=== PATIENT | female | born 1935 | race Asian ===

== ENCOUNTER 2018-03-01 09:48 | Emergency (ER) | payer OTHER ==
[2018-03-01 10:09] VITALS: BMI 19.5
[2018-03-01 11:01] LABS: BASO % 0.5 % (0-2.0); EOS % 0.9 % (0-4.5); HEMATOCRIT 30.7 % (32.4-45.2); HEMOGLOBIN 10.4 GM/dL (10.7-15.3); LYMPH % 12.1 % (8-40); MCH 31.1 pg (25.7-33.7); MEAN CELL VOLUME 91.6 fl (80-96); MEAN PLT VOLUME 7.3 fl (7.5-11.1); MONO % 7.6 % (3.8-10.2); NEUT % 78.9 % (42.8-82.8); PLATELET COUNT 233 K/MM3 (134-434); RBC 3.35 M/mm3 (3.60-5.2); WHITE BLOOD COUNT 7.4 K/mm3 (4.0-10.0)
[2018-03-01 11:20] LABS: INR 0.93 (0.82-1.09); PROTHROMBIN TIME (PATIENT) 10.5 SEC (9.7-13.0)
[2018-03-01 11:25] LABS: ALBUMIN 3.3 g/dl (3.4-5.0); ALK PHOS 55 U/L (45-117); ANION GAP 12 (8-16); BILIRUBIN,TOTAL 0.6 mg/dL (0.2-1.0); BLOOD UREA NITROGEN 16 mg/dL (7-18); CHLORIDE 88 mmol/L (98-107); CO2 25 mmol/L (21-32); CREATININE 0.9 mg/dL (0.55-1.02); GLUCOSE,RANDOM 148 mg/dL (74-106); POTASSIUM 4.1 mmol/L (3.5-5.1); SGOT/AST 18 U/L (15-37); SGPT/ALT 18 U/L (12-78); SODIUM 125 mmol/L (136-145); TOT PROT 6.3 g/dl (6.4-8.2)
--- NOTE | 2018-03-01 12:14 | PDOC ---
History of Present Illness - General Chief Complaint: Injury Stated Complaint: INJURY, FALL/BL.THINNERS Time Seen by Provider: 03/01/18 10:24 History Source: Patient, Spouse Exam Limitations: No Limitations - History of Present Illness Initial Comments: 03/01/18 12:00 82-year-old female status post mechanical fall 3 days ago presents to the ED for evaluation of bruising to the right ribs and right hip. Patient states was walking when she tripped on a area with bunched carpet causing her to fall on her right side striking her head. Patient is also on Plavix and so this decided bring patient to the ER today. Patient had no LOC and has no complaints of headache, visual changes, weakness, or vomiting. states patient has had no change in mentation but concern for the bruising and the fact that she is on Plavix. Occurred: reports: other (3 days ago) Severity: reports: moderate Pain Location: reports: chest, head Method of Injury: Yes: fall Modifying Factors: improves with: None Loss of Consciousness: no loss of consciousness Associated Symptoms (Fall): denies symptoms Past History - Past Medical History Allergies/Adverse Reactions: Allergies Allergy/AdvReac Type Severity Reaction Status Date / Time No Known Allergies Allergy Verified 03/01/18 10:03 Home Medications: Ambulatory Orders Atorvastatin Ca [Lipitor] 20 mg PO HS 09/22/15 Clopidogrel Bisulfate [Plavix -] 75 mg PO DAILY 09/22/15 Isosorbide Mononitrate 60 mg PO DAILY 09/22/15 Metformin HCl [Metformin HCl ER] 750 mg PO DAILY 09/22/15 Metoprolol Succinate [Toprol XL -] 25 mg PO DAILY tab.sr.24h 09/26/15 Anemia: No Asthma: No Cancer: No Cardiac Disorders: Yes (CAD, angina) CVA: No COPD: No CHF: No DVT: No Dementia: No Diabetes: Yes Dialysis: No GI Disorders: No Disorders: No HTN: Yes Hypercholesterolemia: Yes Kidney Stones: No Liver Disease: No Psychiatric Problems: No Seizures: No Thyroid Disease: No Lung CA: No - Surgical History Cardiac Surgery: Yes (card stent) - Immunization History Immunization Up to Date: No - Suicide/Smoking/Psychosocial Hx Smoking History: Never smoked Have you smoked in the past 12 months: No Information on smoking cessation initiated: No Hx Alcohol Use: No Drug/Substance Use Hx: No Substance Use Type: None Hx Substance Use Treatment: No Review of Systems - Review of Systems Able to Perform ROS?: Yes Constitutional: No: Symptoms Reported HEENTM: No: Symptoms Reported Respiratory: No: Symptoms reported Cardiac (ROS): No: Symptoms Reported ABD/GI: No: Symptoms Reported : No: Symptoms Reported Musculoskeletal: Yes: Joint Pain (rt right ribd) Integumentary: Yes: Bruising Neurological: No: Headache, Weakness, Dizziness Hematologic/Lymphatic: Yes: See HPI *Physical Exam - Vital Signs Last Vital Signs Temp Pulse Resp BP Pulse Ox 98.3 F 64 18 116/53 100 03/01/18 10:06 03/01/18 10:06 03/01/18 10:06 03/01/18 10:06 03/01/18 10:06 - Physical Exam General Appearance: Yes: Nourished, Appropriately Dressed. No: Apparent Distress HEENT: positive: EOMI, MARIAH, TMs Normal, Pharynx Normal. negative: Pale Conjunctivae Neck: negative: Tender, Supple, Decreased range of motion Respiratory/Chest: positive: Chest Tender (rt ribs over 10th rib at MAL), Lungs Clear, Normal Breath Sounds. negative: Respiratory Distress, Accessory Muscle Use Cardiovascular: positive: Regular Rhythm, Regular Rate. negative: Murmur Gastrointestinal/Abdominal: positive: Soft, Tenderness (rt lower quadrant and rt suprapubic) Musculoskeletal: negative: CVA Tenderness, Vertebral Tenderness Extremity: positive: Normal Capillary Refill, Normal Inspection, Normal Range of Motion, Tender (rt iliac crest. no deformity/crepitus) Integumentary: positive: Warm, Moist, Ecchymosis (to rt hip, rt chest at 9-11th rib at mal, rt temporal, and mild to left knee, ) Neurologic: positive: Normal Mood/Affect, Motor Strength 5/5 Heart Score/ECG Review - ECG Intrepretation Rhythm: Regular Rhythm (sinus warner at 55) ED Treatment Course - LABORATORY CBC & Chemistry Diagram: 03/01/18 10:55 03/01/18 14:30 - ADDITIONAL ORDERS Additional order review: Laboratory Results 03/01/18 03/01/18 10:55 10:55 PT with INR 10.50 INR 0.93 Sodium 125 L Potassium 4.1 Chloride 88 L Carbon Dioxide 25 Anion Gap 12 BUN 16 Creatinine 0.9 Creat Clearance w eGFR 59.94 Random Glucose 148 H Calcium 8.0 L Total Bilirubin 0.6 AST 18 ALT 18 Alkaline Phosphatase 55 Total Protein 6.3 L Albumin 3.3 L 03/01/18 10:55 RBC 3.35 L MCV 91.6 MCHC 34.0 RDW 14.0 MPV 7.3 L D Neutrophils % 78.9 Lymphocytes % 12.1 D Monocytes % 7.6 Eosinophils % 0.9 Basophils % 0.5 - RADIOLOGY Radiology Studies Ordered: Category Date Time Status HEAD CT WITHOUT CONTRAST [CT] Stat CT Scan 03/01/18 10:[address] WITHOUT CONTRAST [CT] Stat CT Scan 03/01/18 10:44 Ordered RIBS RIGHT SIDE [RAD] Stat Radiology 03/01/18 10:39 Ordered Medical Decision Making - Medical Decision Making 03/01/18 11:34 Pt s/p mechanical fall landing on right side of body then striking head head on the carpet. Pt on exam with ecchymosis to rt temporal, rt rib area , rt iliac crest and mildly to left patella. Pt on plavix. pt to have labs, ua, ekg, ct of head and pelvis along with rib xray. Glascow scale 15. 03/01/18 12:38 Laboratory Tests 09/25/15 09/25/15 09/26/15 05:40 05:40 05:40 WBC Hgb 11.0 Hct Plt Count Neutrophils % Sodium 137 139 Potassium Chloride Carbon Dioxide Anion Gap BUN Creatinine Creat Clearance w eGFR Random Glucose Calcium Total Bilirubin AST ALT Alkaline Phosphatase Total Protein Albumin Ur Specific [place] Urine Ketones Urine Blood Urine Nitrite Ur Leukocyte Esterase 03/01/18 03/01/18 03/01/18 10:55 10:55 11:51 WBC 7.4 Hgb 10.4 L Hct 30.7 L Plt Count 233 Neutrophils % 78.9 Sodium 125 L Potassium 4.1 Chloride 88 L Carbon Dioxide 25 Anion Gap 12 BUN 16 Creatinine 0.9 Creat Clearance w eGFR 59.94 Random Glucose 148 H Calcium 8.0 L Total Bilirubin 0.6 AST 18 ALT 18 Alkaline Phosphatase 55 Total Protein 6.3 L Albumin 3.3 L Ur Specific [place] 1.005 Urine Ketones Negative Urine Blood Negative Urine Nitrite Negative Ur Leukocyte Esterase Negative Glascow scale 15. Patient remains alert and oriented with no complaints patient ordered for 1 L of fluid and will have repeat CT done in 6 hours 03/01/18 12:[address] abdominal CT is negative. Patient does have an acute nondisplaced fourth rib fracture at mid axillary region. Old fractures involving the right 10th 11 and possibly 12th ribs are noted. 03/01/18 15:04 Laboratory Tests 03/01/18 14:30 Sodium 129 L Potassium 4.4 Chloride 94 L Carbon Dioxide 26 Anion Gap 9 BUN 15 Creatinine 0.8 Random Glucose 140 H Calcium 7.5 L Noted improvment but Will order 1 liter NS IVF and then discharged. 03/01/18 16:10 Pt remains asymptomatic. No complaints presently. Ate lunch. Will discharge *DC/Admit/Observation/Transfer Diagnosis at time of Disposition: Fall at home, Hyponatremia, Rib fracture - Discharge Dispostion Disposition: HOME Condition at time of disposition: Improved - Referrals - Patient Instructions Printed Discharge Instructions: How to Prevent Falls, DI for Hyponatremia, DI for Rib Fracture Additional Instructions: Please drink plently of fluids. Eat foods with salt content. Splint rt rib when coughing or deep breathing. Take Motrin or Tylenol for pain. - Post Discharge Activity
[2018-03-01 12:30] LABS: URINE APPEARANCE CLEAR; URINE BILIRUBIN NEGATIVE (<2.0 mg/dL); URINE COLOR STRAW; URINE GLUCOSE (UA) NEGATIVE (NEGATIVE); URINE KETONE NEGATIVE (NEGATIVE); URINE LEUK ESTERASE NEGATIVE (NEGATIVE); URINE NITRITE NEGATIVE (NEGATIVE); URINE PROTEIN NEGATIVE (NEGATIVE); URINE UROBILINOGEN NEGATIVE mg/dL (0.2-1.0)
[2018-03-01] MEDS ORDERED: SODIUM CHLORIDE 1,000 ML IV STA ×2 (12:37→15:03)
--- NOTE | 2018-03-01 12:54 | EKG ---
Test Reason : Blood Pressure : / mmHG Vent. Rate : 055 BPM Atrial Rate : 055 BPM P-R Int : 206 ms QRS Dur : 086 ms QT Int : 402 ms P-R-T Axes : 002 058 062 degrees QTc Int : 384 ms SINUS BRADYCARDIA NONSPECIFIC T WAVE ABNORMALITY ABNORMAL ECG Confirmed by MD RICARDO, STACY ([id number]) on 03/01/2018 12:54:16 PM Referred By: Confirmed By:STACY SILVA MD
[2018-03-01 15:02] LABS: ANION GAP 9 (8-16); BLOOD UREA NITROGEN 15 mg/dL (7-18); CALCIUM 7.5 mg/dL (8.5-10.1); CHLORIDE 94 mmol/L (98-107); CO2 26 mmol/L (21-32); CREATININE 0.8 mg/dL (0.55-1.02); GLUCOSE,RANDOM 140 mg/dL (74-106); POTASSIUM 4.4 mmol/L (3.5-5.1); SODIUM 129 mmol/L (136-145)
[2018-03-01 16:52] VITALS: BP 123/76; PULSE 62; TEMP 98.3
== END 2018-03-01 16:45 | disposition home or self-care (01) ==
LOC: JER 09:48
PROC: 3E0337Z Introduction of Electrolytic and Water Balance Substance into Peripheral Vein, Percutaneous Approach (ICD-10-PCS; principal; 2018-03-01)
DX: S22.31XA Fracture of one rib, right side, initial encounter for closed fracture (principal); W18.09XA Striking against other object with subsequent fall, initial encounter; Y93.01 Activity, walking, marching and hiking; Y92.038 Other place in apartment as the place of occurrence of the external cause; Y99.8 Other external cause status; I25.119 Atherosclerotic heart disease of native coronary artery with unspecified angina pectoris; I10 Essential (primary) hypertension; E78.00 Pure hypercholesterolemia, unspecified; E11.9 Type 2 diabetes mellitus without complications; Z79.84 Long term (current) use of oral hypoglycemic drugs; Z79.01 Long term (current) use of anticoagulants
CPT/HCPCS: 36415; 70450-TC; 71101-TC-RT-FY; 72192-TC; 80048; 80053; 81003; 85025; 85610; 93005; 93010; 96360; 96361; 99283-25; J7030

== ENCOUNTER 2019-06-14 10:11 | Emergency (ER) | payer OTHER ==
[2019-06-14 10:18] VITALS: BMI 25.0
[2019-06-14 11:21] LABS: BASO % 0.8 % (0-2.0); EOS % 0.3 % (0-4.5); HEMATOCRIT 34.8 % (32.4-45.2); HEMOGLOBIN 11.7 GM/dL (10.7-15.3); LYMPH % 13.2 % (8-40); MCH 31.1 pg (25.7-33.7); MCHC 33.7 g/dl (32.0-36.0); MEAN CELL VOLUME 92.2 fl (80-96); MONO % 4.4 % (3.8-10.2); NEUT % 81.3 % (42.8-82.8); PLATELET COUNT 241 K/MM3 (134-434); RBC 3.77 M/mm3 (3.60-5.2); RDW 14.7 % (11.6-15.6); WHITE BLOOD COUNT 8.6 K/mm3 (4.0-10.0)
--- NOTE | 2019-06-14 11:23 | EKG ---
Test Reason : Blood Pressure : / mmHG Vent. Rate : 062 BPM Atrial Rate : 066 BPM P-R Int : 000 ms QRS Dur : 082 ms QT Int : 400 ms P-R-T Axes : 000 058 089 degrees QTc Int : 406 ms ATRIAL FIBRILLATION NONSPECIFIC T WAVE ABNORMALITY ABNORMAL ECG WHEN COMPARED WITH ECG OF 01-MAR-2018 10:49, ATRIAL FIBRILLATION HAS REPLACED SINUS RHYTHM NONSPECIFIC T WAVE ABNORMALITY NOW EVIDENT IN LATERAL LEADS Confirmed by YOLANDA MAYO, NORY ([id number]) on 06/14/2019 11:23:05 AM Referred By: Confirmed By:NORY GUERRERO MD
[2019-06-14 11:56] LABS: ALBUMIN 3.7 g/dl (3.4-5.0); ALK PHOS 56 U/L (45-117); ANION GAP 7 MMOL/L (8-16); BILIRUBIN,TOTAL 0.5 mg/dL (0.2-1); BLOOD UREA NITROGEN 16.5 mg/dL (7-18); CALCIUM 8.5 mg/dL (8.5-10.1); CHLORIDE 102 mmol/L (98-107); CO2 26 mmol/L (21-32); GLUCOSE,RANDOM 215 mg/dL (74-106); POTASSIUM 4.1 mmol/L (3.5-5.1); SGOT/AST 18 U/L (15-37); SGPT/ALT 18 U/L (13-61); SODIUM 136 mmol/L (136-145)
[2019-06-14] MEDS ORDERED: ACETAMINOPHEN 325 MG TABLET (FP) PO ONE (14:00)
[2019-06-14] MEDS ORDERED: ACETAMINOPHEN 325 MG TABLET (FP) ONE (14:07)
--- NOTE | 2019-06-14 14:07 | PDOC ---
Documentation entered by Courtney Mcmahon SCRIBE, acting as scribe for Steven Acosta MD. Steven Acosta MD: This documentation has been prepared by the Lisandro escalante Sammi, SCRIBE, under my direction and personally reviewed by me in its entirety. I confirm that the documentation accurately reflects all work, treatment, procedures, and medical decision making performed by me. History of Present Illness - General Chief Complaint: Lightheaded Stated Complaint: FALL/ LF SHOULDER INJURY - History of Present Illness Initial Comments: 06/14/19 10:55 The patient is an 84 year old female who presents to the emergency department for evaluation s/p unwitnessed fall around 2am this morning. She cannot recall the cause of the fall. The patient is currently complaining of a mild frontal headache and left shoulder pain. Denies neck or back pain. Denies chest pain. Past History - Past Medical History Allergies/Adverse Reactions: Allergies Allergy/AdvReac Type Severity Reaction Status Date / Time No Known Allergies Allergy Verified 06/14/19 10:19 Home Medications: Ambulatory Orders Atorvastatin Ca [Lipitor] 20 mg PO HS 09/22/15 Clopidogrel Bisulfate [Plavix -] 75 mg PO DAILY 09/22/15 metFORMIN HCL [Metformin ER Osmotic] 750 mg PO DAILY 09/22/15 Alendronate Sodium [Fosamax] 1 tab PO WEEKLY 06/14/19 Amlodipine Besylate [Norvasc -] 10 mg PO DAILY 06/14/19 Aspirin [ASA -] 81 mg PO DAILY 06/14/19 Hydrochlorothiazide [Hctz -] 25 mg PO DAILY 06/14/19 Losartan Potassium 100 mg PO DAILY 06/14/19 Metoprolol Succinate [Toprol XL -] 50 mg PO DAILY 06/14/19 Zolpidem Tartrate [Ambien] 10 mg PO HS 06/14/19 traZODone HCL [Trazodone HCl] 50 mg PO DAILY 06/14/19 Anemia: No Asthma: No Cancer: No Cardiac Disorders: Yes (CAD, angina) CVA: No COPD: No CHF: No DVT: No Dementia: No Diabetes: Yes Dialysis: No GI Disorders: No Disorders: No HTN: Yes Hypercholesterolemia: Yes Kidney Stones: No Liver Disease: No Psychiatric Problems: No Seizures: No Thyroid Disease: No Lung CA: No - Surgical History Cardiac Surgery: Yes (card stent) - Immunization History Immunization Up to Date: No - Psycho Social/Smoking Cessation Hx Smoking History: Never smoked Have you smoked in the past 12 months: No Hx Alcohol Use: No Drug/Substance Use Hx: No Substance Use Type: None Hx Substance Use Treatment: No Review of Systems - Review of Systems Comments:: 06/14/19 10:56 CONSTITUTIONAL: No fever, no chills, no fatigue CARDIOVASCULAR: No chest pain, no palpitations RESPIRATORY: No cough, no SOB GI: No abdominal pain, no nausea, no vomiting, no constipation, no diarrhea GENITOURINARY: No dysuria, no frequency, no hematuria MUSKULOSKELETAL: +left shoulder pain. No backpain, no joint pain. SKIN: No rash NEURO: +headache. *Physical Exam - Vital Signs Last Vital Signs Temp Pulse Resp BP Pulse Ox 97.9 F 61 16 127/57 L 97 06/14/19 10:13 06/14/19 10:13 06/14/19 10:13 06/14/19 10:13 06/14/19 10:13 - Physical Exam Comments: 06/14/19 13:02 CONSTITUTIONAL: Well-appearing; well-nourished; in no apparent distress HEAD: Normocephalic; atraumatic EYES: PERRL; EOM intact ENMT: External appears normal; normal oropharynx NECK: Supple; non-tender; no cervical lymphadenopathy CARD: Normal S1, S2; no murmurs, rubs, or gallops RESP: Normal chest excursion with respiration; breath sounds clear and equal bilaterally; no wheezes, rhonchi, or rales ABD: Soft, non-distended; non-tender; no palpable organomegaly, no palpable hernias EXT: +Ecchymosis pain to left shoulder limited abductions flexion due to pain. distal pulses intact SKIN: Warm, dry, no rash NEURO: Normal speech, cranial nerves II-XII intact, negative pronator drift, 5/ 5 motor x4, normal sensation to light touch in all 4 extremities, normal cerebellar exam, normal reflexes and tone Heart Score/ECG Review - ECG Impressions Comment:: 06/14/19 11:15 normal sinus with premature atrial contractions ED Treatment Course - LABORATORY CBC & Chemistry Diagram: 06/14/19 11:00 06/14/19 11:00 - ADDITIONAL ORDERS Additional order review: Laboratory Results 06/14/19 11:00 Sodium 136 Potassium 4.1 Chloride 102 Carbon Dioxide 26 Anion Gap 7 L BUN 16.5 Creatinine 1.0 Est GFR (CKD-EPI)AfAm 59.91 Est GFR (CKD-EPI)NonAf 51.69 Random Glucose 215 H Calcium 8.5 Total Bilirubin 0.5 AST 18 ALT 18 Alkaline Phosphatase 56 Creatine Kinase 126 Troponin I < 0.02 Total Protein 7.0 Albumin 3.7 06/14/19 11:00 RBC 3.77 MCV 92.2 MCHC 33.7 RDW 14.7 MPV 8.0 Neutrophils % 81.3 Lymphocytes % 13.2 Monocytes % 4.4 Eosinophils % 0.3 Basophils % 0.8 - RADIOLOGY Radiology Studies Ordered: Category Date Time Status CERVICAL SPINE CT W/O CONTR [CT] Stat CT Scan 06/14/19 10:[address] WITHOUT CONTRAST [CT] Stat CT Scan 06/14/19 10:54 Completed CHEST - PA [RAD] Stat Radiology 06/14/19 12:57 Taken PELVIS [RAD] Stat Radiology 06/14/19 10:59 Taken SHOULDER-RIGHT [RAD] Stat Radiology 06/14/19 10:59 Completed Medical Decision Making - Medical Decision Making 06/14/19 14:01 Patient is well-appearing 84-year-old female with history of diabetes, hypertension who presented to the ER for left shoulder pain after a mechanical fall several hours prior to arrival. Patient had taken zolpidem the night before and fell down in the middle the night. In the ER, patient was noted to be in O x3, with CT of head and cervical spine revealing no evidence of acute traumatic injury. Right shoulder and pelvic x-rays reveal no evidence of fracture dislocation. Chest x-ray reveals multiple previous rib fractures but no evidence of infiltrate or effusion. EKG reveals normal sinus rhythm with PACs but no evidence of ischemia or arrhythmia. Computer interpretation of atrial fibrillation is incorrect. I advised the patient and her that zolpidem and trazodone are contraindicated in the elderly. They have expressed understanding. They will follow-up with the PMD promptly and return immediately for recurring falls. Discharge - Discharge Information Problems reviewed: Yes Clinical Impression/Diagnosis: Contusion of shoulder, right Qualifiers: Encounter type: initial encounter Qualified Code(s): S40.011A - Contusion of right shoulder, initial encounter Head injury due to trauma Qualifiers: Encounter type: initial encounter Qualified Code(s): S09.90XA - Unspecified injury of head, initial encounter Fall at home Qualifiers: Encounter type: initial encounter Qualified Code(s): W19.XXXA - Unspecified fall, initial encounter; Y92.009 - Unspecified place in unspecified non- institutional (private) residence as the place of occurrence of the external cause Condition: Stable Disposition: HOME - Follow up/Referral Referrals: ON STAFF,NOT [Primary Care Provider] - Twin Gonzales MD [Staff Physician] - - Patient Discharge Instructions Patient Printed Discharge Instructions: DI for Closed Head Injury, DI for Contusion - Post Discharge Activity
[2019-06-14 14:14] VITALS: BP 118/63; PULSE 62; TEMP 98.2
== END 2019-06-14 14:24 | disposition home or self-care (01) ==
LOC: JER 10:11
DX: S40.011A Contusion of right shoulder, initial encounter (principal); S09.90XA Unspecified injury of head, initial encounter; W18.39XA Other fall on same level, initial encounter; Y93.9 Activity, unspecified; Y92.009 Unspecified place in unspecified non-institutional (private) residence as the place of occurrence of the external cause; Z95.5 Presence of coronary angioplasty implant and graft; E78.00 Pure hypercholesterolemia, unspecified; I25.10 Atherosclerotic heart disease of native coronary artery without angina pectoris; E11.9 Type 2 diabetes mellitus without complications; I10 Essential (primary) hypertension
CPT/HCPCS: 36415; 70450-TC; 71045-TC-FY; 72125-TC; 72170-TC-FY; 73030-TC-RT-FY; 80053; 82550; 84484; 85025; 93005; 93010; 99284-25

== ENCOUNTER 2019-08-10 10:06 | Inpatient (IN) | payer OTHER ==
[2019-08-10 10:21] VITALS: BMI 25.2
[2019-08-10] MEDS ORDERED: KETOROLAC TROMETHAMINE 30 MG/1 ML VIAL IM ONE (10:39)
--- NOTE | 2019-08-10 10:40 | PDOC ---
History of Present Illness - General Chief Complaint: Injury Stated Complaint: FALL Time Seen by Provider: 08/10/19 10:21 History Source: Patient, Family Exam Limitations: No Limitations - History of Present Illness Initial Comments: 08/10/19 10:39 HPI 84-year-old female PMHx of DM, HTN, hyperlipidemia, CAD x/p PCI on ASA and plavix presenting with mechanical trip and fall after missing 1 step and fell onto her back onto concrete. No LOC. Complaining of mild headache, and diffuse back pain at the site of her trauma. No prodromal symptoms including dizziness, chest pain or shortness of breath. No recent infections including cough or congestion fevers or chills. no history of Afib, no anticoagulant use +frequent falls, +2nd fall in 2 months, last in May 2019 which she came to [facility] for. PMD Dr Phan, [place] Trauma ROS: Constitutional: no fevers or chills. HEENT: +headache, no dizziness. No visual or hearing changes. No dental pain. No neck pain CVS: no chest pain or palpitations, no syncope Resp: no shortness of breath Abdomen: no abdominal pain MUSCULOSKELETAL: No joint pain and swelling. No muscle pain/arthralgias. Back: +back pain SKIN: no redness or skin changes, no discharge, no rash. No wounds. Hematologic: no easy bruising/bleeding. NEUROLOGIC: No weakness, numbness or tingling. +headache Allergic/Immunologic: no allergies All other systems reviewed and negative, or as documented in HPI. Physical exam: General: GCS 15 - NAD, well appearing HEENT: NCAT, PERRL, EOMI. Airway intact. No battles sign or raccoon eyes. No e/ o ocular. Dentition intact. No e/o septal hematoma, nasal bridge stable. Neck: neck supple, no midline C spine tenderness or deformity, ROM intact. No anterior mass or crepitus, trachea midline. Resp: Lungs clear bilaterally Chest: no clavicle or chest wall tenderness or crepitus CVS: irregularly irregular, 2+ pulses throughout. Abdomen: Abdomen soft, nontender, nondistended. Back: Back + midline spinal tenderness along thoracic/lumbar spine, ROM limited 2/2 pain, no stepoffs. MSK: Pelvis stable, Extremities symmetric, no focal areas of tenderness or deformities, proximal and distally; no pain on axial loading. FROM in all extrem. Neuro: Alert, oriented appropriately. CN II-XII grossly symmetric and intact. no focal neuro deficits. Sensation and strength intact throughout. Gait normal/ stable. clear speech Skin: intact, normal color and well perfused. 08/10/19 10:40 08/10/19 10:41 08/10/19 11:20 08/10/19 11:20 08/10/19 14:05 08/10/19 14:52 Past History - Past Medical History Allergies/Adverse Reactions: Allergies Allergy/AdvReac Type Severity Reaction Status Date / Time ibuprofen Allergy Severe Verified 08/10/19 10:48 Home Medications: Ambulatory Orders Atorvastatin Ca [Lipitor] 20 mg PO HS 09/22/15 Clopidogrel Bisulfate [Plavix -] 75 mg PO DAILY 09/22/15 metFORMIN HCL [Metformin ER Osmotic] 750 mg PO DAILY 09/22/15 Alendronate Sodium [Fosamax] 1 tab PO WEEKLY 06/14/19 Amlodipine Besylate [Norvasc -] 10 mg PO DAILY 06/14/19 Aspirin [ASA -] 81 mg PO DAILY 06/14/19 Hydrochlorothiazide [Hctz -] 25 mg PO DAILY 06/14/19 Losartan Potassium 100 mg PO DAILY 06/14/19 Metoprolol Succinate [Toprol XL -] 50 mg PO DAILY 06/14/19 Zolpidem Tartrate [Ambien] 10 mg PO HS 06/14/19 traZODone HCL [Trazodone HCl] 50 mg PO DAILY 06/14/19 Anemia: No Asthma: No Cancer: No Cardiac Disorders: Yes (CAD, angina) CVA: No COPD: No CHF: No DVT: No Dementia: No Diabetes: Yes Dialysis: No GI Disorders: No Disorders: No HTN: Yes Hypercholesterolemia: Yes Kidney Stones: No Liver Disease: No Psychiatric Problems: No Seizures: No Thyroid Disease: No Lung CA: No - Surgical History Cardiac Surgery: Yes (card stent) - Immunization History Immunization Up to Date: No - Psycho Social/Smoking Cessation Hx Smoking History: Never smoked Have you smoked in the past 12 months: No Hx Alcohol Use: No Drug/Substance Use Hx: No Substance Use Type: None Hx Substance Use Treatment: No *Physical Exam - Vital Signs Last Vital Signs Temp Pulse Resp BP Pulse Ox 98.3 F 69 18 122/79 95 12/12/19 10:19 08/10/19 10:19 08/10/19 10:19 08/10/19 10:19 08/10/19 10:19 Heart Score/ECG Review #1 ECG reviewed & interpreted by me at: 10:25 General ECG Interpretation: Normal Rate, Normal Intervals 08/10/19 11:20 Atrial fibrillation at 81 bpm, nonspecific T wave abnormalities diffusely change from prior EKG ED Treatment Course - LABORATORY CBC & Chemistry Diagram: 08/10/19 11:30 08/10/19 11:30 - RADIOLOGY Radiology Studies Ordered: Category Date Time Status CERVICAL SPINE CT W/O CONTR [CT] Stat CT Scan 08/10/19 10:[address] WITHOUT CONTRAST [CT] Stat CT Scan 08/10/19 10:[address] W/O CONTRAST [CT] Stat CT Scan 08/10/19 10:[address] W/O CONTRAST [CT] Stat CT Scan 08/10/19 10:36 Ordered Medical Decision Making - Medical Decision Making 08/10/19 10:40 Vital Signs Temp Pulse Resp BP Pulse Ox 98.3 F 69 18 122/79 95 08/10/19 10:19 08/10/19 10:19 08/10/19 10:19 08/10/19 10:19 08/10/19 10:19 vitals wnl, reassuring Trauma ddx: ICH, SDH/ EDH, C spine injury/strain, extremity sprain/fracture, pelvis fracture. MSK contusion, msk spasms. compression fracture. Clinically doubt Intra abdominal and thoracic injuries/bleed Trauma Neg: No evidence of skull fracture, intracranial bleed, dental trauma, cervical, thoracic, or vertebral fracture or subluxation, no suspicion of thoracic, abdominal, pelvic or extremity injury by exam. Given Percocet here for headache and lower back pain. CT head and C-spine, T and L-spine as well to evaluate for compression fracture. She has no respiratory distress, no chest abdomen or extremity complaints. Abdomen is soft and nontender. No skin changes or discoloration or ecchymosis to suggest underlying organ injury or bleeding. Pelvis is stable. Neurologically intact, GCS is 15 speech is clear. no prodromal sx to suggest cardio/neurogenic etiology Will pain control, imaging and reassess. 08/10/19 14:03 CT head unremarkable for head bleed or injuries. No evidence of fracture noted on cervical, thoracic and lumbar spine, incidental hemangiomas noted. Degenerative changes are noted in C4-C6 levels. Patient was reassessed continues to have mid back pain, worse with moving and unable to ambulate, unsafe for discharge at this time. Will give additional dose of analgesia patient already has Lidoderm patch on her back without effect. treating with IV ceftriaxone, follow-up on urine cultures. labs and lytes wnl, trop neg. no e/o syncope. chads vasc score is 5 with age, comorbidities, will need AC, but pt has fall risk. defer to cards for now. Will admit for inability ambulate, back pain after fall, UTI, new onset Afib? unsafe for discharge at this time. s/o to [facility], admitting to Dr Jara. 08/10/19 14:06 08/10/19 14:52 08/10/19 14:53 Discharge - Discharge Information Problems reviewed: Yes Clinical Impression/Diagnosis: Atrial fibrillation Back pain Qualifiers: Back pain location: back pain in unspecified location Chronicity: acute Back pain laterality: midline Qualified Code(s): M54.9 - Dorsalgia, unspecified UTI (urinary tract infection) Qualifiers: Urinary tract infection type: site unspecified Hematuria presence: without hematuria Qualified Code(s): N39.0 - Urinary tract infection, site not specified Condition: Fair - Admission Yes - Follow up/Referral Referrals: ON STAFF,NOT [Primary Care Provider] - - Patient Discharge Instructions - Post Discharge Activity
[2019-08-10 11:44] LABS: BASO % 0.4 % (0-2.0); EOS % 0.4 % (0-4.5); HEMATOCRIT 35.5 % (32.4-45.2); HEMOGLOBIN 11.9 GM/dL (10.7-15.3); LYMPH % 14.7 % (8-40); MCH 31.2 pg (25.7-33.7); MCHC 33.6 g/dl (32.0-36.0); MEAN PLT VOLUME 8.3 fl (7.5-11.1); MONO % 4.1 % (3.8-10.2); NEUT % 80.4 % (42.8-82.8); PLATELET COUNT 267 K/MM3 (134-434); RBC 3.82 M/mm3 (3.60-5.2); RDW 14.1 % (11.6-15.6); WHITE BLOOD COUNT 11.9 K/mm3 (4.0-10.0)
[2019-08-10 11:47] LABS: EPI CELLS 0.4 /HPF (0-5/HPF); HYALINE CASTS 2 /lpf (0-8); PH,URINE 6.5 (5.0-8.0); URINE APPEARANCE CLEAR; URINE BILIRUBIN NEGATIVE (NEGATIVE); URINE COLOR YELLOW; URINE GLUCOSE (UA) NEGATIVE (NEGATIVE); URINE KETONE NEGATIVE (NEGATIVE); URINE LEUK ESTERASE TRACE (NEGATIVE); URINE NITRITE POSITIVE (NEGATIVE); URINE PROTEIN NEGATIVE (NEGATIVE); URINE RBC 1 /hpf (0-4); URINE UROBILINOGEN 0.2 mg/dL (0.2-1.0); URINE WBC 5 /hpf (0-5)
[2019-08-10 12:12] LABS: ALK PHOS 63 U/L (45-117); ANION GAP 8 MMOL/L (8-16); BILIRUBIN,TOTAL 0.7 mg/dL (0.2-1); BLOOD UREA NITROGEN 14.2 mg/dL (7-18); CALCIUM 9.1 mg/dL (8.5-10.1); CHLORIDE 98 mmol/L (98-107); CO2 25 mmol/L (21-32); CREATININE 0.9 mg/dL (0.55-1.3); GLUCOSE,RANDOM 108 mg/dL (74-106); POTASSIUM 3.8 mmol/L (3.5-5.1); SGOT/AST 25 U/L (15-37); SGPT/ALT 20 U/L (13-61); SODIUM 131 mmol/L (136-145); TOT PROT 7.4 g/dl (6.4-8.2)
[2019-08-10] MEDS ORDERED: CEFTRIAXONE 1,000 MG in DEXTROSE 5%-WATER - 50 ML IVPB ONE (14:02)
[2019-08-10] MEDS ORDERED: morphine CARPU-JECT 4 MG/1 ML DISP.SYRIN IVPUSH ONE (14:02)
[2019-08-10] MEDS ORDERED: MORPHINE SULFATE 2 MG/ML VIAL ONE (14:52)
[2019-08-10] MEDS ORDERED: CEFTRIAXONE 1 GM/50 ML BAG ONE (14:52)
--- NOTE | 2019-08-10 15:42 | HP ---
CHIEF COMPLAINT: falls at home, back pain PCP: HISTORY OF PRESENT ILLNESS: Patient is an 84 year old female with a significant past medical history of diabetes, hypertension, hyperlipidemia, CAD x/p PCI who presented to the ED today s/p fall secondary to tripping over a wet floor and fell onto her back onto concrete. She denies any LOC loss but complains of mild headache and severe lower back pain. She denies any dizziness, chest pain or shortness of breath prior to fall. No fevers, no recent infections, no chills. No previous history of irregular heart rate and was to follow up at the end of this month for follow up with a new sleep medicine physician. Patient reports frequent falls at home, a total of 3 falls since February 2019 without LOC loss, no incontinence post fall, no history of seizures. She reports intermittent dizziness but denies any dizziness with the fall she had today. ER course was notable for: (1) thoracic spine ct w/o contrast, no evidence of acute fx. hemangioma t9, lumbar spine: degenerative changes, multifocal. cervical spine: degenerative changes c4-5 (2) atrial fibrillation at 81 bpm, nonspecific T wave abnormalities (3) head ct negative Recent Travel: PAST MEDICAL HISTORY: diabetes, hypertension, hyperlipidemia, CAD x/p PCI 2003 PAST SURGICAL HISTORY: Social History: Smoking: none reported Alcohol: none reported Drugs: none reported Allergies ibuprofen Allergy (Severe, Verified 08/10/19 10:48) HOME MEDICATIONS: Home Medications Medication Instructions Recorded Atorvastatin Ca [Lipitor] 20 mg PO HS 09/22/15 Clopidogrel Bisulfate [Plavix -] 75 mg PO DAILY 09/22/15 metFORMIN HCL [Metformin ER 750 mg PO DAILY 09/22/15 Osmotic] Alendronate Sodium [Fosamax] 1 tab PO WEEKLY 06/14/19 Amlodipine Besylate [Norvasc -] 10 mg PO DAILY 06/14/19 Aspirin [ASA -] 81 mg PO DAILY 06/14/19 Hydrochlorothiazide [Hctz -] 25 mg PO DAILY 06/14/19 Losartan Potassium 100 mg PO DAILY 06/14/19 Metoprolol Succinate [Toprol XL -] 50 mg PO DAILY 06/14/19 Zolpidem Tartrate [Ambien] 10 mg PO HS 06/14/19 traZODone HCL [Trazodone HCl] 50 mg PO DAILY 06/14/19 REVIEW OF SYSTEMS CONSTITUTIONAL: Absent: fever, chills, diaphoresis, generalized weakness, malaise, loss of appetite, weight change HEENT: Absent: rhinorrhea, nasal congestion, throat pain, throat swelling, difficulty swallowing, mouth swelling, ear pain, eye pain, visual changes CARDIOVASCULAR: Absent: chest pain, peripheral edema RESPIRATORY: Absent: cough, shortness of breath, dyspnea with exertion, orthopnea, wheezing, stridor, hemoptysis GASTROINTESTINAL: Absent: abdominal pain, abdominal distension, nausea, vomiting, diarrhea, constipation, melena, hematochezia GENITOURINARY: Absent: dysuria, frequency, urgency, hesitancy, hematuria, flank pain, genital pain MUSCULOSKELETAL: Absent: joint swelling, neck pain SKIN: Absent: rash, itching, pallor HEMATOLOGIC/IMMUNOLOGIC: Absent: easy bleeding, easy bruising, lymphadenopathy, frequent infections ENDOCRINE: Absent: unexplained weight gain, unexplained weight loss, heat intolerance, cold intolerance NEUROLOGIC: Absent: headache, focal weakness or paresthesias, mental status changes, bladder or bowel incontinence PSYCHIATRIC: Absent: anxiety, depression, suicidal or homicidal ideation, hallucinations. PHYSICAL EXAMINATION Vital Signs - 24 hr 08/10/19 08/10/19 08/10/19 10:19 14:40 15:23 Temperature 98.3 F Pulse Rate 69 Pulse Rate [ 81 83 Radial] Respiratory 18 18 18 Rate Blood Pressure 122/79 Blood Pressure 121/71 120/62 [Left Arm] O2 Sat by Pulse 95 98 98 Oximetry (%) GENERAL: Awake, alert, and fully oriented HEAD: Normal with no signs of trauma. EYES: Pupils equal, round and reactive to light, extraocular movements intact, sclera anicteric, conjunctiva clear. No lid lag. EARS, NOSE, THROAT: Ears normal, nares patent, oropharynx clear without exudates. Moist mucous membranes. NECK: Normal range of motion, supple without lymphadenopathy, JVD, or masses. LUNGS: Breath sounds equal, clear to auscultation bilaterally. HEART: irregular 80s ABDOMEN: Soft, nontender, not distended, normoactive bowel sounds, no guarding, no rebound, no masses. No hepatomegaly or splenomegaly. MUSCULOSKELETAL: Normal range of motion at all joints. No bony deformities or tenderness. No CVA tenderness. UPPER EXTREMITIES: No peripheral edema. LOWER EXTREMITIES: No peripheral edema. NEUROLOGICAL: Normal speech. PSYCHIATRIC: Cooperative. Good eye contact. Appropriate mood and affect. SKIN: Warm, dry, normal turgor, no rashes or lesions noted, normal capillary refill. Laboratory Results - last 24 hr 08/10/19 08/10/19 08/10/19 11:25 11:30 11:30 WBC 11.9 H RBC 3.82 Hgb 11.9 Hct 35.5 MCV 93.0 MCH 31.2 MCHC 33.6 RDW 14.1 Plt Count 267 MPV 8.3 Absolute Neuts (auto) 9.6 H Neutrophils % 80.4 Lymphocytes % 14.7 Monocytes % 4.1 Eosinophils % 0.4 Basophils % 0.4 Nucleated RBC % 0 Sodium 131 L Potassium 3.8 Chloride 98 Carbon Dioxide 25 Anion Gap 8 BUN 14.2 Creatinine 0.9 Est GFR (CKD-EPI)AfAm 68.05 Est GFR (CKD-EPI)NonAf 58.71 Random Glucose 108 H Calcium 9.1 Total Bilirubin 0.7 AST 25 ALT 20 Alkaline Phosphatase 63 Creatine Kinase 134 Troponin I < 0.02 Total Protein 7.4 Albumin 4.0 Urine Color Yellow Urine Appearance Clear Urine pH 6.5 Ur Specific [place] 1.009 L Urine Protein Negative Urine Glucose (UA) Negative Urine Ketones Negative Urine Blood Negative Urine Nitrite Positive H Urine Bilirubin Negative Urine Urobilinogen 0.2 Ur Leukocyte Esterase Trace Urine WBC (Auto) 5 Urine RBC (Auto) 1 Urine Casts (Auto) 2 U Epithel Cells (Auto) 0.4 Urine Bacteria (Auto) 2371.0 ASSESSMENT/PLAN: Problem List - Problem (1) Near syncope Assessment/Plan: mutiple falls at home of uncertain etiology some falls sound like mechanical falls but also reports intermittent dizziness noted to have new onset afib not on any anticoagulation head ct with mild/moderate atrophy troponins negative x 2 will need orthostatics, if not orthostatic, consider outpatient tilt table test ECHO 09/24/15 with normal LV size and function. No regional wall motion abnormalities, mild TR, mild pulmonic valvular regurg Hold medications that can cause dizziness, hold ambien Code(s): R55 - SYNCOPE AND COLLAPSE (2) Fall at home Assessment/Plan: for physical therapy eval Many falls at home, at least 3 in the last 5 months per no LOC loss Lidoderm patch and percocet per pain management start on physical therapy Code(s): W19.XXXA - UNSPECIFIED FALL, INITIAL ENCOUNTER; Y92.099 - UNSP PLACE IN OTH NON-INSTITUTIONAL RESIDENCE PLACE Qualifiers: Encounter type: initial encounter Qualified Code(s): W19.XXXA - Unspecified fall, initial encounter; Y92.009 - Unspecified place in unspecified non-institutional (private) residence as the place of occurrence of the external cause (3) Hypertension Assessment/Plan: continue home medications monitor on tele orthostatics to be ordered for falls Code(s): I10 - ESSENTIAL (PRIMARY) HYPERTENSION (4) Diabetes Assessment/Plan: Hmga1c in a.m. novolg with monitoring of bgms Code(s): E11.9 - TYPE 2 DIABETES MELLITUS WITHOUT COMPLICATIONS (5) Atrial fibrillation Assessment/Plan: new onset not on any anticoagulation has not followed with her cardiolgist and has a follow up appointment per this month per her Code(s): I48.91 - UNSPECIFIED ATRIAL FIBRILLATION (6) CAD (coronary artery disease) Assessment/Plan: Continue Plavix Continue Lipitor Code(s): I25.10 - ATHSCL HEART DISEASE OF [place] CORONARY ARTERY W/O ANG PCTRS (7) Back pain Assessment/Plan: s/p fall pain management physical therapy Code(s): M54.9 - DORSALGIA, UNSPECIFIED Qualifiers: Back pain location: back pain in unspecified location Chronicity: acute Back pain laterality: midline Qualified Code(s): M54.9 - Dorsalgia, unspecified (8) Hyponatremia Assessment/Plan: monitor with daily labs Code(s): E87.1 - HYPO-OSMOLALITY AND HYPONATREMIA (9) UTI (urinary tract infection) Assessment/Plan: UA with + nitrate, bacteria 2371 start on ceftriaxone, urine culture pending Code(s): N39.0 - URINARY TRACT INFECTION, SITE NOT SPECIFIED Visit type - Emergency Visit Emergency Visit: Yes ED Registration Date: 08/10/19 Care time: The patient presented to the Emergency Department on the above date and was hospitalized for further evaluation of their emergent condition. - New Patient This patient is new to me today: Yes Date on this admission: 08/11/19 - Critical Care Critical Care patient: No
[2019-08-10] MEDS: LIDOCAINE 5% TOPICAL PATCH TP SCH (18:17)
[2019-08-10] MEDS ORDERED: LIDOCAINE 5% TOPICAL PATCH ONE (20:40)
[2019-08-10] MEDS ORDERED: oxyCODONE HCL 5 MG TABLET ONE (20:53)
[2019-08-10] MEDS: oxyCODONE HCL 5 MG TABLET PO PRN (20:58)
[2019-08-10] MEDS: LIDOCAINE PATCH REMOVAL MC SCH (22:16)
[2019-08-10] MEDS ORDERED: ZOLPIDEM TARTRATE 5 MG TABLET PO ONE (22:58)
[2019-08-10] MEDS ORDERED: ZOLPIDEM TARTRATE 5 MG TABLET ONE (23:09)
[2019-08-10] MEDS ORDERED: ATORVASTATIN CA 20 MG TABLET (FP) ONE (23:10)
[2019-08-10] MEDS: ATORVASTATIN CA 20 MG TABLET (FP) PO SCH (23:19)
[2019-08-10] MEDS: INSULIN SLIDING SCALE (NOVOLOG) 1 VIAL SQ SCH (23:19)
[2019-08-11 06:25] LABS: BASO % 0.5 % (0-2.0); EOS % 0.6 % (0-4.5); HEMATOCRIT 32.3 % (32.4-45.2); HEMOGLOBIN 11.2 GM/dL (10.7-15.3); LYMPH % 15.1 % (8-40); MCH 31.8 pg (25.7-33.7); MCHC 34.6 g/dl (32.0-36.0); MEAN CELL VOLUME 91.9 fl (80-96); MEAN PLT VOLUME 8.1 fl (7.5-11.1); MONO % 5.8 % (3.8-10.2); PLATELET COUNT 231 K/MM3 (134-434); RBC 3.51 M/mm3 (3.60-5.2); RDW 13.6 % (11.6-15.6); WHITE BLOOD COUNT 6.4 K/mm3 (4.0-10.0)
[2019-08-11 06:58] LABS: ALBUMIN 3.3 g/dl (3.4-5.0); BILIRUBIN,TOTAL 0.8 mg/dL (0.2-1); BLOOD UREA NITROGEN 17.2 mg/dL (7-18); CALCIUM 8.9 mg/dL (8.5-10.1); CREATININE 0.9 mg/dL (0.55-1.3); MAGNESIUM 1.8 mg/dL (1.8-2.4); POTASSIUM 3.7 mmol/L (3.5-5.1); TOT PROT 6.6 g/dl (6.4-8.2)
[2019-08-11] MEDS: INSULIN SLIDING SCALE (NOVOLOG) 1 VIAL SQ SCH ×4 (08:43→22:27)
--- NOTE | 2019-08-11 09:30 | CONSULT ---
Consult - text type - Consultation Consultation Note: [facility] *LIVE* Neurology CHIEF COMPLAINT: falls at home, back pain HISTORY OF PRESENT ILLNESS: Patient is an 84 year old Greenlandic speaking (but understands some Haitian) female with a significant past medical history of diabetes, hypertension, hyperlipidemia, CAD x/p PCI who presented to the ED on day of admission s/p fall secondary to tripping over a wet floor and fell onto her back onto concrete. She denies any LOC loss but complains of mild headache and severe lower back pain. She denies any dizziness per notes, chest pain or shortness of breath prior to fall. No fevers, no recent infections, no chills. No previous history of irregular heart rate and was to follow up at the end of this month for follow up with a new safety director. Patient reports frequent falls at home, a total of 3 falls since February 2019 without LOC loss, no incontinence post fall, no history of seizures. She reports intermittent dizziness but denies any dizziness with the fall she had today. Head CT completed, mild to moderate atrophy with no evidence of acute pathology. Cervical spine CT, indicates degenerative changes, no fracture. 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 Lumbar spine ct indicates multifocal degenerative changes with possible neuroforaminal compromise, no acute fracture. Carotid doppler completed, no evidence of artery stenosis. EKG indicates atrial fibrillation at 81 bpm, nonspecific T wave abnormalities. During my evaluation, she appeared fatigued and slightly confused. Will order MRI to ule out CVA She may benefit from physical therapy and short-term rehabilitation to help with her gait and ambulation which remains unsteady. We'll need evaluation regarding further assistive devices. PAST MEDICAL HISTORY: diabetes, hypertension, hyperlipidemia, CAD x/p PCI 2003 PAST SURGICAL HISTORY: Social History: Smoking: none reported Alcohol: none reported Drugs: none reported Allergies ibuprofen Allergy (Severe, Verified 08/10/19 10:48) HOME MEDICATIONS: Ambulatory Orders Atorvastatin Ca [Lipitor] 20 mg PO HS 09/22/15 Clopidogrel Bisulfate [Plavix -] 75 mg PO DAILY 09/22/15 metFORMIN HCL [Metformin ER Osmotic] 750 mg PO DAILY 09/22/15 Alendronate Sodium [Fosamax] 1 tab PO WEEKLY 06/14/19 Amlodipine Besylate [Norvasc -] 10 mg PO DAILY 06/14/19 Aspirin [ASA -] 81 mg PO DAILY 06/14/19 Hydrochlorothiazide [Hctz -] 25 mg PO DAILY 06/14/19 Losartan Potassium 100 mg PO DAILY 06/14/19 Metoprolol Succinate [Toprol XL -] 50 mg PO DAILY 06/14/19 Zolpidem Tartrate [Ambien] 10 mg PO HS 06/14/19 traZODone HCL [Trazodone HCl] 50 mg PO DAILY 06/14/19 Active Medications Amlodipine Besylate (Norvasc -) 10 mg PO DAILY [facility] Aspirin (Asa -) 81 mg PO DAILY [facility] Atorvastatin Calcium (Lipitor -) 20 mg PO HS [facility] Last Admin: 08/10/19 23:19 Dose: 20 mg Clopidogrel Bisulfate (Plavix -) 75 mg PO DAILY [facility] Enoxaparin Sodium (Lovenox -) 60 mg SQ BID [facility] Hydrochlorothiazide (Hctz -) 25 mg PO DAILY [facility] Ceftriaxone Sodium 1 gm/ (Dextrose) 50 mls @ 200 mls/hr IVPB DAILY [facility]; Protocol Insulin Aspart (Novolog Vial Sliding Scale -) 1 vial SQ ACHS [facility]; Protocol Last Admin: 08/11/19 08:43 Dose: Not Given Lidocaine (Lidoderm Patch -) 1 patch TP DAILY [facility] Last Admin: 08/10/19 18:17 Dose: Not Given Losartan Potassium (Cozaar -) 100 mg PO DAILY [facility] Melatonin (Melatonin) 1 mg PO HS [facility] Metoprolol Succinate (Toprol Xl -) 50 mg PO DAILY [facility] Miscellaneous (Lidoderm Patch Removal) 1 each MC DAILY@2200 [facility] Last Admin: 08/10/19 22:16 Dose: 1 each Oxycodone HCl (Roxicodone -) 5 mg PO Q6H PRN PRN Reason: PAIN LEVEL 7 - 10 Last Admin: 08/10/19 20:58 Dose: 5 mg REVIEW OF SYSTEMS CONSTITUTIONAL: Absent: fever, chills, diaphoresis, generalized weakness, malaise, loss of appetite, weight change HEENT: Absent: rhinorrhea, nasal congestion, throat pain, throat swelling, difficulty swallowing, mouth swelling, ear pain, eye pain, visual changes CARDIOVASCULAR: Absent: chest pain, peripheral edema RESPIRATORY: Absent: cough, shortness of breath, dyspnea with exertion, orthopnea, wheezing, stridor, hemoptysis GASTROINTESTINAL: Absent: abdominal pain, abdominal distension, nausea, vomiting, diarrhea, constipation, melena, hematochezia GENITOURINARY: Absent: dysuria, frequency, urgency, hesitancy, hematuria, flank pain, genital pain MUSCULOSKELETAL: Absent: joint swelling, neck pain SKIN: Absent: rash, itching, pallor HEMATOLOGIC/IMMUNOLOGIC: Absent: easy bleeding, easy bruising, lymphadenopathy, frequent infections ENDOCRINE: Absent: unexplained weight gain, unexplained weight loss, heat intolerance, cold intolerance NEUROLOGIC: Absent: headache, focal weakness or paresthesias, mental status changes, bladder or bowel incontinence PSYCHIATRIC: Absent: anxiety, depression, suicidal or homicidal ideation, hallucinations. PHYSICAL EXAMINATION Vital Signs Period Temp Pulse Resp BP Sys/Gutierres Pulse Ox Last 24 Hr 98.0 F-98.3 F 69-83 17-18 117-128/62-79 94-98 GENERAL: Awake, alert, and fully oriented HEAD: Normal with no signs of trauma. EYES: Pupils equal, round and reactive to light, extraocular movements intact, sclera anicteric, conjunctiva clear. No lid lag. EARS, NOSE, THROAT: Ears normal, nares patent, oropharynx clear without exudates. Moist mucous membranes. NECK: Normal range of motion, supple without lymphadenopathy, JVD, or masses. LUNGS: Breath sounds equal, clear to auscultation bilaterally. HEART: irregular 80s ABDOMEN: Soft, nontender, not distended, normoactive bowel sounds, no guarding, no rebound, no masses. No hepatomegaly or splenomegaly. MUSCULOSKELETAL: Normal range of motion at all joints. No bony deformities or tenderness. No CVA tenderness. UPPER EXTREMITIES: No peripheral edema. LOWER EXTREMITIES: No peripheral edema. NEUROLOGICAL: Awake, but somnolent, moves extremities grossly, sensory intact , gait limited PSYCHIATRIC: Cooperative. Good eye contact. Appropriate mood and affect. SKIN: Warm, dry, normal turgor, no rashes or lesions noted, normal capillary refill. CBCD WBC 6.4 K/mm3 (4.0-10.0) 08/11/19 05:55 RBC 3.51 M/mm3 (3.60-5.2) L 08/11/19 05:55 Hgb 11.2 GM/dL (10.7-15.3) 08/11/19 05:55 Hct 32.3 % (32.4-45.2) L 08/11/19 05:55 MCV 91.9 fl (80-96) 08/11/19 05:55 MCHC 34.6 g/dl (32.0-36.0) 08/11/19 05:55 RDW 13.6 % (11.6-15.6) 08/11/19 05:55 Plt Count 231 K/MM3 (134-434) 08/11/19 05:55 MPV 8.1 fl (7.5-11.1) 08/11/19 05:55 CMP Sodium 133 mmol/L (136-145) L 08/11/19 05:55 Potassium 3.7 mmol/L (3.5-5.1) 08/11/19 05:55 Chloride 98 mmol/L (98-107) 08/11/19 05:55 Carbon Dioxide 27 mmol/L (21-32) 08/11/19 05:55 Anion Gap 8 MMOL/L (8-16) 08/11/19 05:55 BUN 17.2 mg/dL (7-18) 08/11/19 05:55 Creatinine 0.9 mg/dL (0.55-1.3) 08/11/19 05:55 Random Glucose 111 mg/dL (74-106) H 08/11/19 05:55 Calcium 8.9 mg/dL (8.5-10.1) 08/11/19 05:55 Total Bilirubin 0.8 mg/dL (0.2-1) 08/11/19 05:55 AST 20 U/L (15-37) 08/11/19 05:55 ALT 16 U/L (13-61) 08/11/19 05:55 Alkaline Phosphatase 53 U/L (45-117) 08/11/19 05:55 Total Protein 6.6 g/dl (6.4-8.2) 08/11/19 05:55 Albumin 3.3 g/dl (3.4-5.0) L 08/11/19 05:55 CARDIAC ENZYMES Creatine Kinase 134 U/L (26-192) 08/10/19 11:30 Troponin I < 0.02 ng/ml (0.00-0.05) 08/10/19 17:30 ASSESSMENT/PLAN: Patient is an 84 year old Greenlandic speaking (but understands some Haitian) female with a significant past medical history of diabetes, hypertension, hyperlipidemia, CAD x/p PCI who presented to the ED on day of admission s/p fall secondary to tripping over a wet floor and fell onto her back onto concrete. She denies any LOC loss but complains of mild headache and severe lower back pain. She denies any dizziness per notes, chest pain or shortness of breath prior to fall. No fevers, no recent infections, no chills. No previous history of irregular heart rate and was to follow up at the end of this month for follow up with a new safety director. Patient reports frequent falls at home, a total of 3 falls since February 2019 without LOC loss, no incontinence post fall, no history of seizures. She reports intermittent dizziness but denies any dizziness with the fall she had today. Head CT completed, mild to moderate atrophy with no evidence of acute pathology. Cervical spine CT, indicates degenerative changes, no fracture. 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 Lumbar spine ct indicates multifocal degenerative changes with possible neuroforaminal compromise, no acute fracture. Carotid doppler completed, no evidence of artery stenosis. EKG indicates atrial fibrillation at 81 bpm, nonspecific T wave abnormalities. During my evaluation, she appeared fatigued and slightly confused. Will order MRI to ule out CVA She may benefit from physical therapy and short-term rehabilitation to help with her gait and ambulation which remains unsteady. We'll need evaluation regarding further assistive devices. Fall precautions recommended. Continue medical evaluation and monitoring of mental status. Maintain adequate hydration. Monitor blood pressure, maintain normotensive range. Monitor glucose, maintain euglycemic range.
--- NOTE | 2019-08-11 09:34 | CON.CARD ---
Consult Consult Specialty:: Cardiology Referred by:: Dr. Lakeshia Hardin Reason for Consultation:: fall - History of Present Illness Chief Complaint: Fall History of Present Illness: History obtained from chart and from [employer] product craftsman #[id number] Patient is an 84 year old female with a significant past medical history of diabetes, hypertension, hyperlipidemia, CAD x/p PCI who presented to the ED today s/p fall secondary to tripping over a wet floor and fell onto her back onto concrete. She denies any LOC loss but complains of mild headache and severe lower back pain. She denies any dizziness, chest pain or shortness of breath prior to fall. No fevers, no recent infections, no chills. No previous history of irregular heart rate and was to follow up at the end of this month for follow up with a new real estate clerk. Patient reports frequent falls at home, a total of 3 falls since February 2019 without LOC loss, no incontinence post fall, no history of seizures. She reports intermittent dizziness but denies any dizziness with the fall she had today. ER course was notable for: (1) thoracic spine ct w/o contrast, no evidence of acute fx. hemangioma t9, lumbar spine: degenerative changes, multifocal. cervical spine: degenerative changes c4-5 (2) atrial fibrillation at 81 bpm, nonspecific T wave abnormalities (3) head ct negative On my history with [employer]a product craftsman, she denies cp or SOB but complains only of dry mouth. - History Source History Provided By: Patient, Medical Record - Past Medical History Cardio/Vascular: Yes: CAD, HTN, Hyperlipdemia Endocrine: Yes: Diabetes Mellitus - Past Surgical History Past Surgical History: Yes: None - Alcohol/Substance Use Hx Alcohol Use: No History of Substance Use: reports: None - Smoking History Smoking history: Never smoked Have you smoked in the past 12 months: No - Social History ADL: Independent Occupation: housewife History of Recent Travel: No Home Medications - Allergies Allergies/Adverse Reactions: Allergies Allergy/AdvReac Type Severity Reaction Status Date / Time ibuprofen Allergy Severe Verified 08/10/19 10:48 - Home Medications Home Medications: Ambulatory Orders Atorvastatin Ca [Lipitor] 20 mg PO HS 09/22/15 Clopidogrel Bisulfate [Plavix -] 75 mg PO DAILY 09/22/15 metFORMIN HCL [Metformin ER Osmotic] 750 mg PO DAILY 09/22/15 Alendronate Sodium [Fosamax] 1 tab PO WEEKLY 06/14/19 Amlodipine Besylate [Norvasc -] 10 mg PO DAILY 06/14/19 Aspirin [ASA -] 81 mg PO DAILY 06/14/19 Hydrochlorothiazide [Hctz -] 25 mg PO DAILY 06/14/19 Losartan Potassium 100 mg PO DAILY 06/14/19 Metoprolol Succinate [Toprol XL -] 50 mg PO DAILY 06/14/19 Zolpidem Tartrate [Ambien] 10 mg PO HS 06/14/19 traZODone HCL [Trazodone HCl] 50 mg PO DAILY 06/14/19 Family Medical History Family History: Unremarkable Review of Systems Findings/Remarks: see HPI - Review of Systems Constitutional: reports: No Symptoms Cardiovascular: reports: No Symptoms Respiratory: reports: No Symptoms Gastrointestinal: reports: No Symptoms Genitourinary: reports: No Symptoms Breasts: reports: No Symptoms Reported Musculoskeletal: reports: No Symptoms Endocrine: reports: No Symptoms Hematology/Lymphatic: reports: No Symptoms Psychiatric: reports: No Symptoms - Risk Factors Known Risk Factors: Yes: Other (CAD, known) Vital Signs: Vital Signs Temperature 98.0 F 08/11/19 07:16 Pulse Rate 81 08/11/19 07:16 Respiratory Rate 17 08/11/19 07:16 Blood Pressure 128/68 08/11/19 07:16 O2 Sat by Pulse Oximetry (%) 94 L 08/11/19 07:16 Constitutional: Yes: No Distress, Calm Respiratory: Yes: CTA Bilaterally Gastrointestinal: Yes: Soft JVD: No Heart Sounds: Yes: S1, S2 (irreg) Edema: No Neurological: Yes: Alert - Other Data Labs, Other Data: CBC, BMP 08/11/19 05:55 08/11/19 05:55 Troponin, BNP 08/10/19 08/10/19 11:30 17:30 Troponin I < 0.02 < 0.02 Troponin, BNP 08/10/19 08/10/19 11:30 17:30 Troponin I < 0.02 < 0.02 Laboratory Tests 08/10/19 08/10/19 08/11/19 11:30 17:30 05:55 WBC 6.4 Hgb 11.2 Plt Count 231 Sodium Potassium Creatinine Troponin I < 0.02 < 0.02 Thyroxine (T4) 08/11/19 05:55 WBC Hgb Plt Count Sodium 133 L Potassium 3.7 Creatinine 0.9 Troponin I Thyroxine (T4) 12.8 Atrial fibrillation at 81 bpm, nonspecific T wave abnormalities diffusely change from prior EKG Echo: Pending Assessment/Plan Patient is an 84 year old female with a significant past medical history of diabetes, hypertension, hyperlipidemia, CAD x/p PCI who presented to the ED today s/p fall secondary to tripping over a wet floor and fell onto her back onto concrete. IMP: AF, ?new onset Fall, seems mechanical CAD s/p PCI DM HTN HLD REC: 1. Tele 2. Echo 3. Orthostatics 4. Treatment of possible UTI as per PMD. 5. Cont Lovenox for now, will need PT eval to assess gait and determine if gait is stable or pt is a falls risk for continued oral AC as outpatient. Given the history of recurrent falls, this will need to be carefully considered prior to dc. 6. Cont Toprol. 7. If ultimately started on oral AC, then will likely not need continued DAPT depending on timing of prior PCI which will need to be clarified. IF PCI > 1 year ago, then can maintain on single antiplatelet Rx
[2019-08-11] MEDS ORDERED: CLOPIDOGREL BISULFATE 75 MG TABLET (FP) PO SCH (10:00)
[2019-08-11] MEDS ORDERED: LOSARTAN POTASSIUM 50 MG TABLET (FP) ONE (10:30)
[2019-08-11] MEDS ORDERED: CEFTRIAXONE 1 GM/50 ML BAG ONE (10:30)
[2019-08-11] MEDS: LIDOCAINE 5% TOPICAL PATCH TP SCH (10:50)
[2019-08-11] MEDS: ASPIRIN 81 MG CHEWABLE TABLETS PO SCH (10:50)
[2019-08-11] MEDS: CEFTRIAXONE 1 GM in DEXTROSE 5%-WATER - 50 ML IVPB SCH (10:50)
[2019-08-11] MEDS: ENOXAPARIN NA (PORCINE) 60 MG/0.6 ML DISP.SYRIN SQ SCH ×2 (10:50→22:27)
[2019-08-11] MEDS: amLODIPine BESYLATE 10 MG TABLET (FP) PO SCH (10:50)
[2019-08-11] MEDS: LOSARTAN POTASSIUM 50 MG TABLET (FP) PO SCH (10:50)
[2019-08-11] MEDS: HYDROCHLOROTHIAZIDE 25 MG TABLET (FP) PO SCH (10:50)
--- NOTE | 2019-08-11 11:49 | ECHO ---
Name: BARBI COBB Exam:Adult Echocardiogram Study Date: 08/11/2019 09:42 AM Age: 84 yrs Height: 59 in Weight: 125 lb BSA: 1.5 m2 MMode/2D Measurements & Calculations IVSd: 0.88 cm Ao root diam: 2.6 cm LVIDd: 4.0 cm LA dimension: 3.8 cm LVIDs: 2.8 cm LVPWd: 1.1 cm LVPWs: 1.1 cm EDV(Teich): 68.2 ml ESV(Teich): 29.2 ml LVOT diam: 2.0 cm RV S Shashi: 11.6 cm/sec Doppler Measurements & Calculations MV E max shashi: 77.0 cm/sec Ao V2 max: 152.4 cm/sec MV A max shashi: 36.0 cm/sec Ao max P.4 mmHg MV E/A: 2.1 MV dec time: 0.20 sec LAKE(V,D): 1.9 cm2 LV V1 max P.6 mmHg MR max shashi: 482.6 cm/sec LV V1 max: 94.8 cm/sec MR max P.2 mmHg TR max shashi: 246.4 cm/sec PA V2 max: 116.1 cm/sec TR max P.3 mmHg PA max P.4 mmHg PI end-d shashi: 129.0 cm/sec Med Peak E' Shashi: 4.0 cm/sec Med E/e': 19.3 Lat Peak E' Shashi: 4.1 cm/sec Lat E/e': 18.8 Left Ventricle Left ventricular systolic function is normal. Ejection Fraction = 55-60%. Right Ventricle The right ventricle is normal in size and function. Atria The left atrium is mildly dilated. Mitral Valve The mitral valve is grossly normal. There is no mitral valve stenosis. There is mild mitral regurgita tion. Tricuspid Valve The tricuspid valve is normal in structure and function. There is mild to moderate tricuspid regurgit ation. Right ventricular systolic pressure is normal. Aortic Valve There is mild aortic sclerosis.;. No hemodynamically significant valvular aortic stenosis. No aortic regurgitation is present. Pulmonic Valve The pulmonic valve is not well seen, but is grossly normal. There is no pulmonic valvular stenosis. M ild pulmonic valvular regurgitation. Great Vessels The aortic root is normal size. Pericardium/Pleura There is no pericardial effusion. Interpretation Summary Left ventricular systolic function is normal. Ejection Fraction = 55-60%. The left atrium is mildly dilated. There is mild mitral regurgitation. There is mild to moderate tricuspid regurgitation. Right ventricular systolic pressure is normal. There is mild aortic sclerosis.; There is no pericardial effusion. MD Mckeon *Osmany 08/11/2019 11:48 AM
--- NOTE | 2019-08-11 13:21 | EKG ---
Test Reason : Blood Pressure : / mmHG Vent. Rate : 081 BPM Atrial Rate : 241 BPM P-R Int : 000 ms QRS Dur : 070 ms QT Int : 348 ms P-R-T Axes : 000 063 088 degrees QTc Int : 404 ms POOR DATA QUALITY, INTERPRETATION MAY BE ADVERSELY AFFECTED ATRIAL FIBRILLATION NONSPECIFIC ST AND T WAVE ABNORMALITY ABNORMAL ECG WHEN COMPARED WITH ECG OF 14-JUN-2019 10:56, NONSPECIFIC T WAVE ABNORMALITY NOW EVIDENT IN INFERIOR LEADS Confirmed by JONATHAN BUNN MD ([id number]) on 08/11/2019 1:20:45 PM Referred By: Confirmed By:JONATHAN BUNN MD
--- NOTE | 2019-08-11 16:33 | PN ---
Physical Exam: SUBJECTIVE: Patient seen and examined at the bedside. in no acute distress. eating dinner. just had mri lumbar spine done. reports her pain is better controlled. OBJECTIVE: Patient is an 84 year old female with a significant past medical history of diabetes, hypertension, hyperlipidemia, CAD x/p PCI who presented to the ED s/p fall secondary to tripping over a wet floor and fell onto her back onto concrete. She denies any LOC loss but complains of mild headache and severe lower back pain. She denies any dizziness, chest pain or shortness of breath prior to fall. No fevers, no recent infections, no chills. No previous history of irregular heart rate and was to follow up at the end of this month for follow up with a new care consultant. Patient reports frequent falls at home, a total of 3 falls since February 2019 without LOC loss, no incontinence post fall, no history of seizures. She reports intermittent dizziness but denies any dizziness with the fall she had on admission. Vital Signs Period Temp Pulse Resp BP Sys/Gutierres Pulse Ox Last 24 Hr 98.0 F-100.2 F 75-81 14-18 102-129/66-70 94-98 GENERAL: Awake, alert, and fully oriented - speaks primarily french HEAD: Normal with no signs of trauma. EYES: Pupils equal, round and reactive to light, extraocular movements intact, sclera anicteric, conjunctiva clear. No lid lag. EARS, NOSE, THROAT: Ears normal, nares patent, oropharynx clear without exudates. Moist mucous membranes. NECK: Normal range of motion, supple without lymphadenopathy, JVD, or masses. LUNGS: Breath sounds equal, clear to auscultation bilaterally. HEART: irregular 80s ABDOMEN: Soft, nontender, not distended, normoactive bowel sounds, no guarding, no rebound, no masses. No hepatomegaly or splenomegaly. MUSCULOSKELETAL: Normal range of motion at all joints. No bony deformities or tenderness. No CVA tenderness. UPPER EXTREMITIES: No peripheral edema. LOWER EXTREMITIES: No peripheral edema. NEUROLOGICAL: Normal speech. PSYCHIATRIC: Cooperative. Good eye contact. Appropriate mood and affect. SKIN: Warm, dry, normal turgor, no rashes or lesions noted, normal capillary refill. Laboratory Results - last 24 hr 08/10/19 08/10/19 08/11/19 17:30 22:30 05:55 WBC 6.4 RBC 3.51 L Hgb 11.2 Hct 32.3 L MCV 91.9 MCH 31.8 MCHC 34.6 RDW 13.6 Plt Count 231 MPV 8.1 Absolute Neuts (auto) 5.0 Neutrophils % 78.0 Lymphocytes % 15.1 Monocytes % 5.8 Eosinophils % 0.6 Basophils % 0.5 Nucleated RBC % 0 Sodium Potassium Chloride Carbon Dioxide Anion Gap BUN Creatinine Est GFR (CKD-EPI)AfAm Est GFR (CKD-EPI)NonAf POC Glucometer 163 Random Glucose Hemoglobin A1c % Calcium Magnesium Total Bilirubin AST ALT Alkaline Phosphatase Troponin I < 0.02 Total Protein Albumin Triglycerides Cholesterol Total LDL Cholesterol HDL Cholesterol TSH Thyroxine (T4) 08/11/19 08/11/19 08/11/19 05:55 05:55 07:58 WBC RBC Hgb Hct MCV MCH MCHC RDW Plt Count MPV Absolute Neuts (auto) Neutrophils % Lymphocytes % Monocytes % Eosinophils % Basophils % Nucleated RBC % Sodium 133 L Potassium 3.7 Chloride 98 Carbon Dioxide 27 Anion Gap 8 BUN 17.2 Creatinine 0.9 Est GFR (CKD-EPI)AfAm 68.05 Est GFR (CKD-EPI)NonAf 58.71 POC Glucometer 126 Random Glucose 111 H Hemoglobin A1c % 6.1 Calcium 8.9 Magnesium 1.8 Total Bilirubin 0.8 AST 20 ALT 16 Alkaline Phosphatase 53 Troponin I Total Protein 6.6 Albumin 3.3 L Triglycerides 79 Cholesterol 158 Total LDL Cholesterol 66 HDL Cholesterol 64 H TSH 0.41 Thyroxine (T4) 12.8 08/11/19 11:51 WBC RBC Hgb Hct MCV MCH MCHC RDW Plt Count MPV Absolute Neuts (auto) Neutrophils % Lymphocytes % Monocytes % Eosinophils % Basophils % Nucleated RBC % Sodium Potassium Chloride Carbon Dioxide Anion Gap BUN Creatinine Est GFR (CKD-EPI)AfAm Est GFR (CKD-EPI)NonAf POC Glucometer 171 Random Glucose Hemoglobin A1c % Calcium Magnesium Total Bilirubin AST ALT Alkaline Phosphatase Troponin I Total Protein Albumin Triglycerides Cholesterol Total LDL Cholesterol HDL Cholesterol TSH Thyroxine (T4) Active Medications Generic Name Dose Route Start Last Admin Trade Name Freq PRN Reason Stop Dose Admin Amlodipine Besylate 10 mg 08/11/19 10:00 08/11/19 10:50 Norvasc - PO 10 mg DAILY MYRIAM Administration Aspirin 81 mg 08/11/19 10:00 08/11/19 10:50 Asa - PO 81 mg DAILY MYRIAM Administration Atorvastatin Calcium 20 mg 08/10/19 22:00 08/10/19 23:19 Lipitor - PO 20 mg HS MYRIAM Administration Clopidogrel Bisulfate 75 mg 08/11/19 10:00 08/11/19 10:50 Plavix - PO 75 mg DAILY MYRIAM Administration Enoxaparin Sodium 60 mg 08/11/19 10:00 08/11/19 10:50 Lovenox - SQ 60 mg BID MYRIAM Administration Hydrochlorothiazide 25 mg 08/11/19 10:00 08/11/19 10:50 Hctz - PO 25 mg DAILY MYRIAM Administration Ceftriaxone Sodium 1 gm/ 50 mls @ 200 mls/hr 08/11/19 10:00 08/11/19 10:50 Dextrose IVPB 200 mls/hr DAILY MYRIAM Administration Protocol Insulin Aspart 1 vial 08/10/19 22:00 08/11/19 11:58 Novolog Vial Sliding Scale - SQ 2 unit ACHS MYRIAM Administration Protocol Lidocaine 1 patch 08/10/19 18:15 08/11/19 10:50 Lidoderm Patch - TP 1 patch DAILY MYRIAM Administration Losartan Potassium 100 mg 08/11/19 10:00 08/11/19 10:50 Cozaar - PO 100 mg DAILY MYRIAM Administration Melatonin 1 mg 08/11/19 22:00 Melatonin PO HS MYRIAM Metoprolol Succinate 50 mg 08/11/19 10:00 08/11/19 10:50 Toprol Xl - PO 50 mg DAILY MYRIAM Administration Miscellaneous 1 each 08/10/19 22:00 08/10/19 22:16 Lidoderm Patch Removal MC 1 each DAILY@2200 MYRIAM Administration Oxycodone HCl 5 mg 08/10/19 18:01 08/10/19 20:58 Roxicodone - PO 5 mg Q6H PRN Administration PAIN LEVEL 7 - 10 ASSESSMENT/PLAN: Problem List - Problems (1) Near syncope Assessment/Plan: mutiple falls at home of uncertain etiology some falls sound like mechanical falls but also reports intermittent dizziness noted to have new onset afib not on any anticoagulation head ct with mild/moderate atrophy troponins negative x 2 will need orthostatics, if not orthostatic, consider outpatient tilt table test ECHO 09/24/15 with normal LV size and function. No regional wall motion abnormalities, mild TR, mild pulmonic valvular regurg Hold medications that can cause dizziness, hold ambien Code(s): R55 - SYNCOPE AND COLLAPSE (2) Fall at home Assessment/Plan: for physical therapy eval Many falls at home, at least 3 in the last 5 months per no LOC loss Lidoderm patch and percocet per pain management start on physical therapy Code(s): W19.XXXA - UNSPECIFIED FALL, INITIAL ENCOUNTER; Y92.099 - UNSP PLACE IN OTH NON-INSTITUTIONAL RESIDENCE PLACE Qualifiers: Encounter type: initial encounter Qualified Code(s): W19.XXXA - Unspecified fall, initial encounter; Y92.009 - Unspecified place in unspecified non-institutional (private) residence as the place of occurrence of the external cause (3) Hypertension Assessment/Plan: continue home medications and may need adjustment going forward orthostatics to be ordered for falls Code(s): I10 - ESSENTIAL (PRIMARY) HYPERTENSION (4) Diabetes Assessment/Plan: novolg with monitoring of bgms Code(s): E11.9 - TYPE 2 DIABETES MELLITUS WITHOUT COMPLICATIONS (5) Atrial fibrillation Assessment/Plan: new onset not on any anticoagulation has not followed with her cardiolgist and has a follow up appointment per this month per her started on therapeutic lovenox, with caution for fall risk status Code(s): I48.91 - UNSPECIFIED ATRIAL FIBRILLATION (6) CAD (coronary artery disease) Assessment/Plan: Continue Plavix Continue Lipitor Code(s): I25.10 - ATHSCL HEART DISEASE OF [place] CORONARY ARTERY W/O ANG PCTRS (7) Back pain Assessment/Plan: s/p fall, for lumbar spine MRI pain management physical therapy Code(s): M54.9 - DORSALGIA, UNSPECIFIED Qualifiers: Back pain location: back pain in unspecified location Chronicity: acute Back pain laterality: midline Qualified Code(s): M54.9 - Dorsalgia, unspecified (8) Hyponatremia Assessment/Plan: monitor with daily labs Code(s): E87.1 - HYPO-OSMOLALITY AND HYPONATREMIA (9) UTI (urinary tract infection) Assessment/Plan: UA with + nitrate, bacteria 2371 start on ceftriaxone, urine culture pending Code(s): N39.0 - URINARY TRACT INFECTION, SITE NOT SPECIFIED Visit type - Emergency Visit Emergency Visit: Yes ED Registration Date: 08/10/19 Care time: The patient presented to the Emergency Department on the above date and was hospitalized for further evaluation of their emergent condition. - New Patient This patient is new to me today: No - Critical Care Critical Care patient: No - Discharge Referral Referred to [facility] No
[2019-08-11] MEDS ORDERED: INSULIN (NOVOLOG) ASPART 100 UNITS/ML 10ML VIAL ONE (22:06)
[2019-08-11] MEDS: MELATONIN 1 MG TABLET PO SCH (22:27)
[2019-08-11] MEDS: LIDOCAINE PATCH REMOVAL MC SCH (22:28)
[2019-08-11] MEDS: ATORVASTATIN CA 20 MG TABLET (FP) PO SCH (22:28)
--- NOTE | 2019-08-12 00:12 | HOSP ---
Subjective - Review of Symptoms Events since last encounter: 84 year old female with a significant past medical history of diabetes, hypertension, hyperlipidemia, CAD x/p PCI admitted for s/p fall secondary to tripping over a wet floor and fell onto her back onto concrete. Patient with frequent falls at home, a total of 3 falls since February 2019 without LOC loss, no incontinence post fall, no history of seizures. Patient has history of chronic back pain. - Radiology called with Lumbar MRI results: Mild acute L2 inferior endplate compression fx, a very small amount of acute epidural blood at posterior L2 vertebrae Physical Examination Vital Signs: Vital Signs Temperature 100.2 F H 08/11/19 14:43 Pulse Rate 75 08/11/19 14:43 Respiratory Rate 18 08/11/19 14:43 Blood Pressure 102/66 08/11/19 14:43 O2 Sat by Pulse Oximetry (%) 97 08/11/19 14:43 Constitutional: Yes: No Distress, Calm Eyes: Yes: Conjunctiva Clear, EOM Intact HENT: Yes: Atraumatic, Normocephalic Neck: Yes: Supple, Trachea Midline Cardiovascular: Yes: Regular Rate and Rhythm Respiratory: Yes: Regular, CTA Bilaterally Gastrointestinal: Yes: Normal Bowel Sounds, Soft Musculoskeletal: Yes: Back Pain Extremities: Yes: WNL Labs: CBC, BMP 08/11/19 05:55 08/11/19 05:55 Hospitalist Encounter Assessment: # Mild acute L2 inferior endplate compression fx - pain management - follow up ortho - PT consult - safety/fall precaution
[2019-08-12] MEDS: oxyCODONE HCL 5 MG TABLET PO PRN ×2 (00:45→16:52)
[2019-08-12] MEDS: INSULIN SLIDING SCALE (NOVOLOG) 1 VIAL SQ SCH ×4 (06:28→22:10)
[2019-08-12] MEDS ORDERED: DEXTROSE 5%-WATER - 50 ML IVPB ONE (09:48)
[2019-08-12] MEDS ORDERED: cefTRIAXone SODIUM 1 GM VIAL ONE (09:48)
--- NOTE | 2019-08-12 09:57 | PN ---
Progress Note (short form) - Note Progress Note: s: no cp sob palps dizzy, +back pain s/p fall Current Medications Generic Name Dose Route Start Last Admin Trade Name Hardikq PRN Reason Stop Dose Admin Amlodipine Besylate 10 mg 08/11/19 10:00 08/11/19 10:50 Norvasc - PO 10 mg DAILY MYRIAM Administration Aspirin 81 mg 08/11/19 10:00 08/11/19 10:50 Asa - PO 81 mg DAILY MYRIAM Administration Atorvastatin Calcium 20 mg 08/10/19 22:00 08/11/19 22:28 Lipitor - PO 20 mg HS MYRIAM Administration Enoxaparin Sodium 60 mg 08/11/19 10:00 08/11/19 22:27 Lovenox - SQ 60 mg BID MYRIAM Administration Hydrochlorothiazide 25 mg 08/11/19 10:00 08/11/19 10:50 Hctz - PO 25 mg DAILY MYRIAM Administration Ceftriaxone Sodium 1 gm/ 50 mls @ 200 mls/hr 08/11/19 10:00 08/11/19 10:50 Dextrose IVPB 200 mls/hr DAILY MYRIAM Administration Protocol Insulin Aspart 1 vial 08/10/19 22:00 08/12/19 06:28 Novolog Vial Sliding Scale - SQ Not Given ACHS MYRIAM Protocol Lidocaine 1 patch 08/10/19 18:15 08/11/19 10:50 Lidoderm Patch - TP 1 patch DAILY MYRIAM Administration Losartan Potassium 100 mg 08/11/19 10:00 08/11/19 10:50 Cozaar - PO 100 mg DAILY MYRIAM Administration Melatonin 1 mg 08/11/19 22:00 08/11/19 22:27 Melatonin PO 1 mg HS MYRIAM Administration Metoprolol Succinate 50 mg 08/11/19 10:00 08/11/19 10:50 Toprol Xl - PO 50 mg DAILY MYRIAM Administration Miscellaneous 1 each 08/10/19 22:00 08/11/19 22:28 Lidoderm Patch Removal MC 1 each DAILY@2200 MYRIAM Administration Oxycodone HCl 5 mg 08/10/19 18:01 08/12/19 00:45 Roxicodone - PO 5 mg Q6H PRN Administration PAIN LEVEL 7 - 10 Vital Signs Period Temp Pulse Resp BP Sys/Gutierres Pulse Ox Last 24 Hr 98.9 F-100.2 F 75-97 14-18 90-129/52-70 96-97 Constitutional: Yes: No Distress, Calm Respiratory: Yes: CTA Bilaterally Gastrointestinal: Yes: Soft JVD: No Heart Sounds: Yes: S1, S2 (irreg) Edema: No Neurological: Yes: Alert no jaundice diaphoresis - Other Data Labs, Other Data: CBC, BMP 08/11/19 05:55 08/11/19 05:55 Atrial fibrillation at 81 bpm, nonspecific T wave abnormalities diffusely change from prior EKG tele: af, rate ok Assessment/Plan Patient is an 84 year old female with a significant past medical history of diabetes, hypertension, hyperlipidemia, CAD x/p PCI who presented to the ED today s/p fall secondary to tripping over a wet floor and fell onto her back onto concrete. IMP: AF, ?new onset Fall, seems mechanical CAD s/p PCI DM HTN HLD REC: 1. Tele shows rate controlled afib 2. Echo here with nl lvef 3. Orthostatics 4. Treatment of possible UTI as per PMD. 5. Will need PT eval to assess gait and determine if gait is stable or pt is a falls risk for continued oral AC as outpatient. 6. Cont Toprol. 7. If ultimately started on oral AC, then will not need continued DAPT since her last pci was 2003. Would stop plavix when ac started.
[2019-08-12] MEDS: CEFTRIAXONE 1 GM in DEXTROSE 5%-WATER - 50 ML IVPB SCH (10:06)
--- NOTE | 2019-08-12 10:18 | PN ---
Physical Exam: SUBJECTIVE: Patient seen and examined at the bedside. in no acute distress. OBJECTIVE: Patient hypotensive today, stopped losartan, amlodopine and hctz 25 on toprol with parameters tele: afib 90s currently, overnight had afib 130s send d dimer stat for acute shortness of breath. ------ Patient is an 84 year old female with a significant past medical history of diabetes, hypertension, hyperlipidemia, CAD x/p PCI who presented to the ED s/p fall secondary to tripping over a wet floor and fell onto her back onto concrete. Patient reports frequent falls at home, a total of 3 falls since February 2019 without LOC loss, no incontinence post fall, no history of seizures. She reports intermittent dizziness but denies any dizziness with the fall she had on admission. She was found to have new onset afib. imaging: Lumbar MRI results: Mild acute L2 inferior endplate compression fx, a very small amount of acute epidural blood at posterior L2 vertebrae called dr. Vigil (neurosurgeon) regarding Lumbar spine MRI findings of acute epidural bleeding. per Dr Vigil, hold all anticoagulation, hold asa and plavix , lovenox. no treatment recommended for mild acute l2 inferior endplate comp fx. Vital Signs Period Temp Pulse Resp BP Sys/Gutierres Pulse Ox Last 24 Hr 98.9 F-100.2 F 75-97 14-18 90-129/52-70 96-97 GENERAL: Awake, alert, and fully oriented - speaks primarily slovak HEAD: Normal with no signs of trauma. EYES: Pupils equal, round and reactive to light, extraocular movements intact, sclera anicteric, conjunctiva clear. No lid lag. EARS, NOSE, THROAT: Ears normal, nares patent, oropharynx clear without exudates. Moist mucous membranes. NECK: Normal range of motion, supple without lymphadenopathy, JVD, or masses. LUNGS: lower lobes with fine crackles, left > right. on 2 liters of supplmental oxygen HEART: irregular 80s ABDOMEN: Soft, nontender, not distended, normoactive bowel sounds, no guarding, no rebound, no masses. No hepatomegaly or splenomegaly. MUSCULOSKELETAL: Normal range of motion at all joints. No bony deformities or tenderness. No CVA tenderness. UPPER EXTREMITIES: No peripheral edema. LOWER EXTREMITIES: No peripheral edema. NEUROLOGICAL: Normal speech. PSYCHIATRIC: Cooperative. Good eye contact. Appropriate mood and affect. SKIN: Warm, dry, normal turgor, no rashes or lesions noted, normal capillary refill. Laboratory Results - last 24 hr 08/11/19 08/11/19 08/12/19 11:51 22:26 06:24 POC Glucometer 171 167 132 Active Medications Generic Name Dose Route Start Last Admin Trade Name Freq PRN Reason Stop Dose Admin Aspirin 81 mg 08/11/19 10:00 08/11/19 10:50 Asa - PO 81 mg DAILY MYRIAM Administration Atorvastatin Calcium 20 mg 08/10/19 22:00 08/11/19 22:28 Lipitor - PO 20 mg HS MYRIAM Administration Ceftriaxone Sodium 1 gm/ 50 mls @ 200 mls/hr 08/11/19 10:00 08/12/19 10:06 Dextrose IVPB 200 mls/hr DAILY MYRIAM Administration Protocol Insulin Aspart 1 vial 08/10/19 22:00 08/12/19 06:28 Novolog Vial Sliding Scale - SQ Not Given ACHS MYRIAM Protocol Lidocaine 1 patch 08/10/19 18:15 08/11/19 10:50 Lidoderm Patch - TP 1 patch DAILY MYRIAM Administration Melatonin 1 mg 08/11/19 22:00 08/11/19 22:27 Melatonin PO 1 mg HS MYRIAM Administration Metoprolol Succinate 25 mg 08/12/19 10:08 Toprol Xl - PO DAILY MYRIAM Miscellaneous 1 each 08/10/19 22:00 08/11/19 22:28 Lidoderm Patch Removal MC 1 each DAILY@2200 MYRIAM Administration Oxycodone HCl 5 mg 08/10/19 18:01 08/12/19 00:45 Roxicodone - PO 5 mg Q6H PRN Administration PAIN LEVEL 7 - 10 ASSESSMENT/PLAN: Problem List - Problems (1) Back pain Assessment/Plan: multiple falls at home and lumbar spine mri ordered by neuro Findings on MRI shows mild acute l2 inferior endplate comp fx. and acute small epidural bleeding. Discussed findings with Musa (neurosurgeon). per Dr Vigil, hold all anticoagulation, hold asa and plavix, lovenox. no treatment recommended for l2 inf compression fracture, but recommended pain management Code(s): M54.9 - DORSALGIA, UNSPECIFIED Qualifiers: Back pain location: back pain in unspecified location Chronicity: acute Back pain laterality: midline Qualified Code(s): M54.9 - Dorsalgia, unspecified (2) Near syncope Assessment/Plan: mutiple falls at home of uncertain etiology some falls sound like mechanical falls but also reports intermittent dizziness noted to have new onset afib not on any anticoagulation head ct with mild/moderate atrophy troponins negative x 2 will need orthostatics, if not orthostatic, consider outpatient tilt table test Hold medications that can cause dizziness, hold ambien Code(s): R55 - SYNCOPE AND COLLAPSE (3) Fall at home Assessment/Plan: for physical therapy eval Many falls at home, at least 3 in the last 5 months per no LOC loss Lidoderm patch and percocet per pain management start on physical therapy Code(s): W19.XXXA - UNSPECIFIED FALL, INITIAL ENCOUNTER; Y92.099 - UNSP PLACE IN OTH NON-INSTITUTIONAL RESIDENCE PLACE Qualifiers: Encounter type: initial encounter Qualified Code(s): W19.XXXA - Unspecified fall, initial encounter; Y92.009 - Unspecified place in unspecified non-institutional (private) residence as the place of occurrence of the external cause (4) Hypertension Assessment/Plan: continue home medications and may need adjustment going forward orthostatics to be ordered for falls Code(s): I10 - ESSENTIAL (PRIMARY) HYPERTENSION (5) Diabetes Assessment/Plan: novolg with monitoring of bgms Code(s): E11.9 - TYPE 2 DIABETES MELLITUS WITHOUT COMPLICATIONS (6) Atrial fibrillation Assessment/Plan: new onset not on any anticoagulation has not followed with her cardiolgist and has a follow up appointment per this month per her started on therapeutic lovenox, but discontinued today after lumbar spine mri shows acute epidural bleed. hold asa, plavix, lovenox, no heparin per neurosurgery recommendations. Code(s): I48.91 - UNSPECIFIED ATRIAL FIBRILLATION (7) CAD (coronary artery disease) Assessment/Plan: Continue Lipitor Code(s): I25.10 - ATHSCL HEART DISEASE OF [place] CORONARY ARTERY W/O ANG PCTRS (8) Hyponatremia Assessment/Plan: monitor with daily labs Code(s): E87.1 - HYPO-OSMOLALITY AND HYPONATREMIA (9) UTI (urinary tract infection) Assessment/Plan: UA with + nitrate, bacteria 2371 start on ceftriaxone, urine culture pending Code(s): N39.0 - URINARY TRACT INFECTION, SITE NOT SPECIFIED (10) Shortness of breath Assessment/Plan: bilateral crackles ausculated, chest xray shows congestion lasix 20mg iv x 1 now maintain oxygen > 92% Code(s): R06.02 - SHORTNESS OF BREATH (11) Elevated d-dimer Assessment/Plan: elevated d dimer will send for chest CTA to rule out PE patient unable to be anticoagulated secondary to acute small epidural bleed may need a filter if + PE Pulmonary following Code(s): R79.89 - OTHER SPECIFIED ABNORMAL FINDINGS OF BLOOD CHEMISTRY Visit type - Emergency Visit Emergency Visit: Yes ED Registration Date: 08/10/19 Care time: The patient presented to the Emergency Department on the above date and was hospitalized for further evaluation of their emergent condition. - New Patient This patient is new to me today: No - Critical Care Critical Care patient: No - Discharge Referral Referred to [facility] No
--- NOTE | 2019-08-12 10:20 | PN ---
Progress Note (short form) - Note Progress Note: [facility] *LIVE* Neurology CHIEF COMPLAINT: falls at home, back pain HISTORY OF PRESENT ILLNESS: Patient is an 84 year old Divehi speaking (but understands some Spanish) female with a significant past medical history of diabetes, hypertension, hyperlipidemia, CAD x/p PCI who presented to the ED on day of admission s/p fall secondary to tripping over a wet floor and fell onto her back onto concrete. She denies any LOC loss but complains of mild headache and severe lower back pain. She denies any dizziness per notes, chest pain or shortness of breath prior to fall. No fevers, no recent infections, no chills. No previous history of irregular heart rate and was to follow up at the end of this month for follow up with a new director facilities maintenance. Patient reports frequent falls at home, a total of 3 falls since February 2019 without LOC loss, no incontinence post fall, no history of seizures. She reports intermittent dizziness but denies any dizziness with the fall she had today. Head CT completed, mild to moderate atrophy with no evidence of acute pathology. Cervical spine CT, indicates degenerative changes, no fracture. 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 Lumbar spine ct indicates multifocal degenerative changes with possible neuroforaminal compromise, no acute fracture. Carotid doppler completed, no evidence of artery stenosis. EKG indicates atrial fibrillation at 81 bpm, nonspecific T wave abnormalities. During my evaluation, she appeared fatigued and slightly confused. Will order MRI to rule out CVA. Brain MRI completed, no evidence of acute pathology. Lumbar Spine MRI completed, mild acute L2 inferior endplate compression fracture with small amount of acute epidural blood in pthe posterior of the L2 vertabrae, healed fracture of the L3 transverse process, small L1-L2 disc herniation. Echo completed, with no acute pathology. She may benefit from physical therapy and short-term rehabilitation to help with her gait and ambulation which remains unsteady. Discussed with hospitalist and recommended NSGY consult, hospitalist L[employer] DEVELOPMENT MANAGER reports discussing with Dr. Olevra who reportedly recommended no NSGY, hold antiplaltelet, pain control. at bedside and discussed with him. He was inquiring how long her stay would last which I indicated is still unclear. Allergies Allergy/AdvReac Type Severity Reaction Status Date / Time ibuprofen Allergy Severe Verified 08/10/19 10:48 Active Medications Aspirin (Asa -) 81 mg PO DAILY [facility] Last Admin: 08/11/19 10:50 Dose: 81 mg Atorvastatin Calcium (Lipitor -) 20 mg PO HS [facility] Last Admin: 08/11/19 22:28 Dose: 20 mg Ceftriaxone Sodium 1 gm/ (Dextrose) 50 mls @ 200 mls/hr IVPB DAILY [facility]; Protocol Last Admin: 08/12/19 10:06 Dose: 200 mls/hr Insulin Aspart (Novolog Vial Sliding Scale -) 1 vial SQ ACHS [facility]; Protocol Last Admin: 08/12/19 06:28 Dose: Not Given Lidocaine (Lidoderm Patch -) 1 patch TP DAILY [facility] Last Admin: 08/11/19 10:50 Dose: 1 patch Melatonin (Melatonin) 1 mg PO HS [facility] Last Admin: 08/11/19 22:27 Dose: 1 mg Metoprolol Succinate (Toprol Xl -) 25 mg PO DAILY [facility] Miscellaneous (Lidoderm Patch Removal) 1 each MC DAILY@2200 [facility] Last Admin: 08/11/19 22:28 Dose: 1 each Oxycodone HCl (Roxicodone -) 5 mg PO Q6H PRN PRN Reason: PAIN LEVEL 7 - 10 Last Admin: 08/12/19 00:45 Dose: 5 mg PHYSICAL EXAMINATION Vital Signs Period Temp Pulse Resp BP Sys/Gutierres Pulse Ox Last 24 Hr 98.9 F-100.2 F 75-97 14-18 90-129/52-70 96-97 GENERAL: Awake, alert, and fully oriented HEAD: Normal with no signs of trauma. EYES: Pupils equal, round and reactive to light, extraocular movements intact, sclera anicteric, conjunctiva clear. No lid lag. EARS, NOSE, THROAT: Ears normal, nares patent, oropharynx clear without exudates. Moist mucous membranes. NECK: Normal range of motion, supple without lymphadenopathy, JVD, or masses. LUNGS: Breath sounds equal, clear to auscultation bilaterally. HEART: irregular 80s ABDOMEN: Soft, nontender, not distended, normoactive bowel sounds, no guarding, no rebound, no masses. No hepatomegaly or splenomegaly. MUSCULOSKELETAL: Normal range of motion at all joints. No bony deformities or tenderness. No CVA tenderness. UPPER EXTREMITIES: No peripheral edema. LOWER EXTREMITIES: No peripheral edema. NEUROLOGICAL: Awake, but somnolent, moves extremities grossly, sensory intact , gait limited PSYCHIATRIC: Cooperative. Good eye contact. Appropriate mood and affect. SKIN: Warm, dry, normal turgor, no rashes or lesions noted, normal capillary refill. CBCD WBC 6.4 K/mm3 (4.0-10.0) 08/11/19 05:55 RBC 3.51 M/mm3 (3.60-5.2) L 08/11/19 05:55 Hgb 11.2 GM/dL (10.7-15.3) 08/11/19 05:55 Hct 32.3 % (32.4-45.2) L 08/11/19 05:55 MCV 91.9 fl (80-96) 08/11/19 05:55 MCHC 34.6 g/dl (32.0-36.0) 08/11/19 05:55 RDW 13.6 % (11.6-15.6) 08/11/19 05:55 Plt Count 231 K/MM3 (134-434) 08/11/19 05:55 MPV 8.1 fl (7.5-11.1) 08/11/19 05:55 CMP Sodium 133 mmol/L (136-145) L 08/11/19 05:55 Potassium 3.7 mmol/L (3.5-5.1) 08/11/19 05:55 Chloride 98 mmol/L (98-107) 08/11/19 05:55 Carbon Dioxide 27 mmol/L (21-32) 08/11/19 05:55 Anion Gap 8 MMOL/L (8-16) 08/11/19 05:55 BUN 17.2 mg/dL (7-18) 08/11/19 05:55 Creatinine 0.9 mg/dL (0.55-1.3) 08/11/19 05:55 Random Glucose 111 mg/dL (74-106) H 08/11/19 05:55 Calcium 8.9 mg/dL (8.5-10.1) 08/11/19 05:55 Total Bilirubin 0.8 mg/dL (0.2-1) 08/11/19 05:55 AST 20 U/L (15-37) 08/11/19 05:55 ALT 16 U/L (13-61) 08/11/19 05:55 Alkaline Phosphatase 53 U/L (45-117) 08/11/19 05:55 Total Protein 6.6 g/dl (6.4-8.2) 08/11/19 05:55 Albumin 3.3 g/dl (3.4-5.0) L 08/11/19 05:55 CARDIAC ENZYMES Creatine Kinase 134 U/L (26-192) 08/10/19 11:30 Troponin I < 0.02 ng/ml (0.00-0.05) 08/10/19 17:30 ASSESSMENT/PLAN: Patient is an 84 year old Divehi speaking (but understands some Spanish) female with a significant past medical history of diabetes, hypertension, hyperlipidemia, CAD x/p PCI who presented to the ED on day of admission s/p fall secondary to tripping over a wet floor and fell onto her back onto concrete. She denies any LOC loss but complains of mild headache and severe lower back pain. She denies any dizziness per notes, chest pain or shortness of breath prior to fall. No fevers, no recent infections, no chills. No previous history of irregular heart rate and was to follow up at the end of this month for follow up with a new director facilities maintenance. Patient reports frequent falls at home, a total of 3 falls since February 2019 without LOC loss, no incontinence post fall, no history of seizures. She reports intermittent dizziness but denies any dizziness with the fall she had today. Head CT completed, mild to moderate atrophy with no evidence of acute pathology. Cervical spine CT, indicates degenerative changes, no fracture. 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 Lumbar spine ct indicates multifocal degenerative changes with possible neuroforaminal compromise, no acute fracture. Carotid doppler completed, no evidence of artery stenosis. EKG indicates atrial fibrillation at 81 bpm, nonspecific T wave abnormalities. During my evaluation, she appeared fatigued and slightly confused. Will order MRI to rule out CVA. Brain MRI completed, no evidence of acute pathology. Lumbar Spine MRI completed, mild acute L2 inferior endplate compression fracture with small amount of acute epidural blood in pthe posterior of the L2 vertabrae, healed fracture of the L3 transverse process, small L1-L2 disc herniation. Echo completed, with no acute pathology. She may benefit from physical therapy and short-term rehabilitation to help with her gait and ambulation which remains unsteady. We'll need evaluation regarding further assistive devices. Discussed with hospitalist and recommended NSGY consult, hospitalist L[employer] DEVELOPMENT MANAGER reports discussing with Dr. Olvera who reportedly recommended no NSGY, hold antiplaltelet, pain control. at bedside and discussed with him. He was inquiring how long her stay would last which I indicated is still unclear. Fall precautions recommended. Continue medical evaluation and monitoring of mental status. Maintain adequate hydration. Monitor blood pressure, maintain normotensive range. Monitor glucose, maintain euglycemic range. Defer to NSGY regarding when to restart antiplatelet and risk/ benefit of surgical intervention. Continue to monitor closely.
[2019-08-12] MEDS: LIDOCAINE 5% TOPICAL PATCH TP SCH (10:25)
[2019-08-12] MEDS: ASPIRIN 81 MG CHEWABLE TABLETS PO SCH (10:25)
--- NOTE | 2019-08-12 11:30 | PN ---
Progress Note (short form) - Note Progress Note: PULMONARY CONSULTATION DICTATED 08/12/19 IMP HYPOXEMIA ? CHF AFIB ? PE ASHD S/P STENTS DM HLD HTN S/P FALL ? ASPIRATION PLAN O2 LASIX RATE CONTROL PER CARDIOLOGY D-DIMER,BNP CHEST CT DR LEW Problem List - Problems (1) Hypoxemia Code(s): R09.02 - HYPOXEMIA (2) Atrial fibrillation Code(s): I48.91 - UNSPECIFIED ATRIAL FIBRILLATION (3) Back pain Code(s): M54.9 - DORSALGIA, UNSPECIFIED Qualifiers: Back pain location: back pain in unspecified location Chronicity: acute Back pain laterality: midline Qualified Code(s): M54.9 - Dorsalgia, unspecified (4) CAD (coronary artery disease) Code(s): I25.10 - ATHSCL HEART DISEASE OF [place] CORONARY ARTERY W/O ANG PCTRS (5) Diabetes Code(s): E11.9 - TYPE 2 DIABETES MELLITUS WITHOUT COMPLICATIONS (6) Hypertension Code(s): I10 - ESSENTIAL (PRIMARY) HYPERTENSION (7) Dyspnea Code(s): R06.00 - DYSPNEA, UNSPECIFIED
--- NOTE | 2019-08-12 12:27 | CON.ORTH ---
Consult Consult Specialty:: Orthopedics Reason for Consultation:: Back pain s/p mechanical fall - History of Present Illness Chief Complaint: Back pain History of Present Illness: This is an 84 yo F with PMHx of diabetes, HTN, HLD and CAD who presented to ED s /p mechanical fall down stairs 2 days ago. She states she slipped on a wet floor and fell onto her back. She complains of back pain without any radiation. Patient states she has a history of chronic back pain. Denies any bowel or bladder symptoms. Denies any numbness, tingling to toes. - History Source History Provided By: Patient Limitations to Obtaining History: No Limitations - Past Medical History Cardio/Vascular: Yes: CAD, HTN, Hyperlipdemia ...: No Endocrine: Yes: Diabetes Mellitus - Past Surgical History Past Surgical History: Yes: None - Alcohol/Substance Use Hx Alcohol Use: No History of Substance Use: reports: None - Smoking History Smoking history: Never smoked Have you smoked in the past 12 months: No - Social History ADL: Independent Occupation: housewife History of Recent Travel: No Home Medications - Allergies Allergies/Adverse Reactions: Allergies Allergy/AdvReac Type Severity Reaction Status Date / Time ibuprofen Allergy Severe Verified 08/10/19 10:48 - Home Medications Home Medications: Ambulatory Orders Atorvastatin Ca [Lipitor] 20 mg PO HS 09/22/15 Clopidogrel Bisulfate [Plavix -] 75 mg PO DAILY 09/22/15 metFORMIN HCL [Metformin ER Osmotic] 750 mg PO DAILY 09/22/15 Alendronate Sodium [Fosamax] 1 tab PO WEEKLY 06/14/19 Amlodipine Besylate [Norvasc -] 10 mg PO DAILY 06/14/19 Aspirin [ASA -] 81 mg PO DAILY 06/14/19 Hydrochlorothiazide [Hctz -] 25 mg PO DAILY 06/14/19 Losartan Potassium 100 mg PO DAILY 06/14/19 Metoprolol Succinate [Toprol XL -] 50 mg PO DAILY 06/14/19 Zolpidem Tartrate [Ambien] 10 mg PO HS 06/14/19 traZODone HCL [Trazodone HCl] 50 mg PO DAILY 06/14/19 Review of Systems - Review of Systems Musculoskeletal: reports: Back Pain Physical Exam for Ortho Vital Signs: Vital Signs Temperature 99.4 F 08/12/19 09:00 Pulse Rate 90 08/12/19 09:00 Respiratory Rate 18 08/12/19 09:00 Blood Pressure 90/52 L 08/12/19 09:00 O2 Sat by Pulse Oximetry (%) 96 08/11/19 19:00 Labs: CBC, BMP 08/11/19 05:55 08/11/19 05:55 Imaging - Results MRI: Report Reviewed (MRI of lumbar spine shows mild acute L2 inferior endplate compression fx), Image Reviewed Problem List - Problems (1) Compression fracture of L2 Code(s): S32.020A - WEDGE COMPRESSION FRACTURE OF SECOND LUMBAR VERTEBRA, INIT Assessment/Plan 84 yo F with PMHx of diabetes, HTN, HLD and CAD who presented to ED s/p mechanical fall down stairs 2 days ago. -Case discussed with Dr. Lea -MRI of lumbar spine shows L2 compression fracture -No signs of nerve compression -Okay to WBAT -PT to assist in ambulation -Pain control -F/u as outpatient for possible bracing vs kyphoplasty if not improving -Reconsult as needed
--- NOTE | 2019-08-12 12:29 | CONS ---
PULMONARY CONSULTATION DATE OF CONSULTATION: 08/12/2019 REFERRING PHYSICIAN: BLANCA Barnes HISTORY: Patient is an 84-year-old Vietnamese female with past medical history of type 2 diabetes mellitus, hypertension, hyperlipidemia, ASHD status post stent in 2002 as well as 2003. Admitted to [facility] on August 10 secondary to mechanical fall after tripping on a wet floor and fell on her back onto concrete. She denied any loss of consciousness but complained of mild headache and severe lower back pain. Patient was admitted with the above. On admission, she denied any complaints of chest pain, shortness of breath, PND, or orthopnea. There was no history of COPD or asthma in the past. Hospitalization was significant for on August 11 she underwent a lumbar MRI, which revealed a very small amount of acute epidural blood in the posterior L3 vertebral body. Patient has been saturating well on room air. Today she was noted to be hypoxic with O2 saturations about 87 on room air. She also complained of mild shortness of breath. Chest x-ray performed showed mild increase in pulmonary vascular markings, and chest exam revealed bilateral crackles right side greater than left. The patient is a nonsmoker. There is no history of CHF or asthma in the past. There is no history of recent travel. Patient is also noted on current hospitalization to be in new onset atrial fibrillation , but she is evaluated by Cardiology. PAST MEDICAL HISTORY: Again includes type 2 diabetes mellitus, ASHD, status post stents x3, hypertension, hyperlipidemia. SOCIAL HISTORY: Born in [place]. Moved to the [place] years ago. No occupational exposures. REVIEW OF SYSTEMS: Positive mild dyspnea. No chest pain, no palpitations. Positive back pain. No fever, no chills, no hemoptysis, no lower extremity edema. CURRENT MEDICATIONS: Include Lidoderm, ceftriaxone, Toprol, Colace, Norvasc, melatonin, and Roxicodone. PHYSICAL EXAMINATION: General: Patient is an elderly female awake, alert in no acute distress. Vital Signs: She is afebrile. Temperature 99.4, blood pressure 90/52, respiratory rate 18, O2 saturation 95 on 2 L nasal cannula. HEENT: Normocephalic, atraumatic. Neck: Supple. Heart: Irregularly irregular with S1, S2. Chest: Bilateral crackles right greater than left. Abdomen: Soft. Bowel sounds are positive. Extremities: No cyanosis or edema. LABORATORIES: WBC is 6.4, hemoglobin 11.2, hematocrit 32.3 with a platelet count of 231,000. BUN 17, creatinine 0.9. Chest x-ray: Some mild increased markings bilaterally. IMPRESSION: 1. Dyspnea and hypoxemia ? mild congestive heart failure. 2. Cannot exclude pulmonary embolus. 3. Rule out possible aspiration. 4. Atrial fibrillation, new onset. 5. Arteriosclerotic heart disease status post stents. 6. Diabetes. 7. Hyperlipidemia. 8. Hypertension. 9. Status post mechanical fall. PLAN: Supplemental O2. Lasix. Rate control as per Cardiology. Obtain serum D-dimer and BNP. CT scan of the chest. CATHLEEN LEW M.D. THOR/[id number] MTDD
[2019-08-12] MEDS: LOSARTAN POTASSIUM 50 MG TABLET (FP) PO SCH (12:33)
[2019-08-12] MEDS: HYDROCHLOROTHIAZIDE 25 MG TABLET (FP) PO SCH (12:33)
[2019-08-12] MEDS: ENOXAPARIN NA (PORCINE) 60 MG/0.6 ML DISP.SYRIN SQ SCH (12:33)
[2019-08-12] MEDS: amLODIPine BESYLATE 10 MG TABLET (FP) PO SCH (12:34)
[2019-08-12] MEDS ORDERED: FUROSEMIDE 40 MG/4 ML INJECTABLE VIAL IVPUSH ONE (13:58)
[2019-08-12] MEDS ORDERED: metoPROLOL SUCCINATE 25 MG TAB.SR.24H (FP) PO ONE (17:15)
[2019-08-12] MEDS: DOCUSATE SODIUM 100 MG CAPSULE (FP) PO SCH (22:07)
[2019-08-12] MEDS: ATORVASTATIN CA 20 MG TABLET (FP) PO SCH (22:07)
[2019-08-12] MEDS: LIDOCAINE PATCH REMOVAL MC SCH (22:08)
[2019-08-12] MEDS: MELATONIN 1 MG TABLET PO SCH (22:08)
[2019-08-13] MEDS: INSULIN SLIDING SCALE (NOVOLOG) 1 VIAL SQ SCH ×4 (06:09→23:23)
[2019-08-13 06:40] LABS: EOS % 3.9 % (0-4.5); HEMATOCRIT 36.7 % (32.4-45.2); HEMOGLOBIN 12.6 GM/dL (10.7-15.3); LYMPH % 18.6 % (8-40); MCH 31.7 pg (25.7-33.7); MCHC 34.3 g/dl (32.0-36.0); MEAN CELL VOLUME 92.4 fl (80-96); MEAN PLT VOLUME 8.7 fl (7.5-11.1); MONO % 7.7 % (3.8-10.2); NEUT % 68.8 % (42.8-82.8); PLATELET COUNT 240 K/MM3 (134-434); RBC 3.97 M/mm3 (3.60-5.2); WHITE BLOOD COUNT 7.3 K/mm3 (4.0-10.0)
[2019-08-13 06:58] LABS: ALBUMIN 3.5 g/dl (3.4-5.0); BILIRUBIN,TOTAL 0.6 mg/dL (0.2-1); BLOOD UREA NITROGEN 31.2 mg/dL (7-18); CALCIUM 8.9 mg/dL (8.5-10.1); CREATININE 1.2 mg/dL (0.55-1.3); MAGNESIUM 2.3 mg/dL (1.8-2.4); POTASSIUM 3.9 mmol/L (3.5-5.1)
--- NOTE | 2019-08-13 10:29 | PN ---
Progress Note (short form) - Note Progress Note: [facility] *LIVE* Neurology CHIEF COMPLAINT: falls at home, back pain HISTORY OF PRESENT ILLNESS: Patient is an 84 year old Kinyarwanda speaking (but understands some Hebrew) female with a significant past medical history of diabetes, hypertension, hyperlipidemia, CAD x/p PCI who presented to the ED on day of admission s/p fall secondary to tripping over a wet floor and fell onto her back onto concrete. She denies any LOC loss but complains of mild headache and severe lower back pain. She denies any dizziness per notes, chest pain or shortness of breath prior to fall. No fevers, no recent infections, no chills. No previous history of irregular heart rate and was to follow up at the end of this month for follow up with a new manager of sales. Patient reports frequent falls at home, a total of 3 falls since February 2019 without LOC loss, no incontinence post fall, no history of seizures. She reports intermittent dizziness but denies any dizziness with the fall she had today. Head CT completed, mild to moderate atrophy with no evidence of acute pathology. Cervical spine CT, indicates degenerative changes, no fracture. 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 Lumbar spine ct indicates multifocal degenerative changes with possible neuroforaminal compromise, no acute fracture. Carotid doppler completed, no evidence of artery stenosis. EKG indicates atrial fibrillation at 81 bpm, nonspecific T wave abnormalities. During my evaluation, she appeared fatigued and slightly confused. Will order MRI to rule out CVA. Brain MRI completed, no evidence of acute pathology. Lumbar Spine MRI completed, mild acute L2 inferior endplate compression fracture with small amount of acute epidural blood in the posterior of the L2 vertabrae, healed fracture of the L3 transverse process, small L1-L2 disc herniation. Echo completed, with no acute pathology. She may benefit from physical therapy and short-term rehabilitation to help with her gait and ambulation which remains unsteady. Discussed with hospitalist and recommended NSGY consult, hospitalist CLINICAL DATA ASSOCIATE reports discussing with Dr. Olvera who reportedly recommended no NSGY, hold antiplaltelet, pain control. Patient without acute events overnight, orthopedics note reviewed and mentioned L2 compression fracture but outpatient follow-up and noacute intervention required. Allergies Allergy/AdvReac Type Severity Reaction Status Date / Time ibuprofen Allergy Severe Verified 08/10/19 10:48 Active Medications Atorvastatin Calcium (Lipitor -) 20 mg PO HS [facility] Last Admin: 08/12/19 22:07 Dose: 20 mg Docusate Sodium (Colace -) 100 mg PO BID [facility] Last Admin: 08/12/19 22:07 Dose: 100 mg Ceftriaxone Sodium 1 gm/ (Dextrose) 50 mls @ 200 mls/hr IVPB DAILY [facility]; Protocol Last Admin: 08/12/19 10:06 Dose: 200 mls/hr Insulin Aspart (Novolog Vial Sliding Scale -) 1 vial SQ ACHS [facility]; Protocol Last Admin: 08/13/19 06:09 Dose: Not Given Lidocaine (Lidoderm Patch -) 1 patch TP DAILY [facility] Last Admin: 08/12/19 10:25 Dose: 1 patch Melatonin (Melatonin) 1 mg PO HS [facility] Last Admin: 08/12/19 22:08 Dose: 1 mg Metoprolol Succinate (Toprol Xl -) 25 mg PO DAILY [facility] Miscellaneous (Lidoderm Patch Removal) 1 each MC DAILY@2200 [facility] Last Admin: 08/12/19 22:08 Dose: 1 each Oxycodone HCl (Roxicodone -) 5 mg PO Q6H PRN PRN Reason: PAIN LEVEL 7 - 10 Last Admin: 08/12/19 16:52 Dose: 5 mg PHYSICAL EXAMINATION Vital Signs Period Temp Pulse Resp BP Sys/Gutierres Pulse Ox Last 24 Hr 97.8 F-99.2 F 81-102 20-22 90-108/48-79 95 GENERAL: Awake, alert, and fully oriented HEAD: Normal with no signs of trauma. EYES: Pupils equal, round and reactive to light, extraocular movements intact, sclera anicteric, conjunctiva clear. No lid lag. EARS, NOSE, THROAT: Ears normal, nares patent, oropharynx clear without exudates. Moist mucous membranes. NECK: Normal range of motion, supple without lymphadenopathy, JVD, or masses. LUNGS: Breath sounds equal, clear to auscultation bilaterally. HEART: irregular 80s ABDOMEN: Soft, nontender, not distended, normoactive bowel sounds, no guarding, no rebound, no masses. No hepatomegaly or splenomegaly. MUSCULOSKELETAL: Normal range of motion at all joints. No bony deformities or tenderness. No CVA tenderness. UPPER EXTREMITIES: No peripheral edema. LOWER EXTREMITIES: No peripheral edema. NEUROLOGICAL: Awake, but somnolent, moves extremities grossly, sensory intact , gait limited PSYCHIATRIC: Cooperative. Good eye contact. Appropriate mood and affect. SKIN: Warm, dry, normal turgor, no rashes or lesions noted, normal capillary refill. CBCD WBC 7.3 K/mm3 (4.0-10.0) 08/13/19 05:40 RBC 3.97 M/mm3 (3.60-5.2) 08/13/19 05:40 Hgb 12.6 GM/dL (10.7-15.3) 08/13/19 05:40 Hct 36.7 % (32.4-45.2) 08/13/19 05:40 MCV 92.4 fl (80-96) 08/13/19 05:40 MCHC 34.3 g/dl (32.0-36.0) 08/13/19 05:40 RDW 14.0 % (11.6-15.6) 08/13/19 05:40 Plt Count 240 K/MM3 (134-434) 08/13/19 05:40 MPV 8.7 fl (7.5-11.1) 08/13/19 05:40 CMP Sodium 134 mmol/L (136-145) L 08/13/19 05:40 Potassium 3.9 mmol/L (3.5-5.1) 08/13/19 05:40 Chloride 98 mmol/L (98-107) 08/13/19 05:40 Carbon Dioxide 28 mmol/L (21-32) 08/13/19 05:40 Anion Gap 7 MMOL/L (8-16) L 08/13/19 05:40 BUN 31.2 mg/dL (7-18) H 08/13/19 05:40 Creatinine 1.2 mg/dL (0.55-1.3) 08/13/19 05:40 Random Glucose 120 mg/dL (74-106) H 08/13/19 05:40 Calcium 8.9 mg/dL (8.5-10.1) 08/13/19 05:40 Total Bilirubin 0.6 mg/dL (0.2-1) 08/13/19 05:40 AST 19 U/L (15-37) 08/13/19 05:40 ALT 14 U/L (13-61) 08/13/19 05:40 Alkaline Phosphatase 56 U/L (45-117) 08/13/19 05:40 Total Protein 7.0 g/dl (6.4-8.2) 08/13/19 05:40 Albumin 3.5 g/dl (3.4-5.0) 08/13/19 05:40 CARDIAC ENZYMES Creatine Kinase 134 U/L (26-192) 08/10/19 11:30 Troponin I < 0.02 ng/ml (0.00-0.05) 08/10/19 17:30 ASSESSMENT/PLAN: Patient is an 84 year old Kinyarwanda speaking (but understands some Hebrew) female with a significant past medical history of diabetes, hypertension, hyperlipidemia, CAD x/p PCI who presented to the ED on day of admission s/p fall secondary to tripping over a wet floor and fell onto her back onto concrete. She denies any LOC loss but complains of mild headache and severe lower back pain. She denies any dizziness per notes, chest pain or shortness of breath prior to fall. No fevers, no recent infections, no chills. No previous history of irregular heart rate and was to follow up at the end of this month for follow up with a new manager of sales. Patient reports frequent falls at home, a total of 3 falls since February 2019 without LOC loss, no incontinence post fall, no history of seizures. She reports intermittent dizziness but denies any dizziness with the fall she had today. Head CT completed, mild to moderate atrophy with no evidence of acute pathology. Cervical spine CT, indicates degenerative changes, no fracture. 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 Lumbar spine ct indicates multifocal degenerative changes with possible neuroforaminal compromise, no acute fracture. Carotid doppler completed, no evidence of artery stenosis. EKG indicates atrial fibrillation at 81 bpm, nonspecific T wave abnormalities. During my evaluation, she appeared fatigued and slightly confused. Will order MRI to rule out CVA. Brain MRI completed, no evidence of acute pathology. Lumbar Spine MRI completed, mild acute L2 inferior endplate compression fracture with small amount of acute epidural blood in pthe posterior of the L2 vertabrae, healed fracture of the L3 transverse process, small L1-L2 disc herniation. Echo completed, with no acute pathology. She may benefit from physical therapy and short-term rehabilitation to help with her gait and ambulation which remains unsteady. We'll need evaluation regarding further assistive devices. Discussed with hospitalist and recommended NSGY consult, hospitalist CLINICAL DATA ASSOCIATE reports discussing with Dr. Olvera who reportedly recommended no NSGY, hold antiplatelet, pain control. at bedside and discussed with him. He was inquiring how long her stay would last which I indicated is still unclear. Fall precautions recommended. Continue medical evaluation and monitoring of mental status. Maintain adequate hydration. Monitor blood pressure, maintain normotensive range. Monitor glucose, maintain euglycemic range. Defer to NSGY regarding when to restart antiplatelet and risk/ benefit of surgical intervention. Patient without acute events overnight, orthopedics note reviewed and mentioned L2 compression fracture but outpatient follow-up and noacute intervention required. Continue to monitor, consider repeat L spine MRI or CT in AM.
[2019-08-13] MEDS ORDERED: DEXTROSE 5%-WATER - 50 ML IVPB ONE (10:32)
[2019-08-13] MEDS ORDERED: cefTRIAXone SODIUM 1 GM VIAL ONE (10:32)
[2019-08-13] MEDS: LIDOCAINE 5% TOPICAL PATCH TP SCH (10:35)
[2019-08-13] MEDS: DOCUSATE SODIUM 100 MG CAPSULE (FP) PO SCH ×2 (10:35→23:18)
[2019-08-13] MEDS: metoPROLOL SUCCINATE 25 MG TAB.SR.24H (FP) PO SCH (10:35)
[2019-08-13] MEDS: CEFTRIAXONE 1 GM in DEXTROSE 5%-WATER - 50 ML IVPB SCH (10:35)
--- NOTE | 2019-08-13 10:37 | PN ---
Progress Note (short form) - Note Progress Note: s: no cp sob palps dizzy, +back pain s/p fall Current Medications Generic Name Dose Route Start Last Admin Trade Name Christie PRN Reason Stop Dose Admin Atorvastatin Calcium 20 mg 08/10/19 22:00 08/12/19 22:07 Lipitor - PO 20 mg HS MYRIAM Administration Docusate Sodium 100 mg 08/12/19 22:00 08/13/19 10:35 Colace - PO 100 mg BID MYRIAM Administration Ceftriaxone Sodium 1 gm/ 50 mls @ 200 mls/hr 08/11/19 10:00 08/13/19 10:35 Dextrose IVPB 200 mls/hr DAILY MYRIAM Administration Protocol Insulin Aspart 1 vial 08/10/19 22:00 08/13/19 06:09 Novolog Vial Sliding Scale - SQ Not Given ACHS MYRIAM Protocol Lidocaine 1 patch 08/10/19 18:15 08/13/19 10:35 Lidoderm Patch - TP 1 patch DAILY MYRIAM Administration Melatonin 1 mg 08/11/19 22:00 08/12/19 22:08 Melatonin PO 1 mg HS YMRIAM Administration Metoprolol Succinate 25 mg 08/12/19 10:08 08/13/19 10:35 Toprol Xl - PO 25 mg DAILY MYRIAM Administration Miscellaneous 1 each 08/10/19 22:00 08/12/19 22:08 Lidoderm Patch Removal MC 1 each DAILY@2200 MYRIAM Administration Oxycodone HCl 5 mg 08/10/19 18:01 08/12/19 16:52 Roxicodone - PO 5 mg Q6H PRN Administration PAIN LEVEL 7 - 10 Vital Signs Period Temp Pulse Resp BP Sys/Gutierres Pulse Ox Last 24 Hr 97.8 F-99.2 F 81-102 20-22 90-108/48-79 95 Constitutional: Yes: No Distress, Calm Respiratory: Yes: CTA Bilaterally Gastrointestinal: Yes: Soft JVD: No Heart Sounds: Yes: S1, S2 (irreg) Edema: No Neurological: Yes: Alert no jaundice diaphoresis - Other Data Labs, Other Data: CBC, BMP 08/13/19 05:40 08/13/19 05:40 Atrial fibrillation at 81 bpm, nonspecific T wave abnormalities diffusely change from prior EKG tele: af, rate ok Assessment/Plan Patient is an 84 year old female with a significant past medical history of diabetes, hypertension, hyperlipidemia, CAD x/p PCI 2002/2003 who presented to the ED today s/p fall secondary to tripping over a wet floor and fell onto her back onto concrete. IMP: AF, ?new onset Fall, seems mechanical CAD s/p PCI DM HTN HLD REC: 1. Tele shows rate controlled afib 2. Echo here with nl lvef 3. Orthostatics 4. Treatment of possible UTI as per PMD. 5. Will need PT eval to assess gait and determine if gait is stable or pt is a falls risk for continued oral AC as outpatient. 6. Cont Toprol. 7. Imaging shows compression fx of spine, surgery following. 7. If ultimately started on oral AC, then will not need continued DAPT since her last pci was 2003. Would stop plavix when ac started.
--- NOTE | 2019-08-13 11:00 | PN ---
Progress Note, Physician History of Present Illness: pulmonary alert,comfortable,sob improving - Current Medication List Current Medications: Active Medications Atorvastatin Calcium (Lipitor -) 20 mg PO HS [facility] Last Admin: 08/12/19 22:07 Dose: 20 mg Docusate Sodium (Colace -) 100 mg PO BID [facility] Last Admin: 08/13/19 10:35 Dose: 100 mg Ceftriaxone Sodium 1 gm/ (Dextrose) 50 mls @ 200 mls/hr IVPB DAILY [facility]; Protocol Last Admin: 08/13/19 10:35 Dose: 200 mls/hr Insulin Aspart (Novolog Vial Sliding Scale -) 1 vial SQ ACHS [facility]; Protocol Last Admin: 08/13/19 06:09 Dose: Not Given Lidocaine (Lidoderm Patch -) 1 patch TP DAILY [facility] Last Admin: 08/13/19 10:35 Dose: 1 patch Melatonin (Melatonin) 1 mg PO HS [facility] Last Admin: 08/12/19 22:08 Dose: 1 mg Metoprolol Succinate (Toprol Xl -) 25 mg PO DAILY [facility] Last Admin: 08/13/19 10:35 Dose: 25 mg Miscellaneous (Lidoderm Patch Removal) 1 each MC DAILY@2200 [facility] Last Admin: 08/12/19 22:08 Dose: 1 each Oxycodone HCl (Roxicodone -) 5 mg PO Q6H PRN PRN Reason: PAIN LEVEL 7 - 10 Last Admin: 08/12/19 16:52 Dose: 5 mg - Objective Vital Signs: Vital Signs Temperature 97.8 F 08/13/19 06:00 Pulse Rate 88 08/13/19 06:00 Respiratory Rate 20 08/13/19 06:00 Blood Pressure 102/79 08/13/19 06:00 O2 Sat by Pulse Oximetry (%) 95 08/12/19 21:00 Constitutional: Yes: Well Nourished, Calm Eyes: Yes: WNL HENT: Yes: WNL Neck: Yes: WNL Cardiovascular: Yes: Pulse Irregular, S1, S2 Respiratory: Yes: Rales (bibasilar crackles r>l) Gastrointestinal: Yes: Normal Bowel Sounds, Soft Extremities: Yes: WNL Edema: No Labs: CBC, BMP 08/13/19 05:40 08/13/19 05:40 Laboratory Tests 08/12/19 11:53 D-Dimer 1370 H - ....Imaging Cat Scan: Image Reviewed (BIBASILAR ATELECTASIS,-PE,BIBASILAR PLEURAL THICKENING ) Problem List - Problems (1) Hypoxemia Code(s): R09.02 - HYPOXEMIA (2) Atrial fibrillation Code(s): I48.91 - UNSPECIFIED ATRIAL FIBRILLATION (3) Back pain Code(s): M54.9 - DORSALGIA, UNSPECIFIED Qualifiers: Back pain location: back pain in unspecified location Chronicity: acute Back pain laterality: midline Qualified Code(s): M54.9 - Dorsalgia, unspecified (4) CAD (coronary artery disease) Code(s): I25.10 - ATHSCL HEART DISEASE OF [place] CORONARY ARTERY W/O ANG PCTRS (5) Diabetes Code(s): E11.9 - TYPE 2 DIABETES MELLITUS WITHOUT COMPLICATIONS (6) Hypertension Code(s): I10 - ESSENTIAL (PRIMARY) HYPERTENSION (7) Dyspnea Code(s): R06.00 - DYSPNEA, UNSPECIFIED Assessment/Plan IMP HYPOXEMIA IMPROVED ? CHF AFIB ASHD S/P STENTS DM HLD HTN S/P FALL ? ASPIRATION L2 COMPRESSION FX PLAN O2 LASIX RATE CONTROL PER CARDIOLOGY DR LEW Problem List - Problems (1) Hypoxemia Code(s): R09.02 - HYPOXEMIA (2) Atrial fibrillation Code(s): I48.91 - UNSPECIFIED ATRIAL FIBRILLATION (3) Back pain Code(s): M54.9 - DORSALGIA, UNSPECIFIED Qualifiers: Back pain location: back pain in unspecified location Chronicity: acute Back pain laterality: midline Qualified Code(s): M54.9 - Dorsalgia, unspecified (4) CAD (coronary artery disease) Code(s): I25.10 - ATHSCL HEART DISEASE OF [place] CORONARY ARTERY W/O ANG PCTRS (5) Diabetes Code(s): E11.9 - TYPE 2 DIABETES MELLITUS WITHOUT COMPLICATIONS (6) Hypertension Code(s): I10 - ESSENTIAL (PRIMARY) HYPERTENSION (7) Dyspnea Code(s): R06.00 - DYSPNEA, UNSPECIFIED
[2019-08-13] MEDS ORDERED: BISACODYL 10 MG SUPP.RECT RC ONE (12:45)
--- NOTE | 2019-08-13 12:47 | PN ---
Physical Exam: SUBJECTIVE: Patient seen and examined at the bedside. denies discomfort. reports constipation. OBJECTIVE: cta 08/12/2019 negative for PE ------ Patient is an 84 year old female with a significant past medical history of diabetes, hypertension, hyperlipidemia, CAD x/p PCI who presented to the ED s/p fall secondary to tripping over a wet floor and fell onto her back onto concrete. Patient reports frequent falls at home, a total of 3 falls since February 2019 without LOC loss, no incontinence post fall, no history of seizures. She reports intermittent dizziness but denies any dizziness with the fall she had on admission. She was found to have new onset afib. A lumbur MRI done 08/12/19 shows mild acute L2 inferior endplate compression fx, a very small amount of acute epidural blood at posterior L2 vertebrae. discussed with neurosurgery dr. Vigil regarding Lumbar spine MRI findings of acute epidural bleeding. per Dr Vigil, hold all anticoagulation, hold asa and plavix, lovenox. no treatment recommended for mild acute l2 inferior endplate comp fx. Vital Signs Period Temp Pulse Resp BP Sys/Gutierres Pulse Ox Last 24 Hr 97.5 F-99.2 F 81-132 18-22 90-108/48-79 95-96 GENERAL: Awake, alert, and fully oriented - speaks primarily sami HEAD: Normal with no signs of trauma. EYES: Pupils equal, round and reactive to light, extraocular movements intact, sclera anicteric, conjunctiva clear. No lid lag. EARS, NOSE, THROAT: Ears normal, nares patent, oropharynx clear without exudates. Moist mucous membranes. NECK: Normal range of motion, supple without lymphadenopathy, JVD, or masses. LUNGS: lower lobes with fine crackles, left > right. on 2 liters of supplmental oxygen, to be weaned off as tolerated HEART: irregular 80s-110s on monitor ABDOMEN: Soft, nontender, not distended, normoactive bowel sounds, no guarding, no rebound, no masses. No hepatomegaly or splenomegaly. MUSCULOSKELETAL: Normal range of motion at all joints. No bony deformities or tenderness. No CVA tenderness. UPPER EXTREMITIES: No peripheral edema. LOWER EXTREMITIES: No peripheral edema. NEUROLOGICAL: Normal speech. PSYCHIATRIC: Cooperative. Good eye contact. Appropriate mood and affect. SKIN: Warm, dry, normal turgor, no rashes or lesions noted, normal capillary refill. Laboratory Results - last 24 hr 08/12/19 08/12/19 08/12/19 11:53 11:53 16:25 WBC RBC Hgb Hct MCV MCH MCHC RDW Plt Count MPV Absolute Neuts (auto) Neutrophils % Lymphocytes % Monocytes % Eosinophils % Basophils % Nucleated RBC % D-Dimer 1370 H Sodium Potassium Chloride Carbon Dioxide Anion Gap BUN Creatinine Est GFR (CKD-EPI)AfAm Est GFR (CKD-EPI)NonAf POC Glucometer 139 Random Glucose Calcium Magnesium Total Bilirubin AST ALT Alkaline Phosphatase B-Natriuretic Peptide 2718.4 H Total Protein Albumin 08/12/19 08/13/19 08/13/19 22:09 05:35 05:40 WBC 7.3 RBC 3.97 Hgb 12.6 Hct 36.7 MCV 92.4 MCH 31.7 MCHC 34.3 RDW 14.0 Plt Count 240 MPV 8.7 Absolute Neuts (auto) 5.0 Neutrophils % 68.8 Lymphocytes % 18.6 D Monocytes % 7.7 Eosinophils % 3.9 D Basophils % 1.0 Nucleated RBC % 0 D-Dimer Sodium Potassium Chloride Carbon Dioxide Anion Gap BUN Creatinine Est GFR (CKD-EPI)AfAm Est GFR (CKD-EPI)NonAf POC Glucometer 146 132 Random Glucose Calcium Magnesium Total Bilirubin AST ALT Alkaline Phosphatase B-Natriuretic Peptide Total Protein Albumin 08/13/19 08/13/19 05:40 11:20 WBC RBC Hgb Hct MCV MCH MCHC RDW Plt Count MPV Absolute Neuts (auto) Neutrophils % Lymphocytes % Monocytes % Eosinophils % Basophils % Nucleated RBC % D-Dimer Sodium 134 L Potassium 3.9 Chloride 98 Carbon Dioxide 28 Anion Gap 7 L BUN 31.2 H Creatinine 1.2 Est GFR (CKD-EPI)AfAm 48.06 Est GFR (CKD-EPI)NonAf 41.47 POC Glucometer 153 Random Glucose 120 H Calcium 8.9 Magnesium 2.3 Total Bilirubin 0.6 AST 19 ALT 14 Alkaline Phosphatase 56 B-Natriuretic Peptide Total Protein 7.0 Albumin 3.5 Active Medications Generic Name Dose Route Start Last Admin Trade Name Freq PRN Reason Stop Dose Admin Atorvastatin Calcium 20 mg 08/10/19 22:00 08/12/19 22:07 Lipitor - PO 20 mg HS MYRIAM Administration Bisacodyl 10 mg 08/13/19 12:45 Dulcolax Suppository - [place] 08/13/19 12:46 ONCE ONE Docusate Sodium 100 mg 08/12/19 22:00 08/13/19 10:35 Colace - PO 100 mg BID MYRIAM Administration Ceftriaxone Sodium 1 gm/ 50 mls @ 200 mls/hr 08/11/19 10:00 08/13/19 10:35 Dextrose IVPB 200 mls/hr DAILY MYRIAM Administration Protocol Insulin Aspart 1 vial 08/10/19 22:00 08/13/19 11:37 Novolog Vial Sliding Scale - SQ 2 unit ACHS MYRIAM Administration Protocol Lidocaine 1 patch 08/10/19 18:15 08/13/19 10:35 Lidoderm Patch - TP 1 patch DAILY [facility]AM Administration Melatonin 1 mg 08/11/19 22:00 08/12/19 22:08 Melatonin PO 1 mg HS MYRIAM Administration Metoprolol Succinate 25 mg 08/12/19 10:08 08/13/19 10:35 Toprol Xl - PO 25 mg DAILY MY[facility]AM Administration Miscellaneous 1 each 08/10/19 22:00 08/12/19 22:08 Lidoderm Patch Removal MC 1 each DAILY@2200 MYRIAM Administration Oxycodone HCl 5 mg 08/10/19 18:01 08/12/19 16:52 Roxicodone - PO 5 mg Q6H PRN Administration PAIN LEVEL 7 - 10 ASSESSMENT/PLAN: Problem List - Problems (1) Back pain Assessment/Plan: multiple falls at home and lumbar spine mri ordered by neuro Findings on MRI shows mild acute l2 inferior endplate comp fx. and acute small epidural bleeding. Discussed findings with Musa (neurosurgeon). per Dr Vigil, hold all anticoagulation, hold asa and plavix, lovenox. no treatment recommended for l2 inf compression fracture, but recommended pain management Code(s): M54.9 - DORSALGIA, UNSPECIFIED Qualifiers: Back pain location: back pain in unspecified location Chronicity: acute Back pain laterality: midline Qualified Code(s): M54.9 - Dorsalgia, unspecified (2) Near syncope Assessment/Plan: mutiple falls at home of uncertain etiology some falls sound like mechanical falls but also reports intermittent dizziness noted to have new onset afib not on any anticoagulation head ct with mild/moderate atrophy troponins negative x 2 will need orthostatics, if not orthostatic, consider outpatient tilt table test Hold medications that can cause dizziness, hold ambien Code(s): R55 - SYNCOPE AND COLLAPSE (3) Fall at home Assessment/Plan: for physical therapy eval Many falls at home, at least 3 in the last 5 months per no LOC loss Lidoderm patch and percocet per pain management start on physical therapy Code(s): W19.XXXA - UNSPECIFIED FALL, INITIAL ENCOUNTER; Y92.099 - UNSP PLACE IN OTH NON-INSTITUTIONAL RESIDENCE PLACE Qualifiers: Encounter type: initial encounter Qualified Code(s): W19.XXXA - Unspecified fall, initial encounter; Y92.009 - Unspecified place in unspecified non-institutional (private) residence as the place of occurrence of the external cause (4) Hypertension Assessment/Plan: continue home medications and may need adjustment going forward orthostatics to be ordered for falls Code(s): I10 - ESSENTIAL (PRIMARY) HYPERTENSION (5) Diabetes Assessment/Plan: novolg with monitoring of bgms Code(s): E11.9 - TYPE 2 DIABETES MELLITUS WITHOUT COMPLICATIONS (6) Atrial fibrillation Assessment/Plan: new onset not on any anticoagulation has not followed with her cardiolgist and has a follow up appointment per this month per her started on therapeutic lovenox, but discontinued after lumbar spine mri shows acute epidural bleed. hold asa, plavix, lovenox, no heparin per neurosurgery recommendations. Code(s): I48.91 - UNSPECIFIED ATRIAL FIBRILLATION (7) CAD (coronary artery disease) Assessment/Plan: Continue Lipitor Code(s): I25.10 - ATHSCL HEART DISEASE OF [place] CORONARY ARTERY W/O ANG PCTRS (8) Hyponatremia Assessment/Plan: monitor with daily labs Code(s): E87.1 - HYPO-OSMOLALITY AND HYPONATREMIA (9) UTI (urinary tract infection) Assessment/Plan: UA with + nitrate, bacteria 2371 start on ceftriaxone, urine culture pending Code(s): N39.0 - URINARY TRACT INFECTION, SITE NOT SPECIFIED (10) Shortness of breath Assessment/Plan: bilateral crackles ausculated, chest xray shows congestion, maintain oxygen > 92% on supplemental oxygen Code(s): R06.02 - SHORTNESS OF BREATH (11) Elevated d-dimer Assessment/Plan: elevated d dimer cta negative Code(s): R79.89 - OTHER SPECIFIED ABNORMAL FINDINGS OF BLOOD CHEMISTRY Visit type - Emergency Visit Emergency Visit: Yes ED Registration Date: 08/10/19 Care time: The patient presented to the Emergency Department on the above date and was hospitalized for further evaluation of their emergent condition. - New Patient This patient is new to me today: No - Critical Care Critical Care patient: No - Discharge Referral Referred to [facility] No
[2019-08-13] MEDS: POLYETHYLENE GLYCOL 3350 119 GM BTL PO SCH (15:12)
[2019-08-13] MEDS: oxyCODONE HCL 5 MG TABLET PO PRN (15:27)
[2019-08-13] MEDS ORDERED: INSULIN (NOVOLOG) ASPART 100 UNITS/ML 10ML VIAL ONE (21:32)
[2019-08-13] MEDS: ATORVASTATIN CA 20 MG TABLET (FP) PO SCH (23:18)
[2019-08-13] MEDS: LIDOCAINE PATCH REMOVAL MC SCH (23:18)
[2019-08-13] MEDS: MELATONIN 1 MG TABLET PO SCH (23:20)
[2019-08-14] MEDS: INSULIN SLIDING SCALE (NOVOLOG) 1 VIAL SQ SCH ×4 (06:29→23:29)
[2019-08-14 06:56] LABS: BASO % 0.6 % (0-2.0); HEMATOCRIT 35.5 % (32.4-45.2); HEMOGLOBIN 12.2 GM/dL (10.7-15.3); LYMPH % 17.7 % (8-40); MCH 31.7 pg (25.7-33.7); MCHC 34.3 g/dl (32.0-36.0); MEAN CELL VOLUME 92.3 fl (80-96); MEAN PLT VOLUME 8.5 fl (7.5-11.1); MONO % 7.3 % (3.8-10.2); NEUT % 71.4 % (42.8-82.8); PLATELET COUNT 248 K/MM3 (134-434); RBC 3.85 M/mm3 (3.60-5.2); RDW 14.1 % (11.6-15.6); WHITE BLOOD COUNT 7.3 K/mm3 (4.0-10.0)
[2019-08-14 07:19] LABS: ALBUMIN 3.2 g/dl (3.4-5.0); BILIRUBIN,TOTAL 0.4 mg/dL (0.2-1); BLOOD UREA NITROGEN 30.4 mg/dL (7-18); CALCIUM 8.7 mg/dL (8.5-10.1); MAGNESIUM 2.4 mg/dL (1.8-2.4); POTASSIUM 4.3 mmol/L (3.5-5.1); TOT PROT 6.5 g/dl (6.4-8.2)
[2019-08-14] MEDS ORDERED: DEXTROSE 5%-WATER - 50 ML IVPB ONE (08:42)
[2019-08-14] MEDS ORDERED: cefTRIAXone SODIUM 1 GM VIAL ONE (08:42)
[2019-08-14] MEDS: metoPROLOL SUCCINATE 25 MG TAB.SR.24H (FP) PO SCH (09:21)
[2019-08-14] MEDS: CEFTRIAXONE 1 GM in DEXTROSE 5%-WATER - 50 ML IVPB SCH (09:22)
[2019-08-14] MEDS: LIDOCAINE 5% TOPICAL PATCH TP SCH (09:22)
[2019-08-14] MEDS: DOCUSATE SODIUM 100 MG CAPSULE (FP) PO SCH ×2 (09:22→23:28)
[2019-08-14] MEDS: POLYETHYLENE GLYCOL 3350 119 GM BTL PO SCH (09:23)
--- NOTE | 2019-08-14 09:32 | PN ---
Progress Note (short form) - Note Progress Note: [facility] *LIVE* Neurology CHIEF COMPLAINT: falls at home, back pain HISTORY OF PRESENT ILLNESS: Patient is an 84 year old Hebrew speaking (but understands some Thai) female with a significant past medical history of diabetes, hypertension, hyperlipidemia, CAD x/p PCI who presented to the ED on day of admission s/p fall secondary to tripping over a wet floor and fell onto her back onto concrete. She denies any LOC loss but complains of mild headache and severe lower back pain. She denies any dizziness per notes, chest pain or shortness of breath prior to fall. No fevers, no recent infections, no chills. No previous history of irregular heart rate and was to follow up at the end of this month for follow up with a new clinical nurse manager. Patient reports frequent falls at home, a total of 3 falls since February 2019 without LOC loss, no incontinence post fall, no history of seizures. She reports intermittent dizziness but denies any dizziness with the fall she had today. Head CT completed, mild to moderate atrophy with no evidence of acute pathology. Cervical spine CT, indicates degenerative changes, no fracture. 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 Lumbar spine ct indicates multifocal degenerative changes with possible neuroforaminal compromise, no acute fracture. Carotid doppler completed, no evidence of artery stenosis. EKG indicates atrial fibrillation at 81 bpm, nonspecific T wave abnormalities. During my evaluation, she appeared fatigued and slightly confused. Will order MRI to rule out CVA. Brain MRI completed, no evidence of acute pathology. Lumbar Spine MRI completed, mild acute L2 inferior endplate compression fracture with small amount of acute epidural blood in the posterior of the L2 vertabrae, healed fracture of the L3 transverse process, small L1-L2 disc herniation. Echo completed, with no acute pathology. She may benefit from physical therapy and short-term rehabilitation to help with her gait and ambulation which remains unsteady. Discussed with hospitalist and recommended NSGY consult, hospitalist RESOURCE MANAGEMENT SPECIALIST reports discussing with Dr. Olvera who reportedly recommended no NSGY, hold antiplaltelet, pain control. Patient without acute events overnight, orthopedics note reviewed and mentioned L2 compression fracture but outpatient follow-up and noacute intervention required. Consider repeat imaging to evaluate blood products, CT or MRI will defer to radiology. Discussd with hospitalist. Allergies Allergy/AdvReac Type Severity Reaction Status Date / Time ibuprofen Allergy Severe Verified 08/10/19 10:48 Active Medications Atorvastatin Calcium (Lipitor -) 20 mg PO HS [facility] Last Admin: 08/12/19 22:07 Dose: 20 mg Docusate Sodium (Colace -) 100 mg PO BID [facility] Last Admin: 08/12/19 22:07 Dose: 100 mg Ceftriaxone Sodium 1 gm/ (Dextrose) 50 mls @ 200 mls/hr IVPB DAILY [facility]; Protocol Last Admin: 08/12/19 10:06 Dose: 200 mls/hr Insulin Aspart (Novolog Vial Sliding Scale -) 1 vial SQ ACHS [facility]; Protocol Last Admin: 08/13/19 06:09 Dose: Not Given Lidocaine (Lidoderm Patch -) 1 patch TP DAILY [facility] Last Admin: 08/12/19 10:25 Dose: 1 patch Melatonin (Melatonin) 1 mg PO HS [facility] Last Admin: 08/12/19 22:08 Dose: 1 mg Metoprolol Succinate (Toprol Xl -) 25 mg PO DAILY [facility] Miscellaneous (Lidoderm Patch Removal) 1 each MC DAILY@2200 [facility] Last Admin: 08/12/19 22:08 Dose: 1 each Oxycodone HCl (Roxicodone -) 5 mg PO Q6H PRN PRN Reason: PAIN LEVEL 7 - 10 Last Admin: 08/12/19 16:52 Dose: 5 mg PHYSICAL EXAMINATION Vital Signs Period Temp Pulse Resp BP Sys/Gutierres Pulse Ox Last 24 Hr 97.8 F-99.2 F 81-102 20-22 90-108/48-79 95 GENERAL: Awake, alert, and fully oriented HEAD: Normal with no signs of trauma. EYES: Pupils equal, round and reactive to light, extraocular movements intact, sclera anicteric, conjunctiva clear. No lid lag. EARS, NOSE, THROAT: Ears normal, nares patent, oropharynx clear without exudates. Moist mucous membranes. NECK: Normal range of motion, supple without lymphadenopathy, JVD, or masses. LUNGS: Breath sounds equal, clear to auscultation bilaterally. HEART: irregular 80s ABDOMEN: Soft, nontender, not distended, normoactive bowel sounds, no guarding, no rebound, no masses. No hepatomegaly or splenomegaly. MUSCULOSKELETAL: Normal range of motion at all joints. No bony deformities or tenderness. No CVA tenderness. UPPER EXTREMITIES: No peripheral edema. LOWER EXTREMITIES: No peripheral edema. NEUROLOGICAL: Awake, but somnolent, moves extremities grossly, sensory intact , gait limited PSYCHIATRIC: Cooperative. Good eye contact. Appropriate mood and affect. SKIN: Warm, dry, normal turgor, no rashes or lesions noted, normal capillary refill. CBCD WBC 7.3 K/mm3 (4.0-10.0) 08/13/19 05:40 RBC 3.97 M/mm3 (3.60-5.2) 08/13/19 05:40 Hgb 12.6 GM/dL (10.7-15.3) 08/13/19 05:40 Hct 36.7 % (32.4-45.2) 08/13/19 05:40 MCV 92.4 fl (80-96) 08/13/19 05:40 MCHC 34.3 g/dl (32.0-36.0) 08/13/19 05:40 RDW 14.0 % (11.6-15.6) 08/13/19 05:40 Plt Count 240 K/MM3 (134-434) 08/13/19 05:40 MPV 8.7 fl (7.5-11.1) 08/13/19 05:40 CMP Sodium 134 mmol/L (136-145) L 08/13/19 05:40 Potassium 3.9 mmol/L (3.5-5.1) 08/13/19 05:40 Chloride 98 mmol/L (98-107) 08/13/19 05:40 Carbon Dioxide 28 mmol/L (21-32) 08/13/19 05:40 Anion Gap 7 MMOL/L (8-16) L 08/13/19 05:40 BUN 31.2 mg/dL (7-18) H 08/13/19 05:40 Creatinine 1.2 mg/dL (0.55-1.3) 08/13/19 05:40 Random Glucose 120 mg/dL (74-106) H 08/13/19 05:40 Calcium 8.9 mg/dL (8.5-10.1) 08/13/19 05:40 Total Bilirubin 0.6 mg/dL (0.2-1) 08/13/19 05:40 AST 19 U/L (15-37) 08/13/19 05:40 ALT 14 U/L (13-61) 08/13/19 05:40 Alkaline Phosphatase 56 U/L (45-117) 08/13/19 05:40 Total Protein 7.0 g/dl (6.4-8.2) 08/13/19 05:40 Albumin 3.5 g/dl (3.4-5.0) 08/13/19 05:40 CARDIAC ENZYMES Creatine Kinase 134 U/L (26-192) 08/10/19 11:30 Troponin I < 0.02 ng/ml (0.00-0.05) 08/10/19 17:30 ASSESSMENT/PLAN: Patient is an 84 year old Hebrew speaking (but understands some Thai) female with a significant past medical history of diabetes, hypertension, hyperlipidemia, CAD x/p PCI who presented to the ED on day of admission s/p fall secondary to tripping over a wet floor and fell onto her back onto concrete. She denies any LOC loss but complains of mild headache and severe lower back pain. She denies any dizziness per notes, chest pain or shortness of breath prior to fall. No fevers, no recent infections, no chills. No previous history of irregular heart rate and was to follow up at the end of this month for follow up with a new clinical nurse manager. Patient reports frequent falls at home, a total of 3 falls since February 2019 without LOC loss, no incontinence post fall, no history of seizures. She reports intermittent dizziness but denies any dizziness with the fall she had today. Head CT completed, mild to moderate atrophy with no evidence of acute pathology. Cervical spine CT, indicates degenerative changes, no fracture. 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 Lumbar spine ct indicates multifocal degenerative changes with possible neuroforaminal compromise, no acute fracture. Carotid doppler completed, no evidence of artery stenosis. EKG indicates atrial fibrillation at 81 bpm, nonspecific T wave abnormalities. During my evaluation, she appeared fatigued and slightly confused. Will order MRI to rule out CVA. Brain MRI completed, no evidence of acute pathology. Lumbar Spine MRI completed, mild acute L2 inferior endplate compression fracture with small amount of acute epidural blood in pthe posterior of the L2 vertabrae, healed fracture of the L3 transverse process, small L1-L2 disc herniation. Echo completed, with no acute pathology. She may benefit from physical therapy and short-term rehabilitation to help with her gait and ambulation which remains unsteady. We'll need evaluation regarding further assistive devices. Discussed with hospitalist and recommended NSGY consult, hospitalist RESOURCE MANAGEMENT SPECIALIST reports discussing with Dr. Olvera who reportedly recommended no NSGY, hold antiplatelet, pain control. at bedside and discussed with him. He was inquiring how long her stay would last which I indicated is still unclear. Fall precautions recommended. Continue medical evaluation and monitoring of mental status. Maintain adequate hydration. Monitor blood pressure, maintain normotensive range. Monitor glucose, maintain euglycemic range. Defer to NSGY regarding when to restart antiplatelet and risk/ benefit of surgical intervention. Patient without acute events overnight, orthopedics note reviewed and mentioned L2 compression fracture but outpatient follow-up and noacute intervention required. Consider repeat imaging to evaluate blood products, CT or MRI will defer to radiology. Discussd with hospitalist. Consider restarting antiplatlet meds with bleeding resolved.
--- NOTE | 2019-08-14 10:21 | PN ---
Progress Note, Physician Chief Complaint: fall History of Present Illness: confirms 3 falls in past 2 yrs. this time he thinks slipped on wet part of floor. other times he says she felt balance was poor/dizzy, but never passed out pt denying cp, sob, palpitations, presyncope - Current Medication List Current Medications: Active Medications Atorvastatin Calcium (Lipitor -) 20 mg PO HS [facility] Last Admin: 08/13/19 23:18 Dose: 20 mg Docusate Sodium (Colace -) 100 mg PO BID [facility] Last Admin: 08/14/19 09:22 Dose: 100 mg Ceftriaxone Sodium 1 gm/ (Dextrose) 50 mls @ 200 mls/hr IVPB DAILY [facility]; Protocol Last Admin: 08/14/19 09:22 Dose: 200 mls/hr Insulin Aspart (Novolog Vial Sliding Scale -) 1 vial SQ ACHS [facility]; Protocol Last Admin: 08/14/19 06:29 Dose: Not Given Lidocaine (Lidoderm Patch -) 1 patch TP DAILY [facility] Last Admin: 08/14/19 09:22 Dose: 1 patch Melatonin (Melatonin) 1 mg PO [facility] Last Admin: 08/13/19 23:20 Dose: 1 mg Metoprolol Succinate (Toprol Xl -) 25 mg PO DAILY [facility] Last Admin: 08/14/19 09:21 Dose: 25 mg Miscellaneous (Lidoderm Patch Removal) 1 each MC DAILY@2200 [facility] Last Admin: 08/13/19 23:18 Dose: 1 each Oxycodone HCl (Roxicodone -) 5 mg PO Q6H PRN PRN Reason: PAIN LEVEL 7 - 10 Last Admin: 08/13/19 15:27 Dose: 5 mg Polyethylene Glycol (Miralax (For Daily Use) -) 17 gm PO DAILY [facility] Last Admin: 08/14/19 09:23 Dose: Not Given - Objective Vital Signs: Vital Signs Temperature 98.9 F 08/14/19 06:00 Pulse Rate 92 H 08/14/19 06:00 Respiratory Rate 20 08/14/19 06:00 Blood Pressure 128/55 L 08/14/19 06:00 O2 Sat by Pulse Oximetry (%) 96 08/13/19 21:00 Constitutional: Yes: Well Nourished, No Distress, Calm Cardiovascular: Yes: Pulse Irregular, S1, S2. No: Gallop, Murmur Respiratory: Yes: Regular, CTA Bilaterally (anteriorly (back pain)). No: Accessory Muscle Use, Rales, Wheezes Extremities: No: Cold Edema: No Neurological: Yes: Alert. No: Seizure Psychiatric: No: Agitated Labs: CBC, BMP 08/14/19 06:05 08/14/19 06:05 Assessment/Plan Echo 08/17: nl LV/RV. mild-mod TR. no pulm HTN tele: AF, hr overall well controlled IMP: AF, ?new onset multiple mechanical falls CAD s/p PCI DM HTN HLD REC: -Tele shows rate controlled afib, cont BB -bp controlled -Echo here with nl lvef -Check orthostatic BPs if pt can stand -Treatment of possible UTI as per PMD. -awaiting PT eval re: balance/gait, falls risk--to determine whether can safely start AC -Imaging shows compression fx of spine, surgery following. -If ultimately started on oral AC, then will not need continued DAPT since her last pci was 2003. Would stop plavix when ac started. -will f/u as outpatient with her treating supercharge repair supervisor, dr estrada ([facility] [place]) after discharge verbalized understanding of above plan
--- NOTE | 2019-08-14 14:07 | PN ---
Progress Note (short form) - Note Progress Note: PULMONARY Denies shortness of breath, cough, chest pain. Vital Signs Period Temp Pulse Resp BP Sys/Gutierres Pulse Ox Last 24 Hr 97.9 F-98.9 F 71-123 18-20 104-153/54-119 96-96 Gen: NAD at rest Heart: RRR Lung: decreased breath sounds at the bases Abd: soft, nontender Ext: no edema CBC, BMP 08/14/19 06:05 08/14/19 06:05 Active Medications Atorvastatin Calcium (Lipitor -) 20 mg PO HS [facility] Last Admin: 08/13/19 23:18 Dose: 20 mg Docusate Sodium (Colace -) 100 mg PO BID [facility] Last Admin: 08/14/19 09:22 Dose: 100 mg Ceftriaxone Sodium 1 gm/ (Dextrose) 50 mls @ 200 mls/hr IVPB DAILY [facility]; Protocol Last Admin: 08/14/19 09:22 Dose: 200 mls/hr Insulin Aspart (Novolog Vial Sliding Scale -) 1 vial SQ ACHS [facility]; Protocol Last Admin: 08/14/19 11:30 Dose: Not Given Lidocaine (Lidoderm Patch -) 1 patch TP DAILY [facility] Last Admin: 08/14/19 09:22 Dose: 1 patch Melatonin (Melatonin) 1 mg PO HS [facility] Last Admin: 08/13/19 23:20 Dose: 1 mg Metoprolol Succinate (Toprol Xl -) 25 mg PO DAILY [facility] Last Admin: 08/14/19 09:21 Dose: 25 mg Miscellaneous (Lidoderm Patch Removal) 1 each MC DAILY@2200 [facility] Last Admin: 08/13/19 23:18 Dose: 1 each Oxycodone HCl (Roxicodone -) 5 mg PO Q6H PRN PRN Reason: PAIN LEVEL 7 - 10 Last Admin: 08/13/19 15:27 Dose: 5 mg Polyethylene Glycol (Miralax (For Daily Use) -) 17 gm PO DAILY [facility] Last Admin: 08/14/19 09:23 Dose: Not Given A/P Atrial Fibrillation LV Diastolic Dysfunction CAD HTN DM Hyperlipidemia - rate control - lasix as needed - O2 as needed - DVT prophylaxis
--- NOTE | 2019-08-14 14:57 | PN ---
Physical Exam: SUBJECTIVE: Patient seen and examined at the bedside. OBJECTIVE: cta 08/12/2019 negative for PE ------ Patient is an 84 year old female with a significant past medical history of diabetes, hypertension, hyperlipidemia, CAD x/p PCI who presented to the ED s/p fall secondary to tripping over a wet floor and fell onto her back onto concrete. Patient reports frequent falls at home, a total of 3 falls since February 2019 without LOC loss, no incontinence post fall, no history of seizures. She reports intermittent dizziness but denies any dizziness with the fall she had on admission. She was found to have new onset afib. A lumbur MRI done 08/12/19 shows mild acute L2 inferior endplate compression fx, a very small amount of acute epidural blood at posterior L2 vertebrae. discussed with neurosurgery dr. Vigil regarding Lumbar spine MRI findings of acute epidural bleeding. per Dr Vigil, hold all anticoagulation, hold asa and plavix, lovenox. no treatment recommended for mild acute l2 inferior endplate comp fx. Today, I spoke to Dr. Hernández of radiology, and a repeat lumbar spine mri recommended to assess epidural blood seen on previous lumbar mri. Vital Signs Period Temp Pulse Resp BP Sys/Gutierres Pulse Ox Last 24 Hr 97.9 F-98.9 F 71-123 18-20 104-153/54-119 96-96 GENERAL: Awake, alert, and fully oriented - speaks primarily azeri HEAD: Normal with no signs of trauma. EYES: Pupils equal, round and reactive to light, extraocular movements intact, sclera anicteric, conjunctiva clear. No lid lag. EARS, NOSE, THROAT: Ears normal, nares patent, oropharynx clear without exudates. Moist mucous membranes. NECK: Normal range of motion, supple without lymphadenopathy, JVD, or masses. LUNGS: lower lobes with fine crackles, left > right. on 2 liters of supplemental oxygen, to be weaned off as tolerated HEART: irregular 80s-110s on monitor ABDOMEN: Soft, nontender, not distended, normoactive bowel sounds, no guarding, no rebound, no masses. No hepatomegaly or splenomegaly. MUSCULOSKELETAL: Normal range of motion at all joints. No bony deformities or tenderness. No CVA tenderness. UPPER EXTREMITIES: No peripheral edema. LOWER EXTREMITIES: No peripheral edema. NEUROLOGICAL: Normal speech. PSYCHIATRIC: Cooperative. Good eye contact. Appropriate mood and affect. SKIN: Warm, dry, normal turgor, no rashes or lesions noted, normal capillary refill. Laboratory Results - last 24 hr 08/13/19 08/13/19 08/14/19 17:01 23:22 06:05 WBC 7.3 RBC 3.85 Hgb 12.2 Hct 35.5 MCV 92.3 MCH 31.7 MCHC 34.3 RDW 14.1 Plt Count 248 MPV 8.5 Absolute Neuts (auto) 5.2 Neutrophils % 71.4 Lymphocytes % 17.7 Monocytes % 7.3 Eosinophils % 3.0 Basophils % 0.6 Nucleated RBC % 0 Sodium Potassium Chloride Carbon Dioxide Anion Gap BUN Creatinine Est GFR (CKD-EPI)AfAm Est GFR (CKD-EPI)NonAf POC Glucometer 226 128 Random Glucose Calcium Magnesium Total Bilirubin AST ALT Alkaline Phosphatase Total Protein Albumin 08/14/19 08/14/19 08/14/19 06:05 06:21 11:17 WBC RBC Hgb Hct MCV MCH MCHC RDW Plt Count MPV Absolute Neuts (auto) Neutrophils % Lymphocytes % Monocytes % Eosinophils % Basophils % Nucleated RBC % Sodium 137 Potassium 4.3 Chloride 101 Carbon Dioxide 29 Anion Gap 7 L BUN 30.4 H Creatinine 1.0 Est GFR (CKD-EPI)AfAm 59.91 Est GFR (CKD-EPI)NonAf 51.69 POC Glucometer 137 185 Random Glucose 129 H Calcium 8.7 Magnesium 2.4 Total Bilirubin 0.4 AST 21 ALT 16 Alkaline Phosphatase 53 Total Protein 6.5 Albumin 3.2 L Active Medications Generic Name Dose Route Start Last Admin Trade Name Freq PRN Reason Stop Dose Admin Atorvastatin Calcium 20 mg 08/10/19 22:00 08/13/19 23:18 Lipitor - PO 20 mg HS [facility] Administration Docusate Sodium 100 mg 08/12/19 22:00 08/14/19 09:22 Colace - PO 100 mg BID [facility] Administration Ceftriaxone Sodium 1 gm/ 50 mls @ 200 mls/hr 08/11/19 10:00 08/14/19 09:22 Dextrose IVPB 200 mls/hr DAILY [facility] Administration Protocol Insulin Aspart 1 vial 08/10/19 22:00 08/14/19 11:30 Novolog Vial Sliding Scale - SQ Not Given ACHS [facility] Protocol Lidocaine 1 patch 08/10/19 18:15 08/14/19 09:22 Lidoderm Patch - TP 1 patch DAILY [facility] Administration Melatonin 1 mg 08/11/19 22:00 08/13/19 23:20 Melatonin PO 1 mg HS [facility] Administration Metoprolol Succinate 25 mg 08/12/19 10:08 08/14/19 09:21 Toprol Xl - PO 25 mg DAILY [facility] Administration Miscellaneous 1 each 08/10/19 22:00 08/13/19 23:18 Lidoderm Patch Removal MC 1 each DAILY@2200 [facility] Administration Oxycodone HCl 5 mg 08/10/19 18:01 08/13/19 15:27 Roxicodone - PO 5 mg Q6H PRN Administration PAIN LEVEL 7 - 10 Polyethylene Glycol 17 gm 08/13/19 13:15 08/14/19 09:23 Miralax (For Daily Use) - PO Not Given DAILY [facility] ASSESSMENT/PLAN: Problem List - Problems (1) Back pain Assessment/Plan: multiple falls at home and lumbar spine mri ordered by neuro Findings on MRI shows mild acute l2 inferior endplate comp fx. and acute small epidural bleeding. Discussed findings with Musa (neurosurgeon). per Dr Vigil, hold all anticoagulation, hold asa and plavix, lovenox. no treatment recommended for l2 inf compression fracture, but recommended pain management repeat lumbar spine mri to assess bleeding (lumbar spine mri ordered) Code(s): M54.9 - DORSALGIA, UNSPECIFIED Qualifiers: Back pain location: back pain in unspecified location Chronicity: acute Back pain laterality: midline Qualified Code(s): M54.9 - Dorsalgia, unspecified (2) Near syncope Assessment/Plan: mutiple falls at home of uncertain etiology some falls sound like mechanical falls but also reports intermittent dizziness noted to have new onset afib not on any anticoagulation head ct with mild/moderate atrophy troponins negative x 2 will need orthostatics, if not orthostatic, consider outpatient tilt table test Hold medications that can cause dizziness, hold ambien Code(s): R55 - SYNCOPE AND COLLAPSE (3) Fall at home Assessment/Plan: for physical therapy eval Many falls at home, at least 3 in the last 5 months per no LOC loss Lidoderm patch and percocet per pain management start on physical therapy Code(s): W19.XXXA - UNSPECIFIED FALL, INITIAL ENCOUNTER; Y92.099 - UNSP PLACE IN OTH NON-INSTITUTIONAL RESIDENCE PLACE Qualifiers: Encounter type: initial encounter Qualified Code(s): W19.XXXA - Unspecified fall, initial encounter; Y92.009 - Unspecified place in unspecified non-institutional (private) residence as the place of occurrence of the external cause (4) Hypertension Assessment/Plan: continue home medications and may need adjustment going forward orthostatics to be ordered for falls Code(s): I10 - ESSENTIAL (PRIMARY) HYPERTENSION (5) Diabetes Assessment/Plan: novolg with monitoring of bgms Code(s): E11.9 - TYPE 2 DIABETES MELLITUS WITHOUT COMPLICATIONS (6) Atrial fibrillation Assessment/Plan: new onset not on any anticoagulation has not followed with her cardiolgist and has a follow up appointment per this month per her started on therapeutic lovenox, but discontinued after lumbar spine mri shows acute epidural bleed. hold asa, plavix, lovenox, no heparin per neurosurgery recommendations. Code(s): I48.91 - UNSPECIFIED ATRIAL FIBRILLATION (7) CAD (coronary artery disease) Assessment/Plan: Continue Lipitor Code(s): I25.10 - ATHSCL HEART DISEASE OF [place] CORONARY ARTERY W/O ANG PCTRS (8) Hyponatremia Assessment/Plan: monitor with daily labs Code(s): E87.1 - HYPO-OSMOLALITY AND HYPONATREMIA (9) UTI (urinary tract infection) Assessment/Plan: UA with + nitrate, bacteria 2371 start on ceftriaxone, urine culture with <10k colony count but collected after antibiotics started continue ceftriaxone x 5 days, then patient can have repeat ua/uc with pcp Code(s): N39.0 - URINARY TRACT INFECTION, SITE NOT SPECIFIED (10) Shortness of breath Assessment/Plan: bilateral crackles ausculated, chest xray shows congestion, maintain oxygen > 92% on supplemental oxygen Code(s): R06.02 - SHORTNESS OF BREATH (11) Elevated d-dimer Assessment/Plan: elevated d dimer cta negative Code(s): R79.89 - OTHER SPECIFIED ABNORMAL FINDINGS OF BLOOD CHEMISTRY Visit type - Emergency Visit Emergency Visit: Yes ED Registration Date: 08/10/19 Care time: The patient presented to the Emergency Department on the above date and was hospitalized for further evaluation of their emergent condition. - New Patient This patient is new to me today: No - Critical Care Critical Care patient: No - Discharge Referral Referred to [facility] Med [facility].C[facility] No
[2019-08-14] MEDS ORDERED: oxyCODONE HCL 5 MG TABLET PO PRN (16:52)
[2019-08-14] MEDS ORDERED: INSULIN (NOVOLOG) ASPART 100 UNITS/ML 10ML VIAL ONE (21:11)
[2019-08-14] MEDS: MELATONIN 1 MG TABLET PO SCH (23:29)
[2019-08-14] MEDS: ATORVASTATIN CA 20 MG TABLET (FP) PO SCH (23:29)
[2019-08-14] MEDS: LIDOCAINE PATCH REMOVAL MC SCH (23:29)
[2019-08-15 06:50] LABS: EOS % 3.8 % (0-4.5); HEMATOCRIT 36.9 % (32.4-45.2); HEMOGLOBIN 12.4 GM/dL (10.7-15.3); LYMPH % 26.3 % (8-40); MCH 31.4 pg (25.7-33.7); MCHC 33.7 g/dl (32.0-36.0); MEAN CELL VOLUME 93.2 fl (80-96); MEAN PLT VOLUME 8.6 fl (7.5-11.1); NEUT % 60.9 % (42.8-82.8); PLATELET COUNT 268 K/MM3 (134-434); RBC 3.96 M/mm3 (3.60-5.2); RDW 13.9 % (11.6-15.6); WHITE BLOOD COUNT 7.1 K/mm3 (4.0-10.0)
[2019-08-15] MEDS: INSULIN SLIDING SCALE (NOVOLOG) 1 VIAL SQ SCH ×4 (07:00→21:44)
[2019-08-15 07:14] LABS: ALBUMIN 3.2 g/dl (3.4-5.0); BILIRUBIN,TOTAL 0.6 mg/dL (0.2-1); BLOOD UREA NITROGEN 26.2 mg/dL (7-18); CALCIUM 8.9 mg/dL (8.5-10.1); CREATININE 0.8 mg/dL (0.55-1.3); MAGNESIUM 2.6 mg/dL (1.8-2.4); POTASSIUM 4.2 mmol/L (3.5-5.1); TOT PROT 6.9 g/dl (6.4-8.2)
--- NOTE | 2019-08-15 07:45 | PN ---
Progress Note, Physician Chief Complaint: Speak some Malagasy, states she feels better and walked this morning History of Present Illness: Patient is an 84 year old female with a significant past medical history of DM, HTN, HLD , CAD x/p PCI who presented to the ED s/p mechanical fall. Frequent falls reported at home, a total of 3 falls since February 2019 without LOC loss. She reports intermittent dizziness but denies any dizziness with the fall she had on admission. She was found to have new onset AF. A lumbur MRI done 08/12/19 shows mild acute L2 inferior endplate compression fx, a very small amount of acute epidural blood at posterior L2 vertebrae. Neurosurgery following - Current Medication List Current Medications: Active Medications Atorvastatin Calcium (Lipitor -) 20 mg PO HS [facility] Last Admin: 08/14/19 23:29 Dose: 20 mg Docusate Sodium (Colace -) 100 mg PO BID [facility] Last Admin: 08/14/19 23:28 Dose: 100 mg Ceftriaxone Sodium 1 gm/ (Dextrose) 50 mls @ 200 mls/hr IVPB DAILY [facility]; Protocol Last Admin: 08/14/19 09:22 Dose: 200 mls/hr Insulin Aspart (Novolog Vial Sliding Scale -) 1 vial SQ ACHS [facility]; Protocol Last Admin: 08/15/19 07:00 Dose: Not Given Lidocaine (Lidoderm Patch -) 1 patch TP DAILY [facility] Last Admin: 08/14/19 09:22 Dose: 1 patch Melatonin (Melatonin) 1 mg PO HS [facility] Last Admin: 08/14/19 23:29 Dose: 1 mg Metoprolol Succinate (Toprol Xl -) 25 mg PO DAILY [facility] Last Admin: 08/14/19 09:21 Dose: 25 mg Miscellaneous (Lidoderm Patch Removal) 1 each MC DAILY@2200 [facility] Last Admin: 08/14/19 23:29 Dose: 1 each Oxycodone HCl (Roxicodone -) 5 mg PO Q6H PRN PRN Reason: PAIN LEVEL 7 - 10 Polyethylene Glycol (Miralax (For Daily Use) -) 17 gm PO DAILY [facility] Last Admin: 08/14/19 09:23 Dose: Not Given - Objective Vital Signs: Vital Signs Temperature 98.4 F 08/15/19 06:00 Pulse Rate 93 H 08/15/19 06:00 Respiratory Rate 20 08/15/19 06:00 Blood Pressure 128/78 08/15/19 06:00 O2 Sat by Pulse Oximetry (%) 94 L 08/14/19 21:00 Constitutional: Yes: Well Nourished, No Distress, Calm Eyes: Yes: WNL, Conjunctiva Clear HENT: Yes: WNL, Atraumatic, Normocephalic Neck: Yes: WNL, Supple, Trachea Midline Cardiovascular: Yes: Pulse Irregular (on Tele HR 80s) Respiratory: Yes: Rales (scattered) Gastrointestinal: Yes: WNL, Normal Bowel Sounds ...Rectal Exam: Yes: Deferred Genitourinary: Yes: WNL Breast(s): Yes: WNL Musculoskeletal: Yes: Muscle Weakness Extremities: Yes: WNL Edema: No Peripheral Pulses WNL: Yes Peripheral Pulses: Left Radial: 2+, Right Radial: 2+, Left Doralis Pedis: 2+, Right Dorsalis Pedis: 2+, Left Femoral: 2+, Right Femoral: 2+ Integumentary: Yes: WNL Neurological: Yes: WNL, Alert, Oriented ...Motor Strength: LLE, RLE (generalized weakness) Psychiatric: Yes: WNL Labs: CBC, BMP 08/15/19 06:05 08/15/19 06:05 - ....Imaging Cat Scan: Report Reviewed (Chest CT: no PE, bibalisar atelectasis) Ultrasound: Report Reviewed (Carotid dopplers:no stenosis) MRI: Report Reviewed (Lumbar: compression fx L2 with small epidural hemmorhage) Other: Report Reviewed (TTE:Ef 55-60%, Mild MR, mild/mod TR) Problem List - Problems (1) HLD (hyperlipidemia) Assessment/Plan: c/w atorvastatin low fat/ chol diet Code(s): E78.5 - HYPERLIPIDEMIA, UNSPECIFIED (2) Atrial fibrillation Assessment/Plan: rate controlled c/w toprol appreciate cardiology consultation Code(s): I48.91 - UNSPECIFIED ATRIAL FIBRILLATION (3) Back pain Assessment/Plan: L2 compression Fx c/w PT c/w lidoderm patch roxicodone for severe pain Code(s): M54.9 - DORSALGIA, UNSPECIFIED Qualifiers: Back pain location: back pain in unspecified location Chronicity: acute Back pain laterality: midline Qualified Code(s): M54.9 - Dorsalgia, unspecified (4) CAD (coronary artery disease) Assessment/Plan: TTE noted f/u as outpatient with home white sidewall tire buffer Code(s): I25.10 - ATHSCL HEART DISEASE OF [place] CORONARY ARTERY W/O ANG PCTRS (5) Compression fracture of L2 Assessment/Plan: no surgical intervention as per neurosurgery c/w PT fall precautions Code(s): S32.020A - WEDGE COMPRESSION FRACTURE OF SECOND LUMBAR VERTEBRA, INIT (6) Diabetes Assessment/Plan: BGM with novolog sliding scale Code(s): E11.9 - TYPE 2 DIABETES MELLITUS WITHOUT COMPLICATIONS (7) Elevated d-dimer Assessment/Plan: elevated d dimer CTA negative for PE Code(s): R79.89 - OTHER SPECIFIED ABNORMAL FINDINGS OF BLOOD CHEMISTRY (8) Hypertension Assessment/Plan: norvasc on hold given low BP continue to montior and will restart if elevates Code(s): I10 - ESSENTIAL (PRIMARY) HYPERTENSION (9) UTI (urinary tract infection) Assessment/Plan: Urine Cx with enterococcus c/w ceftriaxone Code(s): N39.0 - URINARY TRACT INFECTION, SITE NOT SPECIFIED (10) Hyponatremia Assessment/Plan: resolved, Na 140 continue to monitor Code(s): E87.1 - HYPO-OSMOLALITY AND HYPONATREMIA (11) Near syncope Assessment/Plan: c/w PT fall precautions Code(s): R55 - SYNCOPE AND COLLAPSE (12) Preventive measure Assessment/Plan: FEN low fat/chol diet monitor electrolytes adequate PO intake DVT no chemical AC,deferring to neurosurgery Dispo maintain on tele full code discharge planning Code(s): Z29.9 - ENCOUNTER FOR PROPHYLACTIC MEASURES, UNSPECIFIED (13) Fall at home Assessment/Plan: awaiting PT eval re: balance/gait, falls risk--to determine whether can safely start AC Imaging shows compression fx of spine, neurosurgery following. Code(s): W19.XXXA - UNSPECIFIED FALL, INITIAL ENCOUNTER; Y92.099 - UNSP PLACE IN OTH NON-INSTITUTIONAL RESIDENCE PLACE Qualifiers: Encounter type: initial encounter Qualified Code(s): W19.XXXA - Unspecified fall, initial encounter; Y92.009 - Unspecified place in unspecified non-institutional (private) residence as the place of occurrence of the external cause (14) Epidural hemorrhage Assessment/Plan: Repeat Lumbar Spine MRI completed, showed some improvement in small epidural blood. Code(s): S06.4X9A - EPIDURAL HEMORRHAGE W LOC OF UNSP DURATION, INIT Visit type - Emergency Visit Emergency Visit: Yes ED Registration Date: 08/10/19 Care time: The patient presented to the Emergency Department on the above date and was hospitalized for further evaluation of their emergent condition. - New Patient This patient is new to me today: Yes Date on this admission: 08/15/19 - Critical Care Critical Care patient: No - Discharge Referral Referred to [facility] Med P.C.: No
--- NOTE | 2019-08-15 08:28 | PN ---
Progress Note (short form) - Note Progress Note: Neurology CHIEF COMPLAINT: falls at home, back pain HISTORY OF PRESENT ILLNESS: Patient is an 84 year old German speaking (but understands some Prydeinig) female with a significant past medical history of diabetes, hypertension, hyperlipidemia, CAD x/p PCI who presented to the ED on day of admission s/p fall secondary to tripping over a wet floor and fell onto her back onto concrete. She denies any LOC loss but complains of mild headache and severe lower back pain. She denies any dizziness per notes, chest pain or shortness of breath prior to fall. No fevers, no recent infections, no chills. No previous history of irregular heart rate and was to follow up at the end of this month for follow up with a new winder helper. Patient reports frequent falls at home, a total of 3 falls since February 2019 without LOC loss, no incontinence post fall, no history of seizures. She reports intermittent dizziness but denies any dizziness with the fall she had today. Head CT completed, mild to moderate atrophy with no evidence of acute pathology. Cervical spine CT, indicates degenerative changes, no fracture. 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 Lumbar spine ct indicates multifocal degenerative changes with possible neuroforaminal compromise, no acute fracture. Carotid doppler completed, no evidence of artery stenosis. EKG indicates atrial fibrillation at 81 bpm, nonspecific T wave abnormalities. During my evaluation, she appeared fatigued and slightly confused. Will order MRI to rule out CVA. Brain MRI completed, no evidence of acute pathology. Lumbar Spine MRI completed, mild acute L2 inferior endplate compression fracture with small amount of acute epidural blood in the posterior of the L2 vertabrae, healed fracture of the L3 transverse process, small L1-L2 disc herniation. Echo completed, with no acute pathology. She may benefit from physical therapy and short-term rehabilitation to help with her gait and ambulation which remains unsteady. Discussed with hospitalist and recommended NSGY consult, hospitalist FINANCIAL REPORTING ACCOUNTANT reports discussing with Dr. Olvera who reportedly recommended no NSGY, hold antiplaltelet, pain control. Patient without acute events overnight, orthopedics note reviewed and mentioned L2 compression fracture but outpatient follow-up and no acute intervention required. Repeat Lumbar Spine MRI completed, showed some improvement in small epidural blood. Active Medications Atorvastatin Calcium (Lipitor -) [address] [facility] Last Admin: 08/14/19 23:29 Dose: 20 mg Docusate Sodium (Colace -) [address] [facility] Last Admin: 08/14/19 23:28 Dose: 100 mg Ceftriaxone Sodium 1 gm/ (Dextrose) 50 mls @ 200 mls/hr IVPB DAILY [facility]; Protocol Last Admin: 08/14/19 09:22 Dose: 200 mls/hr Insulin Aspart (Novolog Vial Sliding Scale -) [address] [facility]; Protocol Last Admin: 08/15/19 07:00 Dose: Not Given Lidocaine (Lidoderm Patch -) [address] [facility] Last Admin: 08/14/19 09:22 Dose: 1 patch Melatonin (Melatonin) 1 mg PO [facility] Last Admin: 08/14/19 23:29 Dose: 1 mg Metoprolol Succinate (Toprol Xl -) [address] [facility] Last Admin: 08/14/19 09:21 Dose: 25 mg Miscellaneous (Lidoderm Patch Removal) 1 each MC DAILY@2200 [facility] Last Admin: 08/14/19 23:29 Dose: 1 each Oxycodone HCl (Roxicodone -) 5 mg PO Q6H PRN PRN Reason: PAIN LEVEL 7 - 10 Polyethylene Glycol (Miralax (For Daily Use) -) [address] [facility] Last Admin: 08/14/19 09:23 Dose: Not Given PHYSICAL EXAMINATION Vital Signs Period Temp Pulse Resp BP Sys/Gutierres Pulse Ox Last 24 Hr 98.4 F-99.5 F 87-123 18-20 105-153/57-119 94-96 GENERAL: Awake, alert, and fully oriented HEAD: Normal with no signs of trauma. EYES: Pupils equal, round and reactive to light, extraocular movements intact, sclera anicteric, conjunctiva clear. No lid lag. EARS, NOSE, THROAT: Ears normal, nares patent, oropharynx clear without exudates. Moist mucous membranes. NECK: Normal range of motion, supple without lymphadenopathy, JVD, or masses. LUNGS: Breath sounds equal, clear to auscultation bilaterally. HEART: irregular 80s ABDOMEN: Soft, nontender, not distended, normoactive bowel sounds, no guarding, no rebound, no masses. No hepatomegaly or splenomegaly. MUSCULOSKELETAL: Normal range of motion at all joints. No bony deformities or tenderness. No CVA tenderness. UPPER EXTREMITIES: No peripheral edema. LOWER EXTREMITIES: No peripheral edema. NEUROLOGICAL: Awake, but somnolent, moves extremities grossly, sensory intact , gait limited PSYCHIATRIC: Cooperative. Good eye contact. Appropriate mood and affect. SKIN: Warm, dry, normal turgor, no rashes or lesions noted, normal capillary refill. CBCD WBC 7.1 K/mm3 (4.0-10.0) 08/15/19 06:05 RBC 3.96 M/mm3 (3.60-5.2) 08/15/19 06:05 Hgb 12.4 GM/dL (10.7-15.3) 08/15/19 06:05 Hct 36.9 % (32.4-45.2) 08/15/19 06:05 MCV 93.2 fl (80-96) 08/15/19 06:05 MCHC 33.7 g/dl (32.0-36.0) 08/15/19 06:05 RDW 13.9 % (11.6-15.6) 08/15/19 06:05 Plt Count 268 K/MM3 (134-434) 08/15/19 06:05 MPV 8.6 fl (7.5-11.1) 08/15/19 06:05 CMP Sodium 140 mmol/L (136-145) 08/15/19 06:05 Potassium 4.2 mmol/L (3.5-5.1) 08/15/19 06:05 Chloride 106 mmol/L (98-107) 08/15/19 06:05 Carbon Dioxide 27 mmol/L (21-32) 08/15/19 06:05 Anion Gap 7 MMOL/L (8-16) L 08/15/19 06:05 BUN 26.2 mg/dL (7-18) H 08/15/19 06:05 Creatinine 0.8 mg/dL (0.55-1.3) 08/15/19 06:05 Random Glucose 118 mg/dL (74-106) H 08/15/19 06:05 Calcium 8.9 mg/dL (8.5-10.1) 08/15/19 06:05 Total Bilirubin 0.6 mg/dL (0.2-1) 08/15/19 06:05 AST 19 U/L (15-37) 08/15/19 06:05 ALT 19 U/L (13-61) 08/15/19 06:05 Alkaline Phosphatase 58 U/L (45-117) 08/15/19 06:05 Total Protein 6.9 g/dl (6.4-8.2) 08/15/19 06:05 Albumin 3.2 g/dl (3.4-5.0) L 08/15/19 06:05 CARDIAC ENZYMES Creatine Kinase 134 U/L (26-192) 08/10/19 11:30 Troponin I < 0.02 ng/ml (0.00-0.05) 08/10/19 17:30 ASSESSMENT/PLAN: Patient is an 84 year old German speaking (but understands some Prydeinig) female with a significant past medical history of diabetes, hypertension, hyperlipidemia, CAD x/p PCI who presented to the ED on day of admission s/p fall secondary to tripping over a wet floor and fell onto her back onto concrete. She denies any LOC loss but complains of mild headache and severe lower back pain. She denies any dizziness per notes, chest pain or shortness of breath prior to fall. No fevers, no recent infections, no chills. No previous history of irregular heart rate and was to follow up at the end of this month for follow up with a new winder helper. Patient reports frequent falls at home, a total of 3 falls since February 2019 without LOC loss, no incontinence post fall, no history of seizures. She reports intermittent dizziness but denies any dizziness with the fall she had today. Head CT completed, mild to moderate atrophy with no evidence of acute pathology. Cervical spine CT, indicates degenerative changes, no fracture. 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 Lumbar spine ct indicates multifocal degenerative changes with possible neuroforaminal compromise, no acute fracture. Carotid doppler completed, no evidence of artery stenosis. EKG indicates atrial fibrillation at 81 bpm, nonspecific T wave abnormalities. During my evaluation, she appeared fatigued and slightly confused. Will order MRI to rule out CVA. Brain MRI completed, no evidence of acute pathology. Lumbar Spine MRI completed, mild acute L2 inferior endplate compression fracture with small amount of acute epidural blood in pthe posterior of the L2 vertabrae, healed fracture of the L3 transverse process, small L1-L2 disc herniation. Echo completed, with no acute pathology. She may benefit from physical therapy and short-term rehabilitation to help with her gait and ambulation which remains unsteady. We'll need evaluation regarding further assistive devices. Discussed with hospitalist and recommended NSGY consult, hospitalist FINANCIAL REPORTING ACCOUNTANT reports discussing with Dr. Olvera who reportedly recommended no NSGY, hold antiplatelet, pain control. at bedside and discussed with him. He was inquiring how long her stay would last which I indicated is still unclear. Fall precautions recommended. Continue medical evaluation and monitoring of mental status. Maintain adequate hydration. Monitor blood pressure, maintain normotensive range. Monitor glucose, maintain euglycemic range. Defer to NSGY regarding when to restart antiplatelet and risk/ benefit of surgical intervention. Patient without acute events overnight, orthopedics note reviewed and mentioned L2 compression fracture but outpatient follow-up and noacute intervention required. Repeat Lumbar Spine MRI completed, showed some improvement in small epidural blood. Defer to NSGY regarding restarting antiplatelet regiment.
[2019-08-15] MEDS ORDERED: cefTRIAXone SODIUM 1 GM VIAL ONE (09:27)
[2019-08-15] MEDS ORDERED: DEXTROSE 5%-WATER - 50 ML IVPB ONE (09:27)
[2019-08-15] MEDS: LIDOCAINE 5% TOPICAL PATCH TP SCH (09:51)
[2019-08-15] MEDS: DOCUSATE SODIUM 100 MG CAPSULE (FP) PO SCH ×2 (09:51→21:44)
[2019-08-15] MEDS: metoPROLOL SUCCINATE 25 MG TAB.SR.24H (FP) PO SCH (09:52)
[2019-08-15] MEDS: POLYETHYLENE GLYCOL 3350 119 GM BTL PO SCH (09:52)
[2019-08-15] MEDS: CEFTRIAXONE 1 GM in DEXTROSE 5%-WATER - 50 ML IVPB SCH (09:52)
[2019-08-15] MEDS ORDERED: metoPROLOL SUCCINATE 25 MG TAB.SR.24H (FP) PO ONE (12:09)
--- NOTE | 2019-08-15 12:12 | PN ---
Progress Note (short form) - Note Progress Note: s: no chest pain, palps, dizziness Current Medications Atorvastatin Calcium (Lipitor -) 20 mg PO HS [facility] Last Admin: 08/14/19 23:29 Dose: 20 mg Docusate Sodium (Colace -) 100 mg PO BID [facility] Last Admin: 08/15/19 09:51 Dose: 100 mg Ceftriaxone Sodium 1 gm/ (Dextrose) 50 mls @ 200 mls/hr IVPB DAILY [facility]; Protocol Last Admin: 08/15/19 09:52 Dose: 200 mls/hr Insulin Aspart (Novolog Vial Sliding Scale -) 1 vial SQ ACHS [facility]; Protocol Last Admin: 08/15/19 07:00 Dose: Not Given Lidocaine (Lidoderm Patch -) 1 patch TP DAILY [facility] Last Admin: 08/15/19 09:51 Dose: 1 patch Melatonin (Melatonin) 1 mg PO HS [facility] Last Admin: 08/14/19 23:29 Dose: 1 mg Metoprolol Succinate (Toprol Xl -) 25 mg PO DAILY [facility] Last Admin: 08/15/19 09:52 Dose: 25 mg Miscellaneous (Lidoderm Patch Removal) 1 each MC DAILY@2200 [facility] Last Admin: 08/14/19 23:29 Dose: 1 each Oxycodone HCl (Roxicodone -) 5 mg PO Q6H PRN PRN Reason: PAIN LEVEL 7 - 10 Polyethylene Glycol (Miralax (For Daily Use) -) 17 gm PO DAILY [facility] Last Admin: 08/15/19 09:52 Dose: 17 gm Vital Signs Period Temp Pulse Resp BP Sys/Gutierres Pulse Ox Last 24 Hr 98 F-99.5 F 83-103 18-20 116-136/60-91 94-96 Constitutional: Yes: Well Nourished, No Distress, Calm Cardiovascular: Yes: Pulse Irregular, S1, S2. No: Gallop, Murmur Respiratory: Yes: Regular, CTA Bilaterally (anteriorly (back pain)). No: Accessory Muscle Use, Rales, Wheezes Extremities: No: Cold Edema: No Neurological: Yes: Alert. No: Seizure Psychiatric: No: Agitated Assessment/Plan Echo 08/17: nl LV/RV. mild-mod TR. no pulm HTN tele: AF, episodes 130s IMP: AF, ?new onset multiple mechanical falls CAD s/p PCI DM HTN HLD REC: -Tele shows episodes RVR - inc metoprolol succinate to 50 mg daily -bp controlled -Echo here with nl lvef -Check orthostatic BPs if pt can stand -Treatment of possible UTI as per PMD. - PT eval re: balance/gait, falls risk--to determine whether can safely start AC -Imaging shows compression fx of spine with epidural bleed, surgery following - plavix held for now -If ultimately started on oral AC, then will not need continued DAPT since her last pci was 2003. Would dc plavix when ac started - holding both for now pending neursurgery and PT eval -will f/u as outpatient with her treating medical billing coordinator, [place]ada [place] [place] verbalized understanding of above plan
--- NOTE | 2019-08-15 12:44 | PN ---
Progress Note (short form) - Note Progress Note: PULMONARY Denies shortness of breath, cough, chest pain. Vital Signs Period Temp Pulse Resp BP Sys/Gutierres Pulse Ox Last 24 Hr 98 F-99.5 F 83-103 18-20 116-136/60-91 94-96 Gen: NAD at rest Heart: RRR Lung: decreased breath sounds at the bases Abd: soft, nontender Ext: no edema CBC, BMP 08/15/19 06:05 08/15/19 06:05 Active Medications Atorvastatin Calcium (Lipitor -) 20 mg PO HS [facility] Last Admin: 08/14/19 23:29 Dose: 20 mg Docusate Sodium (Colace -) 100 mg PO BID [facility] Last Admin: 08/15/19 09:51 Dose: 100 mg Ceftriaxone Sodium 1 gm/ (Dextrose) 50 mls @ 200 mls/hr IVPB DAILY [facility]; Protocol Last Admin: 08/15/19 09:52 Dose: 200 mls/hr Insulin Aspart (Novolog Vial Sliding Scale -) 1 vial SQ ACHS [facility]; Protocol Last Admin: 08/15/19 12:11 Dose: Not Given Lidocaine (Lidoderm Patch -) 1 patch TP DAILY [facility] Last Admin: 08/15/19 09:51 Dose: 1 patch Melatonin (Melatonin) 1 mg PO HS [facility] Last Admin: 08/14/19 23:29 Dose: 1 mg Metoprolol Succinate (Toprol Xl -) 50 mg PO DAILY [facility] Miscellaneous (Lidoderm Patch Removal) 1 each MC DAILY@2200 [facility] Last Admin: 08/14/19 23:29 Dose: 1 each Oxycodone HCl (Roxicodone -) 5 mg PO Q6H PRN PRN Reason: PAIN LEVEL 7 - 10 Polyethylene Glycol (Miralax (For Daily Use) -) 17 gm PO DAILY [facility] Last Admin: 08/15/19 09:52 Dose: 17 gm A/P s/p Fall Atrial Fibrillation LV Diastolic Dysfunction CAD HTN DM Hyperlipidemia - rate control - lasix as needed - O2 as needed - DVT prophylaxis
[2019-08-15] MEDS: ATORVASTATIN CA 20 MG TABLET (FP) PO SCH (21:43)
[2019-08-15] MEDS: MELATONIN 1 MG TABLET PO SCH (21:43)
[2019-08-15] MEDS: LIDOCAINE PATCH REMOVAL MC SCH (21:47)
[2019-08-16] MEDS: INSULIN SLIDING SCALE (NOVOLOG) 1 VIAL SQ SCH ×3 (06:19→17:30)
[2019-08-16 06:39] LABS: BASO % 1.5 % (0-2.0); HEMATOCRIT 35.1 % (32.4-45.2); HEMOGLOBIN 11.8 GM/dL (10.7-15.3); LYMPH % 23.1 % (8-40); MCHC 33.5 g/dl (32.0-36.0); MEAN CELL VOLUME 92.3 fl (80-96); MEAN PLT VOLUME 8.4 fl (7.5-11.1); MONO % 5.8 % (3.8-10.2); NEUT % 63.6 % (42.8-82.8); PLATELET COUNT 286 K/MM3 (134-434); RDW 13.8 % (11.6-15.6)
[2019-08-16 07:03] LABS: ALBUMIN 3.2 g/dl (3.4-5.0); BILIRUBIN,TOTAL 0.5 mg/dL (0.2-1); BLOOD UREA NITROGEN 28.8 mg/dL (7-18); CALCIUM 8.8 mg/dL (8.5-10.1); CREATININE 0.8 mg/dL (0.55-1.3); MAGNESIUM 2.5 mg/dL (1.8-2.4); POTASSIUM 4.4 mmol/L (3.5-5.1); TOT PROT 6.4 g/dl (6.4-8.2)
--- NOTE | 2019-08-16 07:30 | PN ---
Progress Note, Physician Chief Complaint: Speak some Cameroonian mostly Romansh. Examined while working with Nadir nicole History of Present Illness: Patient is an 84 year old female with a significant past medical history of DM, HTN, HLD , CAD x/p PCI who presented to the ED s/p mechanical fall. Frequent falls reported at home, a total of 3 falls since February 2019 without LOC loss. She reports intermittent dizziness but denies any dizziness with the fall she had on admission. She was found to have new onset AF. A lumbur MRI done 08/12/19 shows mild acute L2 inferior endplate compression fx, a very small amount of acute epidural blood at posterior L2 vertebrae. Neurosurgery following - Current Medication List Current Medications: Active Medications Atorvastatin Calcium (Lipitor -) 20 mg PO HS [facility] Last Admin: 08/15/19 21:43 Dose: 20 mg Docusate Sodium (Colace -) 100 mg PO BID [facility] Last Admin: 08/15/19 21:44 Dose: 100 mg Ceftriaxone Sodium 1 gm/ (Dextrose) 50 mls @ 200 mls/hr IVPB DAILY [facility]; Protocol Last Admin: 08/15/19 09:52 Dose: 200 mls/hr Insulin Aspart (Novolog Vial Sliding Scale -) 1 vial SQ ACHS [facility]; Protocol Last Admin: 08/16/19 06:19 Dose: Not Given Lidocaine (Lidoderm Patch -) 1 patch TP DAILY [facility] Last Admin: 08/15/19 09:51 Dose: 1 patch Melatonin (Melatonin) 1 mg PO HS [facility] Last Admin: 08/15/19 21:43 Dose: 1 mg Metoprolol Succinate (Toprol Xl -) 50 mg PO DAILY [facility] Miscellaneous (Lidoderm Patch Removal) 1 each MC DAILY@2200 [facility] Last Admin: 08/15/19 21:47 Dose: Not Given Oxycodone HCl (Roxicodone -) 5 mg PO Q6H PRN PRN Reason: PAIN LEVEL 7 - 10 Polyethylene Glycol (Miralax (For Daily Use) -) 17 gm PO DAILY [facility] Last Admin: 08/15/19 09:52 Dose: 17 gm - Objective Vital Signs: Vital Signs Temperature 98.2 F 08/16/19 06:00 Pulse Rate 82 08/16/19 06:00 Respiratory Rate 20 08/16/19 06:00 Blood Pressure 143/58 L 08/16/19 06:00 O2 Sat by Pulse Oximetry (%) 96 08/15/19 20:51 Additional Findings/Remarks: Constitutional: Yes: Well Nourished, No Distress, Calm Eyes: Yes: WNL, Conjunctiva Clear HENT: Yes: WNL, Atraumatic, Normocephalic Neck: Yes: WNL, Supple, Trachea Midline Cardiovascular: Yes: Pulse Irregular (on Tele HR 80s) Respiratory: Yes: Rales (scattered) L>R Gastrointestinal: Yes: WNL, Normal Bowel Sounds ...Rectal Exam: Yes: Deferred Genitourinary: Yes: WNL Breast(s): Yes: WNL Musculoskeletal: Yes: Muscle Weakness Extremities: Yes: WNL Edema: No Peripheral Pulses WNL: Yes Peripheral Pulses: Left Radial: 2+, Right Radial: 2+, Left Doralis Pedis: 2+, Right Dorsalis Pedis: 2+, Left Femoral: 2+, Right Femoral: 2+ Integumentary: Yes: WNL Neurological: Yes: WNL, Alert, Oriented ...Motor Strength: LLE, RLE (generalized weakness) Psychiatric: Yes: WNL Labs: CBC, BMP 08/16/19 05:56 08/16/19 05:56 Problem List - Problems (1) HLD (hyperlipidemia) Assessment/Plan: c/w atorvastatin low fat/ chol diet Code(s): E78.5 - HYPERLIPIDEMIA, UNSPECIFIED (2) Atrial fibrillation Assessment/Plan: rate controlled c/w toprol appreciate cardiology consultation deferring to neurosurgery when to safely resume AC-given her PCI was 2003 no need for DTAP. Cards recommended eliquis 2.5 bid Code(s): I48.91 - UNSPECIFIED ATRIAL FIBRILLATION (3) Back pain Assessment/Plan: L2 compression Fx c/w PT c/w lidoderm patch roxicodone for severe pain Code(s): M54.9 - DORSALGIA, UNSPECIFIED Qualifiers: Back pain location: back pain in unspecified location Chronicity: acute Back pain laterality: midline Qualified Code(s): M54.9 - Dorsalgia, unspecified (4) CAD (coronary artery disease) Assessment/Plan: TTE noted f/u as outpatient with home horticulture professor, Dr Angel Code(s): I25.10 - ATHSCL HEART DISEASE OF [place] CORONARY ARTERY W/O ANG PCTRS (5) Compression fracture of L2 Assessment/Plan: no surgical intervention as per neurosurgery c/w PT fall precautions Code(s): S32.020A - WEDGE COMPRESSION FRACTURE OF SECOND LUMBAR VERTEBRA, INIT (6) Diabetes Assessment/Plan: BGM well controlled BGM with novolog sliding scale Code(s): E11.9 - TYPE 2 DIABETES MELLITUS WITHOUT COMPLICATIONS (7) Elevated d-dimer Assessment/Plan: elevated d dimer CTA negative for PE Code(s): R79.89 - OTHER SPECIFIED ABNORMAL FINDINGS OF BLOOD CHEMISTRY (8) Hypertension Assessment/Plan: norvasc on hold given low BP continue to montior and will restart if elevates Code(s): I10 - ESSENTIAL (PRIMARY) HYPERTENSION (9) UTI (urinary tract infection) Assessment/Plan: Urine Cx with enterococcus c/w ceftriaxone, will convert to PO on discharge Code(s): N39.0 - URINARY TRACT INFECTION, SITE NOT SPECIFIED (10) Hyponatremia Assessment/Plan: resolved, Na 139 continue to monitor Code(s): E87.1 - HYPO-OSMOLALITY AND HYPONATREMIA (11) Near syncope Assessment/Plan: c/w PT fall precautions Code(s): R55 - SYNCOPE AND COLLAPSE (12) Preventive measure Assessment/Plan: FEN low fat/chol diet monitor electrolytes adequate PO intake DVT no chemical AC presently deferring to neurosurgery Dispo maintain on tele full code discharge planning Code(s): Z29.9 - ENCOUNTER FOR PROPHYLACTIC MEASURES, UNSPECIFIED (13) Fall at home Assessment/Plan: awaiting PT eval re: balance/gait, falls risk--to determine whether can safely start AC Imaging shows compression fx of spine, neurosurgery following. Code(s): W19.XXXA - UNSPECIFIED FALL, INITIAL ENCOUNTER; Y92.099 - UNSP PLACE IN OTH NON-INSTITUTIONAL RESIDENCE PLACE Qualifiers: Encounter type: initial encounter Qualified Code(s): W19.XXXA - Unspecified fall, initial encounter; Y92.009 - Unspecified place in unspecified non-institutional (private) residence as the place of occurrence of the external cause (14) Epidural hemorrhage Assessment/Plan: Repeat Lumbar Spine MRI completed, showed some improvement in small epidural blood. Code(s): S06.4X9A - EPIDURAL HEMORRHAGE W LOC OF UNSP DURATION, INIT Visit type - Emergency Visit Emergency Visit: Yes ED Registration Date: 08/10/19 Care time: The patient presented to the Emergency Department on the above date and was hospitalized for further evaluation of their emergent condition. - New Patient This patient is new to me today: No - Critical Care Critical Care patient: No - Discharge Referral Referred to [facility] Med [facility].C.: No
[2019-08-16] MEDS ORDERED: cefTRIAXone SODIUM 1 GM VIAL ONE (08:47)
[2019-08-16] MEDS ORDERED: DEXTROSE 5%-WATER - 50 ML IVPB ONE (08:48)
--- NOTE | 2019-08-16 08:55 | PN ---
Progress Note (short form) - Note Progress Note: Neurology CHIEF COMPLAINT: falls at home, back pain HISTORY OF PRESENT ILLNESS: Patient is an 84 year old Lao speaking (but understands some Citizen Of [place]) female with a significant past medical history of diabetes, hypertension, hyperlipidemia, CAD x/p PCI who presented to the ED on day of admission s/p fall secondary to tripping over a wet floor and fell onto her back onto concrete. She denies any LOC loss but complains of mild headache and severe lower back pain. She denies any dizziness per notes, chest pain or shortness of breath prior to fall. No fevers, no recent infections, no chills. No previous history of irregular heart rate and was to follow up at the end of this month for follow up with a new invoice clerk. Patient reports frequent falls at home, a total of 3 falls since February 2019 without LOC loss, no incontinence post fall, no history of seizures. She reports intermittent dizziness but denies any dizziness with the fall she had today. Head CT completed, mild to moderate atrophy with no evidence of acute pathology. Cervical spine CT, indicates degenerative changes, no fracture. 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 Lumbar spine ct indicates multifocal degenerative changes with possible neuroforaminal compromise, no acute fracture. Carotid doppler completed, no evidence of artery stenosis. EKG indicates atrial fibrillation at 81 bpm, nonspecific T wave abnormalities. During my evaluation, she appeared fatigued and slightly confused. Will order MRI to rule out CVA. Brain MRI completed, no evidence of acute pathology. Lumbar Spine MRI completed, mild acute L2 inferior endplate compression fracture with small amount of acute epidural blood in the posterior of the L2 vertabrae, healed fracture of the L3 transverse process, small L1-L2 disc herniation. Echo completed, with no acute pathology. She may benefit from physical therapy and short-term rehabilitation to help with her gait and ambulation which remains unsteady. Discussed with hospitalist and recommended NSGY consult, hospitalist HUMAN SERVICES PROGRAM SPECIALIST reports discussing with Dr. Olvera who reportedly recommended no NSGY, hold antiplaltelet, pain control. Patient without acute events overnight, orthopedics note reviewed and mentioned L2 compression fracture but outpatient follow-up and no acute intervention required. Repeat Lumbar Spine MRI completed, showed some improvement in small epidural blood. Discussed with hospitalist to reach out to neurosurgery to determine when it would be appropriate to restart antiplatelet medication. Active Medications Atorvastatin Calcium (Lipitor -) 20 mg PO HS [facility] Last Admin: 08/15/19 21:43 Dose: 20 mg Docusate Sodium (Colace -) 100 mg PO BID [facility] Last Admin: 08/15/19 21:44 Dose: 100 mg Ceftriaxone Sodium 1 gm/ (Dextrose) 50 mls @ 200 mls/hr IVPB DAILY [facility]; Protocol Last Admin: 08/15/19 09:52 Dose: 200 mls/hr Insulin Aspart (Novolog Vial Sliding Scale -) 1 vial SQ ACHS [facility]; Protocol Last Admin: 08/16/19 06:19 Dose: Not Given Lidocaine (Lidoderm Patch -) 1 patch TP DAILY [facility] Last Admin: 08/15/19 09:51 Dose: 1 patch Melatonin (Melatonin) 1 mg PO HS [facility] Last Admin: 08/15/19 21:43 Dose: 1 mg Metoprolol Succinate (Toprol Xl -) 50 mg PO DAILY [facility] Miscellaneous (Lidoderm Patch Removal) 1 each MC DAILY@2200 [facility] Last Admin: 08/15/19 21:47 Dose: Not Given Oxycodone HCl (Roxicodone -) 5 mg PO Q6H PRN PRN Reason: PAIN LEVEL 7 - 10 Polyethylene Glycol (Miralax (For Daily Use) -) 17 gm PO DAILY [facility] Last Admin: 08/15/19 09:52 Dose: 17 gm PHYSICAL EXAMINATION Vital Signs Period Temp Pulse Resp BP Sys/Gutierres Pulse Ox Last 24 Hr 97.2 F-98.2 F 77-85 18-20 111-143/58-75 96-96 GENERAL: Awake, alert, and fully oriented HEAD: Normal with no signs of trauma. EYES: Pupils equal, round and reactive to light, extraocular movements intact, sclera anicteric, conjunctiva clear. No lid lag. EARS, NOSE, THROAT: Ears normal, nares patent, oropharynx clear without exudates. Moist mucous membranes. NECK: Normal range of motion, supple without lymphadenopathy, JVD, or masses. LUNGS: Breath sounds equal, clear to auscultation bilaterally. HEART: irregular 80s ABDOMEN: Soft, nontender, not distended, normoactive bowel sounds, no guarding, no rebound, no masses. No hepatomegaly or splenomegaly. MUSCULOSKELETAL: Normal range of motion at all joints. No bony deformities or tenderness. No CVA tenderness. UPPER EXTREMITIES: No peripheral edema. LOWER EXTREMITIES: No peripheral edema. NEUROLOGICAL: Awake, but somnolent, moves extremities grossly, sensory intact , gait limited PSYCHIATRIC: Cooperative. Good eye contact. Appropriate mood and affect. SKIN: Warm, dry, normal turgor, no rashes or lesions noted, normal capillary refill. CBCD WBC 6.0 K/mm3 (4.0-10.0) 08/16/19 05:56 RBC 3.80 M/mm3 (3.60-5.2) 08/16/19 05:56 Hgb 11.8 GM/dL (10.7-15.3) 08/16/19 05:56 Hct 35.1 % (32.4-45.2) 08/16/19 05:56 MCV 92.3 fl (80-96) 08/16/19 05:56 MCHC 33.5 g/dl (32.0-36.0) 08/16/19 05:56 RDW 13.8 % (11.6-15.6) 08/16/19 05:56 Plt Count 286 K/MM3 (134-434) 08/16/19 05:56 MPV 8.4 fl (7.5-11.1) 08/16/19 05:56 CMP Sodium 139 mmol/L (136-145) 08/16/19 05:56 Potassium 4.4 mmol/L (3.5-5.1) 08/16/19 05:56 Chloride 107 mmol/L (98-107) 08/16/19 05:56 Carbon Dioxide 26 mmol/L (21-32) 08/16/19 05:56 Anion Gap 6 MMOL/L (8-16) L 08/16/19 05:56 BUN 28.8 mg/dL (7-18) H 08/16/19 05:56 Creatinine 0.8 mg/dL (0.55-1.3) 08/16/19 05:56 Random Glucose 116 mg/dL (74-106) H 08/16/19 05:56 Calcium 8.8 mg/dL (8.5-10.1) 08/16/19 05:56 Total Bilirubin 0.5 mg/dL (0.2-1) 08/16/19 05:56 AST 18 U/L (15-37) 08/16/19 05:56 ALT 17 U/L (13-61) 08/16/19 05:56 Alkaline Phosphatase 55 U/L (45-117) 08/16/19 05:56 Total Protein 6.4 g/dl (6.4-8.2) 08/16/19 05:56 Albumin 3.2 g/dl (3.4-5.0) L 08/16/19 05:56 CARDIAC ENZYMES Creatine Kinase 134 U/L (26-192) 08/10/19 11:30 Troponin I < 0.02 ng/ml (0.00-0.05) 08/10/19 17:30 ASSESSMENT/PLAN: Patient is an 84 year old Lao speaking (but understands some Citizen [place]) female with a significant past medical history of diabetes, hypertension, hyperlipidemia, CAD x/p PCI who presented to the ED on day of admission s/p fall secondary to tripping over a wet floor and fell onto her back onto concrete. She denies any LOC loss but complains of mild headache and severe lower back pain. She denies any dizziness per notes, chest pain or shortness of breath prior to fall. No fevers, no recent infections, no chills. No previous history of irregular heart rate and was to follow up at the end of this month for follow up with a new invoice clerk. Patient reports frequent falls at home, a total of 3 falls since February 2019 without LOC loss, no incontinence post fall, no history of seizures. She reports intermittent dizziness but denies any dizziness with the fall she had today. Head CT completed, mild to moderate atrophy with no evidence of acute pathology. Cervical spine CT, indicates degenerative changes, no fracture. 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 Lumbar spine ct indicates multifocal degenerative changes with possible neuroforaminal compromise, no acute fracture. Carotid doppler completed, no evidence of artery stenosis. EKG indicates atrial fibrillation at 81 bpm, nonspecific T wave abnormalities. During my evaluation, she appeared fatigued and slightly confused. Will order MRI to rule out CVA. Brain MRI completed, no evidence of acute pathology. Lumbar Spine MRI completed, mild acute L2 inferior endplate compression fracture with small amount of acute epidural blood in pthe posterior of the L2 vertabrae, healed fracture of the L3 transverse process, small L1-L2 disc herniation. Echo completed, with no acute pathology. She may benefit from physical therapy and short-term rehabilitation to help with her gait and ambulation which remains unsteady. We'll need evaluation regarding further assistive devices. Discussed with hospitalist and recommended NSGY consult, hospitalist HUMAN SERVICES PROGRAM SPECIALIST reports discussing with Dr. Olvera who reportedly recommended no NSGY, hold antiplatelet, pain control. at bedside and discussed with him. He was inquiring how long her stay would last which I indicated is still unclear. Fall precautions recommended. Continue medical evaluation and monitoring of mental status. Maintain adequate hydration. Monitor blood pressure, maintain normotensive range. Monitor glucose, maintain euglycemic range. Defer to NSGY regarding when to restart antiplatelet and risk/ benefit of surgical intervention. Patient without acute events overnight, orthopedics note reviewed and mentioned L2 compression fracture but outpatient follow-up and noacute intervention required. Repeat Lumbar Spine MRI completed, showed some improvement in small epidural blood. Defer to NSGY regarding restarting antiplatelet regiment. Discussed with hospitalist to reach out to neurosurgery to determine when it would be appropriate to restart antiplatelet medication. Discharge planning.
[2019-08-16] MEDS: CEFTRIAXONE 1 GM in DEXTROSE 5%-WATER - 50 ML IVPB SCH (09:08)
[2019-08-16] MEDS: DOCUSATE SODIUM 100 MG CAPSULE (FP) PO SCH (09:08)
[2019-08-16] MEDS: LIDOCAINE 5% TOPICAL PATCH TP SCH (09:08)
[2019-08-16] MEDS: POLYETHYLENE GLYCOL 3350 119 GM BTL PO SCH (09:09)
[2019-08-16] MEDS ORDERED: metoPROLOL SUCCINATE 25 MG TAB.SR.24H (FP) PO SCH (10:00)
--- NOTE | 2019-08-16 12:03 | PN ---
Progress Note, Physician History of Present Illness: PULMONARY ALERT,COMFORTABLE,-SOB - Current Medication List Current Medications: Active Medications Atorvastatin Calcium (Lipitor -) 20 mg PO HS [facility] Last Admin: 08/15/19 21:43 Dose: 20 mg Docusate Sodium (Colace -) 100 mg PO BID [facility] Last Admin: 08/16/19 09:08 Dose: 100 mg Ceftriaxone Sodium 1 gm/ (Dextrose) 50 mls @ 200 mls/hr IVPB DAILY [facility]; Protocol Last Admin: 08/16/19 09:08 Dose: 200 mls/hr Insulin Aspart (Novolog Vial Sliding Scale -) 1 vial SQ ACHS [facility]; Protocol Last Admin: 08/16/19 06:19 Dose: Not Given Lidocaine (Lidoderm Patch -) 1 patch TP DAILY [facility] Last Admin: 08/16/19 09:08 Dose: 1 patch Melatonin (Melatonin) 1 mg PO HS [facility] Last Admin: 08/15/19 21:43 Dose: 1 mg Metoprolol Succinate (Toprol Xl -) 50 mg PO DAILY [facility] Last Admin: 08/16/19 09:07 Dose: 50 mg Miscellaneous (Lidoderm Patch Removal) 1 each MC DAILY@2200 [facility] Last Admin: 08/15/19 21:47 Dose: Not Given Oxycodone HCl (Roxicodone -) 5 mg PO Q6H PRN PRN Reason: PAIN LEVEL 7 - 10 Polyethylene Glycol (Miralax (For Daily Use) -) 17 gm PO DAILY [facility] Last Admin: 08/16/19 09:09 Dose: 17 gm - Objective Vital Signs: Vital Signs Temperature 98.6 F 08/16/19 10:00 Pulse Rate 70 08/16/19 10:00 Respiratory Rate 18 08/16/19 10:00 Blood Pressure 125/68 08/16/19 10:00 O2 Sat by Pulse Oximetry (%) 99 08/16/19 09:00 Constitutional: Yes: Well Nourished, Calm Eyes: Yes: WNL HENT: Yes: WNL Neck: Yes: WNL Cardiovascular: Yes: Pulse Irregular, S1, S2 Respiratory: Yes: Rales (BIBASAILAR RALES L>R) Gastrointestinal: Yes: Normal Bowel Sounds, Soft Extremities: Yes: WNL Edema: No Labs: CBC, BMP 08/16/19 05:56 08/16/19 05:56 Problem List - Problems (1) Hypoxemia Code(s): R09.02 - HYPOXEMIA (2) Atrial fibrillation Code(s): I48.91 - UNSPECIFIED ATRIAL FIBRILLATION (3) Back pain Code(s): M54.9 - DORSALGIA, UNSPECIFIED Qualifiers: Back pain location: back pain in unspecified location Chronicity: acute Back pain laterality: midline Qualified Code(s): M54.9 - Dorsalgia, unspecified (4) CAD (coronary artery disease) Code(s): I25.10 - ATHSCL HEART DISEASE OF [place] CORONARY ARTERY W/O ANG PCTRS (5) Diabetes Code(s): E11.9 - TYPE 2 DIABETES MELLITUS WITHOUT COMPLICATIONS (6) Hypertension Code(s): I10 - ESSENTIAL (PRIMARY) HYPERTENSION (7) Dyspnea Code(s): R06.00 - DYSPNEA, UNSPECIFIED Assessment/Plan IMP HYPOXEMIA IMPROVED CHF AFIB ASHD S/P STENTS DM HLD HTN S/P FALL ? ASPIRATION L2 COMPRESSION FX PLAN O2 LASIX NEEDED RATE CONTROL PER CARDIOLOGY DR LEW Problem List - Problems (1) Hypoxemia Code(s): R09.02 - HYPOXEMIA (2) Atrial fibrillation Code(s): I48.91 - UNSPECIFIED ATRIAL FIBRILLATION (3) Back pain Code(s): M54.9 - DORSALGIA, UNSPECIFIED Qualifiers: Back pain location: back pain in unspecified location Chronicity: acute Back pain laterality: midline Qualified Code(s): M54.9 - Dorsalgia, unspecified (4) CAD (coronary artery disease) Code(s): I25.10 - ATHSCL HEART DISEASE OF [place] CORONARY ARTERY W/O ANG PCTRS (5) Diabetes Code(s): E11.9 - TYPE 2 DIABETES MELLITUS WITHOUT COMPLICATIONS (6) Hypertension Code(s): I10 - ESSENTIAL (PRIMARY) HYPERTENSION (7) Dyspnea Code(s): R06.00 - DYSPNEA, UNSPECIFIED
--- NOTE | 2019-08-16 12:07 | PN ---
Progress Note (short form) - Note Progress Note: s: no chest pain, palps, dizziness Current Medications Atorvastatin Calcium (Lipitor -) [address] [facility] Last Admin: 08/15/19 21:43 Dose: 20 mg Docusate Sodium (Colace -) [address] [facility] Last Admin: 08/16/19 09:08 Dose: 100 mg Ceftriaxone Sodium 1 gm/ (Dextrose) 50 mls @ 200 mls/hr IVPB DAILY [facility]; Protocol Last Admin: 08/16/19 09:08 Dose: 200 mls/hr Insulin Aspart (Novolog Vial Sliding Scale -) [address] [facility]; Protocol Last Admin: 08/16/19 06:19 Dose: Not Given Lidocaine (Lidoderm Patch -) [address] [facility] Last Admin: 08/16/19 09:08 Dose: 1 patch Melatonin (Melatonin) [address] [facility] Last Admin: 08/15/19 21:43 Dose: 1 mg Metoprolol Succinate (Toprol Xl -) [address] [facility] Last Admin: 08/16/19 09:07 Dose: 50 mg Miscellaneous (Lidoderm Patch Removal) 1 each MC DAILY@2200 [facility] Last Admin: 08/15/19 21:47 Dose: Not Given Oxycodone HCl (Roxicodone -) 5 mg PO Q6H PRN PRN Reason: PAIN LEVEL 7 - 10 Polyethylene Glycol (Miralax (For Daily Use) -) [address] [facility] Last Admin: 08/16/19 09:09 Dose: 17 gm Vital Signs Period Temp Pulse Resp BP Sys/Gutierres Pulse Ox Last 24 Hr 97.2 F-98.6 F 70-85 18-20 111-143/58-75 96-99 Constitutional: Yes: Well Nourished, No Distress, Calm Cardiovascular: Yes: Pulse Irregular, S1, S2. No: Gallop, Murmur Respiratory: Yes: Regular, CTA Bilaterally (anteriorly (back pain)). No: Accessory Muscle Use, Rales, Wheezes Extremities: No: Cold Edema: No Neurological: Yes: Alert. No: Seizure Psychiatric: No: Agitated no jaundice, diaphoresis Assessment/Plan Echo 08/17: nl LV/RV. mild-mod TR. no pulm HTN tele: afib, rate controlled IMP: AF, ?new onset multiple mechanical falls CAD s/p PCI DM HTN HLD REC: -Tele shows episodes RVR - inc metoprolol succinate to 50 mg daily -bp controlled -Echo here with nl lvef -Check orthostatic BPs if pt can stand -Treatment of possible UTI as per PMD. - PT eval re: balance/gait, falls risk - reportedly gait stable, recent fall was a slip on wet floor per -Imaging shows compression fx of spine with epidural bleed, surgery following - DAPT held for now - neurosurgery recs regarding restarting antiplatelet, starting AC -if able to start oral AC, would not need continued DAPT - would consider eliquis 2.5 mg BID (low dose for age, weight) in addition to aspirin with dc plavix if able pending neurosurgery evaluation -will f/u as outpatient with her treating planner [place]ship, [place] [place]
[2019-08-16 14:25] VITALS: TEMP 98.7
[2019-08-16 14:27] VITALS: BP 114/64; PULSE 76
[2019-08-16] MEDS ORDERED: ASPIRIN COATED 81 MG TABLET.EC PO SCH (14:30)
--- NOTE | 2019-08-16 15:36 | DS ---
Physical Exam: SUBJECTIVE: Patient seen and examined Patient is an 84 year old female with a significant past medical history of DM, HTN, HLD , CAD x/p PCI who presented to the ED s/p mechanical fall. Frequent falls reported at home, a total of 3 falls since February 2019 without LOC loss. She reports intermittent dizziness but denies any dizziness with the fall she had on admission. She was found to have new onset AF. A lumbur MRI done 08/12/19 shows mild acute L2 inferior endplate compression fx, a very small amount of acute epidural blood at posterior L2 vertebrae. OBJECTIVE: Vital Signs Period Temp Pulse Resp BP Sys/Gutierres Pulse Ox Last 24 Hr 97.2 F-98.7 F 70-85 18-20 114-143/58-75 96-99 PHYSICAL EXAM Constitutional: Yes: Well Nourished, No Distress, Calm Eyes: Yes: WNL, Conjunctiva Clear HENT: Yes: WNL, Atraumatic, Normocephalic Neck: Yes: WNL, Supple, Trachea Midline Cardiovascular: Yes: Pulse Irregular (on Tele HR 80s) Respiratory: Yes: Rales (scattered) L>R Gastrointestinal: Yes: WNL, Normal Bowel Sounds ...Rectal Exam: Yes: Deferred Genitourinary: Yes: WNL Breast(s): Yes: WNL Musculoskeletal: Yes: Muscle Weakness Extremities: Yes: WNL Edema: No Peripheral Pulses WNL: Yes Peripheral Pulses: Left Radial: 2+, Right Radial: 2+, Left Doralis Pedis: 2+, Right Dorsalis Pedis: 2+, Left Femoral: 2+, Right Femoral: 2+ Integumentary: Yes: WNL Neurological: Yes: WNL, Alert, Oriented ...Motor Strength: LLE, RLE (generalized weakness) Psychiatric: Yes: WNL LABS Laboratory Results - last 24 hr 08/15/19 08/15/19 08/16/19 16:35 21:06 05:56 WBC 6.0 RBC 3.80 Hgb 11.8 Hct 35.1 MCV 92.3 MCH 31.0 MCHC 33.5 RDW 13.8 Plt Count 286 MPV 8.4 Absolute Neuts (auto) 3.8 Neutrophils % 63.6 Lymphocytes % 23.1 Monocytes % 5.8 Eosinophils % 6.0 H Basophils % 1.5 Nucleated RBC % 0 Sodium Potassium Chloride Carbon Dioxide Anion Gap BUN Creatinine Est GFR (CKD-EPI)AfAm Est GFR (CKD-EPI)NonAf POC Glucometer 158 176 Random Glucose Calcium Magnesium Total Bilirubin AST ALT Alkaline Phosphatase Total Protein Albumin 08/16/19 08/16/19 08/16/19 05:56 06:18 12:03 WBC RBC Hgb Hct MCV MCH MCHC RDW Plt Count MPV Absolute Neuts (auto) Neutrophils % Lymphocytes % Monocytes % Eosinophils % Basophils % Nucleated RBC % Sodium 139 Potassium 4.4 Chloride 107 Carbon Dioxide 26 Anion Gap 6 L BUN 28.8 H Creatinine 0.8 Est GFR (CKD-EPI)AfAm 78.47 Est GFR (CKD-EPI)NonAf 67.70 POC Glucometer 131 108 Random Glucose 116 H Calcium 8.8 Magnesium 2.5 H Total Bilirubin 0.5 AST 18 ALT 17 Alkaline Phosphatase 55 Total Protein 6.4 Albumin 3.2 L HOSPITAL COURSE: Date of Admission:08/10/19 Date of Discharge: 08/16/19 Problem List - Problems (1) HLD (hyperlipidemia) Assessment/Plan: c/w atorvastatin low fat/ chol diet Code(s): E78.5 - HYPERLIPIDEMIA, UNSPECIFIED (2) Atrial fibrillation Assessment/Plan: rate controlled c/w toprol will folllow with home records management technician Dr Angel in august able to restart baby asa 81mg Code(s): I48.91 - UNSPECIFIED ATRIAL FIBRILLATION (3) Back pain Assessment/Plan: L2 compression Fx c/w lidoderm patch Code(s): M54.9 - DORSALGIA, UNSPECIFIED Qualifiers: Back pain location: back pain in unspecified location Chronicity: acute Back pain laterality: midline Qualified Code(s): M54.9 - Dorsalgia, unspecified (4) CAD (coronary artery disease) Assessment/Plan: TTE noted f/u as outpatient with home records management technician, Dr Angel Code(s): I25.10 - ATHSCL HEART DISEASE OF [place] CORONARY ARTERY W/O ANG PCTRS (5) Compression fracture of L2 Assessment/Plan: no surgical intervention as per neurosurgery c/w PT fall precautions Code(s): S32.020A - WEDGE COMPRESSION FRACTURE OF SECOND LUMBAR VERTEBRA, INIT (6) Diabetes Assessment/Plan: BGM well controlled BGM with novolog sliding scale Code(s): E11.9 - TYPE 2 DIABETES MELLITUS WITHOUT COMPLICATIONS (7) Elevated d-dimer Assessment/Plan: elevated d dimer CTA negative for PE Code(s): R79.89 - OTHER SPECIFIED ABNORMAL FINDINGS OF BLOOD CHEMISTRY (8) Hypertension Assessment/Plan: norvasc on hold given low BP Code(s): I10 - ESSENTIAL (PRIMARY) HYPERTENSION (9) UTI (urinary tract infection) Assessment/Plan: Urine Cx with enterococcus completed course of ceftriaxone Code(s): N39.0 - URINARY TRACT INFECTION, SITE NOT SPECIFIED (10) Hyponatremia Assessment/Plan: resolved, Na 139 Code(s): E87.1 - HYPO-OSMOLALITY AND HYPONATREMIA (11) Near syncope Assessment/Plan: c/w PT fall precautions Code(s): R55 - SYNCOPE AND COLLAPSE (12) Preventive measure Assessment/Plan: FEN low fat/chol diet monitor electrolytes adequate PO intake DVT no chemical AC presently deferring to neurosurgery Dispo maintain on tele full code discharge planning Code(s): Z29.9 - ENCOUNTER FOR PROPHYLACTIC MEASURES, UNSPECIFIED (13) Fall at home Assessment/Plan: awaiting PT eval re: balance/gait, falls risk--to determine whether can safely start AC Imaging shows compression fx of spine, neurosurgery following. Code(s): W19.XXXA - UNSPECIFIED FALL, INITIAL ENCOUNTER; Y92.099 - UNSP PLACE IN OTH NON-INSTITUTIONAL RESIDENCE PLACE Qualifiers: Encounter type: initial encounter Qualified Code(s): W19.XXXA - Unspecified fall, initial encounter; Y92.009 - Unspecified place in unspecified non-institutional (private) residence as the place of occurrence of the external cause (14) Epidural hemorrhage Assessment/Plan: Repeat Lumbar Spine MRI completed, showed some improvement in small epidural blood. Code(s): S06.4X9A - EPIDURAL HEMORRHAGE W LOC OF UNSP DURATION, INIT Minutes to complete discharge: 45 Discharge Summary Problems reviewed: Yes Reason For Visit: FALL AT HOME Current Active Problems Atrial fibrillation (Acute) Back pain (Acute) CAD (coronary artery disease) (Acute) Compression fracture of L2 (Acute) Diabetes (Acute) Dyspnea (Acute) Elevated d-dimer (Acute) Epidural hemorrhage (Acute) HLD (hyperlipidemia) (Acute) Hypertension (Acute) Hypoxemia (Acute) Preventive measure (Acute) Shortness of breath (Acute) UTI (urinary tract infection) (Acute) UTI (urinary tract infection) (Acute) Hospital Course: HOSPITAL COURSE: Date of Admission:08/10/19 Date of Discharge: 08/16/19 Problem List - Problems (1) HLD (hyperlipidemia) Assessment/Plan: c/w atorvastatin low fat/ chol diet Code(s): E78.5 - HYPERLIPIDEMIA, UNSPECIFIED (2) Atrial fibrillation Assessment/Plan: rate controlled c/w toprol will folllow with home records management technician Dr Angel in august able to restart baby asa 81mg Code(s): I48.91 - UNSPECIFIED ATRIAL FIBRILLATION (3) Back pain Assessment/Plan: L2 compression Fx c/w lidoderm patch Code(s): M54.9 - DORSALGIA, UNSPECIFIED Qualifiers: Back pain location: back pain in unspecified location Chronicity: acute Back pain laterality: midline Qualified Code(s): M54.9 - Dorsalgia, unspecified (4) CAD (coronary artery disease) Assessment/Plan: TTE noted f/u as outpatient with home records management technician, Dr Angel Code(s): I25.10 - ATHSCL HEART DISEASE OF [place] CORONARY ARTERY W/O ANG PCTRS (5) Compression fracture of L2 Assessment/Plan: no surgical intervention as per neurosurgery c/w PT fall precautions Code(s): S32.020A - WEDGE COMPRESSION FRACTURE OF SECOND LUMBAR VERTEBRA, INIT (6) Diabetes Assessment/Plan: BGM well controlled BGM with novolog sliding scale Code(s): E11.9 - TYPE 2 DIABETES MELLITUS WITHOUT COMPLICATIONS (7) Elevated d-dimer Assessment/Plan: elevated d dimer CTA negative for PE Code(s): R79.89 - OTHER SPECIFIED ABNORMAL FINDINGS OF BLOOD CHEMISTRY (8) Hypertension Assessment/Plan: norvasc on hold given low BP Code(s): I10 - ESSENTIAL (PRIMARY) HYPERTENSION (9) UTI (urinary tract infection) Assessment/Plan: Urine Cx with enterococcus completed course of ceftriaxone Code(s): N39.0 - URINARY TRACT INFECTION, SITE NOT SPECIFIED (10) Hyponatremia Assessment/Plan: resolved, Na 139 Code(s): E87.1 - HYPO-OSMOLALITY AND HYPONATREMIA (11) Near syncope Assessment/Plan: c/w PT fall precautions Code(s): R55 - SYNCOPE AND COLLAPSE (12) Preventive measure Assessment/Plan: FEN low fat/chol diet monitor electrolytes adequate PO intake DVT no chemical AC presently deferring to neurosurgery Dispo maintain on tele full code discharge planning Code(s): Z29.9 - ENCOUNTER FOR PROPHYLACTIC MEASURES, UNSPECIFIED (13) Fall at home Assessment/Plan: awaiting PT eval re: balance/gait, falls risk--to determine whether can safely start AC Imaging shows compression fx of spine, neurosurgery following. Code(s): W19.XXXA - UNSPECIFIED FALL, INITIAL ENCOUNTER; Y92.099 - UNSP PLACE IN OTH NON-INSTITUTIONAL RESIDENCE PLACE Qualifiers: Encounter type: initial encounter Qualified Code(s): W19.XXXA - Unspecified fall, initial encounter; Y92.009 - Unspecified place in unspecified non-institutional (private) residence as the place of occurrence of the external cause (14) Epidural hemorrhage Assessment/Plan: Repeat Lumbar Spine MRI completed, showed some improvement in small epidural blood. Code(s): S06.4X9A - EPIDURAL HEMORRHAGE W LOC OF UNSP DURATION, INIT Condition: Improved - Instructions Diet, Activity, Other Instructions: DISCHARGE YOUR VISIT You came to the hospital because you fell and suffered a fracture in your lumbar spine and a small bleed in your brain. You were seen by the neurosurgeon and no surgery was needed. The fracture will heel and the blood will re-absorb MEDICATIONS Please continue to take your home medications as prescribed. There was the following changes STOP the following medications: PLAVIX TRAZADONE AMBIEN LOSARTAN HYDROCHLOROZIDE (HCTZ) NORVASC CONTINUE the following: baby aspirin lipitor colacwe metformin toprol miralax START Lidoderm patch for your back DIET Continue your home diet ADDITIONAL CARE Please make an appointment to see your primary care provider, 1 week from today. Keep your appointment with Dr Angel next month ADDITIONAL INFORMATION Please call 911 or come directly to the emergency department if you experience unusual headache, vision change, shortness of breath, chest pain, numbness, tingling, loss of alertness/awareness, loss of function, unusual bleeding or any alarming symptoms. Thank you for allowing me to care for you. Gabino Bailey, ACNP, DNP [facility] [phone] Referrals: Omid Vigil MD [Staff Physician] - ON STAFF,NOT [Primary Care Provider] - Disposition: HOME - Home Medications Comprehensive Discharge Medication List: Ambulatory Orders Atorvastatin Ca [Lipitor] 20 mg PO HS 09/22/15 metFORMIN HCL [Metformin ER Osmotic] 750 mg PO DAILY 09/22/15 Alendronate Sodium [Fosamax] 1 tab PO WEEKLY 06/14/19 Aspirin [ASA -] 81 mg PO DAILY 06/14/19 Zolpidem Tartrate [Ambien] 10 mg PO HS 06/14/19 Aspirin Coated [Ecotrin -] 81 mg PO DAILY #0 tablet.ec 08/16/19 Docusate Sodium [Colace -] 100 mg PO BID capsule 08/16/19 Lidocaine 5% Patch [Lidoderm -] 1 patch TP DAILY #30 patch 08/16/19 Metoprolol Succinate [Toprol XL -] 50 mg PO DAILY #30 tab.sr.24h 08/16/19 Polyethylene Glycol 3350 [Miralax 119 gm Btl -] 17 gm PO DAILY bottle 08/16/19 Problem List - Problems (1) HLD (hyperlipidemia) Code(s): E78.5 - HYPERLIPIDEMIA, UNSPECIFIED (2) Atrial fibrillation Code(s): I48.91 - UNSPECIFIED ATRIAL FIBRILLATION (3) Back pain Code(s): M54.9 - DORSALGIA, UNSPECIFIED Qualifiers: Back pain location: back pain in unspecified location Chronicity: acute Back pain laterality: midline Qualified Code(s): M54.9 - Dorsalgia, unspecified (4) CAD (coronary artery disease) Code(s): I25.10 - ATHSCL HEART DISEASE OF [place] CORONARY ARTERY W/O ANG PCTRS (5) Compression fracture of L2 Code(s): S32.020A - WEDGE COMPRESSION FRACTURE OF SECOND LUMBAR VERTEBRA, INIT (6) Diabetes Code(s): E11.9 - TYPE 2 DIABETES MELLITUS WITHOUT COMPLICATIONS (7) Elevated d-dimer Code(s): R79.89 - OTHER SPECIFIED ABNORMAL FINDINGS OF BLOOD CHEMISTRY (8) Hypertension Code(s): I10 - ESSENTIAL (PRIMARY) HYPERTENSION (9) UTI (urinary tract infection) Code(s): N39.0 - URINARY TRACT INFECTION, SITE NOT SPECIFIED (10) Hyponatremia Code(s): E87.1 - HYPO-OSMOLALITY AND HYPONATREMIA (11) Near syncope Code(s): R55 - SYNCOPE AND COLLAPSE (12) Preventive measure Code(s): Z29.9 - ENCOUNTER FOR PROPHYLACTIC MEASURES, UNSPECIFIED (13) Fall at home Code(s): W19.XXXA - UNSPECIFIED FALL, INITIAL ENCOUNTER; Y92.099 - UNSP PLACE IN OTH NON-INSTITUTIONAL RESIDENCE PLACE Qualifiers: Encounter type: initial encounter Qualified Code(s): W19.XXXA - Unspecified fall, initial encounter; Y92.009 - Unspecified place in unspecified non-institutional (private) residence as the place of occurrence of the external cause (14) Epidural hemorrhage Code(s): S06.4X9A - EPIDURAL HEMORRHAGE W LOC OF UNSP DURATION, INIT This patient is new to me today: No Emergency Visit: Yes ED Registration Date: 08/10/19 Care time: The patient presented to the Emergency Department on the above date and was hospitalized for further evaluation of their emergent condition. Critical Care patient: No - Discharge Referral Referred to [facility] Med P.C.: No
== END 2019-08-16 19:30 | disposition home or self-care (01) | DRG 551 ==
LOC: JER 10:06 → JERBED 14:03 → J4W 08-11 17:54
PROVIDERS: ADMIT Internal Medicine; ATTEND Nurse Practitioner Acute Care
DX: S32.020A Wedge compression fracture of second lumbar vertebra, initial encounter for closed fracture (principal); S06.4X0A Epidural hemorrhage without loss of consciousness, initial encounter; N39.0 Urinary tract infection, site not specified; E87.1 Hypo-osmolality and hyponatremia; I48.91 Unspecified atrial fibrillation; R55 Syncope and collapse; I95.9 Hypotension, unspecified; E78.5 Hyperlipidemia, unspecified; I10 Essential (primary) hypertension; E11.9 Type 2 diabetes mellitus without complications; I25.10 Atherosclerotic heart disease of native coronary artery without angina pectoris; Z98.61 Coronary angioplasty status; R09.02 Hypoxemia; W19.XXXA Unspecified fall, initial encounter; Y93.9 Activity, unspecified; Y92.099 Unspecified place in other non-institutional residence as the place of occurrence of the external cause
CPT/HCPCS: 36415; 70450-TC; 70551-TC; 71045-TC-FY; 71275-TC; 72125-TC; 72128-TC; 72131-TC; 72148-TC; 80053; 80061; 81003; 82550; 82962; 83036; 83721; 83735; 83880; 84436; 84443; 84484; 85025; 85379; 87040; 87086; 93005; 93010; 93306-TC; 93880-TC; 97116-GP; 97161-GP; 99284-25; Q9967

== ENCOUNTER 2019-10-19 11:25 | Inpatient (IN) | payer OTHER ==
--- NOTE | 2019-10-19 12:37 | PDOC ---
History of Present Illness - General Chief Complaint: Injury Stated Complaint: HIP/BACK PAIN Time Seen by Provider: 10/19/19 11:32 History Source: Spouse - History of Present Illness Initial Comments: 84F PMH AF (not on AC), DM, HTN, HLD, CAD s/p stents BIBEMS for unwitnessed fall last week. Pt brought into hospital today due to increased pain; unable to get pt out of bed today. At time of fall; pt was using walker to bathroom, walked a short distance w/o walker, felt dizzy and subsquently fell. Pt does not recall event. Currently endorsing midback pain and shoulder pain. Denies headache, head pain, numbness, tingling, weakness. Denies cp/sob, abd pain, n/v. Did not present to ED for evaluation on day of fall. Past History - Past Medical History Allergies/Adverse Reactions: Allergies Allergy/AdvReac Type Severity Reaction Status Date / Time ibuprofen Allergy Severe Verified 08/10/19 10:48 Home Medications: Ambulatory Orders Atorvastatin Ca [Lipitor] 20 mg PO HS 09/22/15 metFORMIN HCL [Metformin ER Osmotic] 750 mg PO DAILY 09/22/15 Alendronate Sodium [Fosamax] 1 tab PO WEEKLY 06/14/19 Zolpidem Tartrate [Ambien] 5 mg PO HS 06/14/19 Aspirin Coated [Ecotrin -] 81 mg PO DAILY #0 tablet.ec 08/16/19 Docusate Sodium [Colace -] 100 mg PO BID capsule 08/16/19 Lidocaine 5% Patch [Lidoderm Patch -] 1 patch TP DAILY #30 patch 08/16/19 Lidocaine Patch Removal [Lidoderm Patch Removal] 1 each MC DAILY@2200 #30 each 08/16/19 Metoprolol Succinate [Toprol XL -] 50 mg PO DAILY #30 tab.sr.24h 08/16/19 Polyethylene Glycol 3350 [Miralax 119 gm Btl -] 17 gm PO DAILY bottle 08/16/19 Amlodipine Besylate 10 mg PO DAILY 10/20/19 Clopidogrel Bisulfate [Clopidogrel] 75 mg PO DAILY 10/20/19 Hydrochlorothiazide [Hctz -] 1 tab PO WEEKLY 10/20/19 Icosapent Ethyl [Vascepa] 1 cap PO BID 10/20/19 Isosorbide Mononitrate [Isosorbide Mononitrate ER] 30 mg PO DAILY 10/20/19 Losartan Potassium 100 mg PO DAILY 10/20/19 Magnesium Oxide 400 mg PO DAILY 10/20/19 Mometasone Furoate 1 applic TP ASDIR 10/20/19 traZODone HCL [Trazodone HCl] 50 mg PO HS PRN 10/20/19 Anemia: No Asthma: No Cancer: No Cardiac Disorders: Yes (CAD, angina) CVA: No COPD: No CHF: No DVT: No Dementia: No Diabetes: Yes Dialysis: No GI Disorders: No Disorders: No HTN: Yes Hypercholesterolemia: Yes Kidney Stones: No Liver Disease: No Psychiatric Problems: No Seizures: No Thyroid Disease: No Lung CA: No - Surgical History Cardiac Surgery: Yes (card stent) - Immunization History Immunization Up to Date: No - Psycho Social/Smoking Cessation Hx Smoking History: Unknown if ever smoked Have you smoked in the past 12 months: No Hx Alcohol Use: No Drug/Substance Use Hx: No Substance Use Type: None Hx Substance Use Treatment: No Review of Systems - Review of Systems Comments:: CONSTITUTIONAL: Denies F / C HEENT: Denies headache, lightheadedness, dizziness RESP: Denies SOB CARD: Denies chest pain GI: Denies N / V / D, abdominal pain : Denies dysuria SKIN: Denies rashes NEURO: Denies numbness, tingling, weakness MSK: Endorses back pain, shoulder pain *Physical Exam - Vital Signs Last Vital Signs Temp Pulse Resp BP Pulse Ox 85 18 120/45 L 97 10/19/19 11:30 10/19/19 11:30 10/19/19 11:30 10/19/19 11:30 - Physical Exam GEN: NAD, AAOx3. HEENT: NC/AT, CN II-XII intact, EOMI, PERRL. No facial asymmetry. Moist mucous membranes. Normal voice. Supple neck w/ FROM w/o midline TTP. CV: S1/S2, RRR, no m/r/g LUNG: CTAB, no wheezes, crackles, rales, rhonchi. GI: Soft, ndnt, +BS, no guarding, no rebound. No masses. MSK: 2+ distal pulses. No LE edema. No obvious deformities of all extremities. FROM UE and LE b/l. +TTP of the left shoulder. +ecchymosis of the left shoulder NEURO: Moving all extremities well. 5/5 UE strength b/l. 5/5 LE strength b/l. Sensation symmetric and intact throughout. Ambulates w/ normal gait. BACK: +TTP midline thoracic spine, no paraspinal TTP. No obvious deformities, no step offs. mild TTP of the left trochanter; there is no pelvic instability. +ecchymosis of the right buttock; no skin changes over the back or hips except as noted. SKIN: warm, dry, intact; ecchymosis present (left shoulder, right buttock). PSYCH: Normal mood and affect. ED Treatment Course - LABORATORY CBC & Chemistry Diagram: 10/21/19 05:10 10/21/19 05:10 - RADIOLOGY Radiology Studies Ordered: Category Date Time Status CERVICAL SPINE CT W/O CONTR [CT] Stat CT Scan 10/19/19 12:[address] WITHOUT CONTRAST [CT] Stat CT Scan 10/19/19 12:[address] W/O CONTRAST [CT] Stat CT Scan 10/19/19 12:[address] W/O CONTRAST [CT] Stat CT Scan 10/19/19 12:07 Ordered CHEST X-RAY PORTABLE* [RAD] Stat Radiology 10/19/19 12:12 Ordered HIP & PELVIS-LEFT [RAD] Stat Radiology 10/19/19 12:12 Ordered SHOULDER-LEFT [RAD] Stat Radiology 10/19/19 12:12 Ordered Medical Decision Making - Medical Decision Making 10/19/19 12:33 84F BIBEMS fro home for unwitnessed fall, possible syncope; presenting one week after incident. TTP midline thoracic spine, left shoulder, and left hip. ecchymosis of the left shoulder and right buttocks. Neuro strength and sensation intact; HEENT exam reassuring. DDx - arrhythmia, lytes, anemia, infection; eval for traumatic injuries - CBC, CMP, Cardiac, Coags - XR: chest, left shoulder, left hip and pelvis - CT Head, C/T/L - UA, UC - Admit 10/19/19 14:42 Imaging reviewed discussed positive findings w/ radiologist reading - acute L1 compression fracture Hyponatremic to 129 admit 10/19/19 15:17 ADMITTED Discharge - Discharge Information Problems reviewed: Yes Clinical Impression/Diagnosis: Compression fracture Fall at home Qualifiers: Encounter type: initial encounter Qualified Code(s): W19.XXXA - Unspecified fall, initial encounter Condition: Guarded - Follow up/Referral - Patient Discharge Instructions - Post Discharge Activity
--- NOTE | 2019-10-19 12:40 | PDOC ---
Documentation entered by Kathrine Bernstein SCRIBE, acting as scribe for Jenny Montenegro MD. Jenny Montenegro MD: This documentation has been prepared by the Amandeep escalante Brenda, SCRIBE, under my direction and personally reviewed by me in its entirety. I confirm that the documentation accurately reflects all work, treatment, procedures, and medical decision making performed by me. Attending Attestation - Resident Resident Name: SatinderJuan - ED Attending Attestation I have performed the following: I have examined & evaluated the patient, The case was reviewed & discussed with the resident, I agree w/resident's findings & plan, Exceptions are as noted - HPI HPI: 10/19/19 12:54 The patient is an 84 year old female with a significant PMH of AF,DM, HTN, HLD, CAD s/p stents h/o frequent falls ( most recent 08/17 with L2 compressio fx and small epidural hematoma) who was brought in by EMS for an unwitnessed fall occurring last week resulting in increased pain today. Patient reports that pain was so great, wasn't able to get her out of bed. When patient fell 1 week ago, she walked towards the bathroom without a walker, reported feeling dizzy and falling. Patient is currently complaining of back pain and shoulder pains. The patient denies chest pain, shortness of breath, headache. Denies fever, chills, nausea, vomiting, diarrhea and constipation. Denies any urinary symptoms. Allergies: ibuprofen Past surgical history: Stents Social history: No reported hx of tobacco use, alcohol use or illicit drug use. PCP: Not on staff 10/19/19 14:33 - Physicial Exam PE: 10/19/19 12:37 awake alert lungs clear bilat heart rrr no mrg abd soft nt nd ext wwp. bilat pelvix/ hips ffrom, knee nt from. left shoulder ttp over lateral shoulder eccymssis over sacrum. and over thoracic spin. and lumbar spine no cervical spinal tenderness. head atraumatic. strength symmetric. bilat rib tenderness 10/19/19 14:33 - Medical Decision Making 10/19/19 12:39 84 yo F s/p fall one week ago, now c/o severe back pain unable to ambulate due to pain. no f/c no n/v no other complaints. normally ambulates with a walker. 10/19/19 14:28 ct lumbar spine with L1 compression fracture which is acute. will admit for pain control as pt is unable to walk. Heart Score/ECG Review #1 General ECG Interpretation: Normal Rate (89), Normal Intervals, No acute ischemic changes Compared to previous ECG there are: No significant change (comparison 08/10/19 atrial fibrillation. TWI III only)
[2019-10-19 14:01] LABS: BASO % 0.8 % (0-2.0); HEMATOCRIT 34.8 % (32.4-45.2); LYMPH % 26.7 % (8-40); MCHC 34.5 g/dl (32.0-36.0); MEAN CELL VOLUME 89.8 fl (80-96); MEAN PLT VOLUME 7.2 fl (7.5-11.1); MONO % 5.5 % (3.8-10.2); PLATELET COUNT 409 K/MM3 (134-434); RBC 3.88 M/mm3 (3.60-5.2); RDW 14.8 % (11.6-15.6); WHITE BLOOD COUNT 6.2 K/mm3 (4.0-10.0)
[2019-10-19 14:13] LABS: INR 0.89 (0.83-1.09); PROTHROMBIN TIME (PATIENT) 10.5 SEC (9.7-13.0)
[2019-10-19 14:16] LABS: ACTIVATED PTT 35.3 SECONDS (25.2-36.5)
[2019-10-19 14:27] LABS: URINE APPEARANCE CLEAR; URINE BILIRUBIN NEGATIVE (NEGATIVE); URINE COLOR YELLOW; URINE GLUCOSE (UA) NEGATIVE (NEGATIVE); URINE KETONE NEGATIVE (NEGATIVE); URINE LEUK ESTERASE NEGATIVE (NEGATIVE); URINE NITRITE NEGATIVE (NEGATIVE); URINE PROTEIN NEGATIVE (NEGATIVE); URINE UROBILINOGEN 0.2 mg/dL (0.2-1.0)
[2019-10-19] MEDS ORDERED: ACETAMINOPHEN 1000 MG/100 ML VIAL (NON FORMULARY) IVPB ONE (14:31)
[2019-10-19 14:32] LABS: ALBUMIN 3.8 g/dl (3.4-5.0); ALK PHOS 95 U/L (45-117); ANION GAP 9 MMOL/L (8-16); BILIRUBIN,TOTAL 0.7 mg/dL (0.2-1); BLOOD UREA NITROGEN 19.1 mg/dL (7-18); CALCIUM 8.9 mg/dL (8.5-10.1); CHLORIDE 97 mmol/L (98-107); CO2 24 mmol/L (21-32); CREATININE 0.9 mg/dL (0.55-1.3); GLUCOSE,RANDOM 118 mg/dL (74-106); POTASSIUM 4.7 mmol/L (3.5-5.1); SGOT/AST 21 U/L (15-37); SGPT/ALT 15 U/L (13-61); SODIUM 129 mmol/L (136-145); TOT PROT 7.6 g/dl (6.4-8.2)
[2019-10-19] MEDS ORDERED: ACETAMINOPHEN INJECTION 100 ML IVPB ONE (15:00)
--- NOTE | 2019-10-19 16:00 | HP ---
CHIEF COMPLAINT: lower back pain s/p fall PCP: HISTORY OF PRESENT ILLNESS: 84 yo F PMH of AFib ( not on AC), DM, HTN, HLD, CAD ( stents 2002, 2003) presents for LBP s/p fall last week. Pt reports falling last week after using the bathroom. pt usually walks with a walker and did not use it when going to the bathroom at home. pt reports feeling dizzy fell. After fall, pt has been having severe LBP and has been unable to walk. pt's has been caring for her in their apartment. pt has been using diapers as she is unable to walk to the bathroom. pt denies incontinence, states she needs the diaper bc she cant walk. pt states she gets these episodes more often and was recently hospitalized for a similar fall. Pt denies headache, CP, n/v. ER course was notable for: (1)IV acetaminophen (2)CT head, spine PAST MEDICAL HISTORY: see HPI PAST SURGICAL HISTORY: denies Social History: Smoking: denies Alcohol:denies Drugs: denies Allergies ibuprofen Allergy (Severe, Verified 08/10/19 10:48) HOME MEDICATIONS: Home Medications Medication Instructions Recorded Atorvastatin Ca [Lipitor] 20 mg PO HS 09/22/15 metFORMIN HCL [Metformin ER 750 mg PO DAILY 09/22/15 Osmotic] Alendronate Sodium [Fosamax] 1 tab PO WEEKLY 06/14/19 Aspirin [ASA -] 81 mg PO DAILY 06/14/19 Zolpidem Tartrate [Ambien] 10 mg PO HS 06/14/19 Aspirin Coated [Ecotrin -] 81 mg PO DAILY #0 tablet.ec 08/16/19 Docusate Sodium [Colace -] 100 mg PO BID capsule 08/16/19 Lidocaine 5% Patch [Lidoderm -] 1 patch TP DAILY #30 patch 08/16/19 Lidocaine 5% Patch [Lidoderm Patch 1 patch TP DAILY #30 patch 08/16/19 -] Lidocaine Patch Removal [Lidoderm 1 each MC DAILY@2200 #30 each 08/16/19 Patch Removal] Metoprolol Succinate [Toprol XL -] 50 mg PO DAILY #30 tab.sr.24h 08/16/19 Polyethylene Glycol 3350 [Miralax 17 gm PO DAILY bottle 08/16/19 119 gm Btl -] REVIEW OF SYSTEMS CONSTITUTIONAL: Present: weakness Absent: fever, chills, diaphoresis, malaise, loss of appetite, weight change HEENT: Absent: rhinorrhea, nasal congestion, throat pain, throat swelling, difficulty swallowing, mouth swelling, ear pain, eye pain, visual changes CARDIOVASCULAR: Absent: chest pain, syncope, palpitations, irregular heart rate, lightheadedness , peripheral edema RESPIRATORY: Absent: cough, shortness of breath, dyspnea with exertion, orthopnea, wheezing, stridor, hemoptysis GASTROINTESTINAL: Absent: abdominal pain, abdominal distension, nausea, vomiting, diarrhea, constipation, melena, hematochezia GENITOURINARY: Absent: dysuria, frequency, urgency, hesitancy, hematuria, flank pain, genital pain MUSCULOSKELETAL: Present: back pain Absent: myalgia, arthralgia, joint swelling,neck pain SKIN: Absent: rash, itching, pallor NEUROLOGIC: Present; dizziness, unsteady gait Absent: headache, focal weakness or paresthesias, seizure, mental status changes, bladder or bowel incontinence PSYCHIATRIC: Absent: anxiety, depression, suicidal or homicidal ideation, hallucinations. PHYSICAL EXAMINATION Vital Signs - 24 hr 10/19/19 11:30 Pulse Rate 85 Respiratory 18 Rate Blood Pressure 120/45 L O2 Sat by Pulse 97 Oximetry (%) GENERAL: Awake, alert, and fully oriented, in no acute distress. HEAD: Normal with no signs of trauma. EYES: Pupils equal, round and reactive to light, extraocular movements intact EARS, NOSE, THROAT: nares patent, oropharynx clear without exudates. Moist mucous membranes. hard of hearing NECK: supple without lymphadenopathy, JVD, or masses. + hepatojugular LUNGS: Breath sounds equal, clear to auscultation bilaterally. No wheezes, and no crackles. No accessory muscle use. HEART: irregularly irregular, + S1 and S2 ABDOMEN: Soft, nontender, not distended, normoactive bowel sounds, no guarding MUSCULOSKELETAL: paraspinal tenderness and lumbar midline tenderness No CVA tenderness. UPPER EXTREMITIES: 2+ pulses, warm, well-perfused. No cyanosis. No clubbing. No peripheral edema. LOWER EXTREMITIES: 2+ pulses, warm, well-perfused. No calf tenderness. No peripheral edema. NEUROLOGICAL: Cranial nerves II-XII intact. Normal speech. 4/5 muscle strength b/l UE and LE SKIN: Warm, dry, normal turgor, no rashes or lesions noted, normal capillary refill. large ecchymosis of L buttock Laboratory Last Values WBC 6.2 K/mm3 (4.0-10.0) 10/19/19 12:35 RBC 3.88 M/mm3 (3.60-5.2) 10/19/19 12:35 Hgb 12.0 GM/dL (10.7-15.3) 10/19/19 12:35 Hct 34.8 % (32.4-45.2) 10/19/19 12:35 MCV 89.8 fl (80-96) 10/19/19 12:35 MCH 31.0 pg (25.7-33.7) 10/19/19 12:35 MCHC 34.5 g/dl (32.0-36.0) 10/19/19 12:35 RDW 14.8 % (11.6-15.6) 10/19/19 12:35 Plt Count 409 K/MM3 (134-434) D 10/19/19 12:35 MPV 7.2 fl (7.5-11.1) L D 10/19/19 12:35 Absolute Neuts (auto) 4.1 K/mm3 (1.5-8.0) 10/19/19 12:35 Neutrophils % 66.0 % (42.8-82.8) 10/19/19 12:35 Lymphocytes % 26.7 % (8-40) 10/19/19 12:35 Monocytes % 5.5 % (3.8-10.2) 10/19/19 12:35 Eosinophils % 1.0 % (0-4.5) D 10/19/19 12:35 Basophils % 0.8 % (0-2.0) 10/19/19 12:35 Nucleated RBC % 0 % (0-0) 10/19/19 12:35 PT with INR 10.50 SEC (9.7-13.0) 10/19/19 12:35 INR 0.89 (0.83-1.09) 10/19/19 12:35 PTT (Actin FS) 35.3 SECONDS (25.2-36.5) 10/19/19 12:35 Sodium 129 mmol/L (136-145) L 10/19/19 12:35 Potassium 4.7 mmol/L (3.5-5.1) 10/19/19 12:35 Chloride 97 mmol/L (98-107) L 10/19/19 12:35 Carbon Dioxide 24 mmol/L (21-32) 10/19/19 12:35 Anion Gap 9 MMOL/L (8-16) 10/19/19 12:35 BUN 19.1 mg/dL (7-18) H 10/19/19 12:35 Creatinine 0.9 mg/dL (0.55-1.3) 10/19/19 12:35 Est GFR (CKD-EPI)AfAm 68.05 10/19/19 12:35 Est GFR (CKD-EPI)NonAf 58.71 10/19/19 12:35 Random Glucose 118 mg/dL (74-106) H 10/19/19 12:35 Calcium 8.9 mg/dL (8.5-10.1) 10/19/19 12:35 Total Bilirubin 0.7 mg/dL (0.2-1) 10/19/19 12:35 AST 21 U/L (15-37) 10/19/19 12:35 ALT 15 U/L (13-61) 10/19/19 12:35 Alkaline Phosphatase 95 U/L (45-117) 10/19/19 12:35 Creatine Kinase 63 U/L (26-192) 10/19/19 12:35 Troponin I < 0.02 ng/ml (0.00-0.05) 10/19/19 12:35 Total Protein 7.6 g/dl (6.4-8.2) 10/19/19 12:35 Albumin 3.8 g/dl (3.4-5.0) 10/19/19 12:35 Urine Color Yellow 10/19/19 14:20 Urine Appearance Clear 10/19/19 14:20 Urine pH 7.0 (5.0-8.0) 10/19/19 14:20 Ur Specific Evans 1.010 (1.010-1.035) 10/19/19 14:20 Urine Protein Negative (NEGATIVE) 10/19/19 14:20 Urine Glucose (UA) Negative (NEGATIVE) 10/19/19 14:20 Urine Ketones Negative (NEGATIVE) 10/19/19 14:20 Urine Blood Negative (NEGATIVE) 10/19/19 14:20 Urine Nitrite Negative (NEGATIVE) 10/19/19 14:20 Urine Bilirubin Negative (NEGATIVE) 10/19/19 14:20 Urine Urobilinogen 0.2 mg/dL (0.2-1.0) 10/19/19 14:20 Ur Leukocyte Esterase Negative (NEGATIVE) 10/19/19 14:20 CT Lumbar spine: Impression L1. Recent, acute osteoporotic compression fractures involving the superior endplate of L1. Sclerotic changes are noted in compressed L1 vertebral body. Mild retropulsion, posterior cortical disruption, encroaching on the anterior epidural space. The vertical height of compressed L2 vertebral body 14 mm, versus 19 mm on MRI of lumbosacral spine August 14, 2019. Mild paraspinal edema noted. L2. Chronic compression fracture of L2 vertebral body with significant loss of vertical height posterior retropulsion. Sclerotic changes are noted in the compressed L2 vertebral body. Please refer to the MRI of the lumbosacral spine August 14, 2016. ASSESSMENT/PLAN: 84 yo F PMH of AFib ( not on AC), DM, HTN, HLD, CAD ( stents 2002, 2003) presents for LBP s/p fall last week. pt is admitted for acute L1 Compression Fracture Low Back pain 2/2 L1 compression fracture - CT scan above. pending MRI - Neurosurgery consult, Dr. Wells - morphine 1 mg now - c/w tylenol for pain - incentive spirometry Fall 2/2 pre-syncope - r/o cardiac events - continue cardiac monitoring -EKG reviewed, Afib , no ST changes - Echo recently in july reviewed, may consider repeat - cardio consult , Dr. Ceron - unable to perform orthostatics 2/2 pain - 1st trop negative, pending second - UA negative pt home meds include ambien, please consider DC Hyponatremia - continue to monitor - IVF Afib - rate controled - c.w metoprolol HTN - c/.w metoprolol CAD ( s/p stents) - c/w metoprolol, statin - holding Asa until after MRI results DVT ppx: avoid chemical ppx, SCDs pt lives at home with who is primary hat blocking machine operator, social work appreciated to begin conversations regarding prison facility Dispo: Admit to Tele Visit type - Emergency Visit Emergency Visit: Yes ED Registration Date: 10/19/19 Care time: The patient presented to the Emergency Department on the above date and was hospitalized for further evaluation of their emergent condition. - New Patient This patient is new to me today: Yes Date on this admission: 10/19/19 - Critical Care Critical Care patient: No ATTENDING PHYSICIAN STATEMENT I saw and evaluated the patient. I reviewed the resident's note and discussed the case with the resident. I agree with the resident's findings and plan as documented. SUBJECTIVE: OBJECTIVE: ASSESSMENT AND PLAN:
--- NOTE | 2019-10-19 16:29 | PN ---
Teaching Attending Note Name of Resident: Teresa García ATTENDING PHYSICIAN STATEMENT I saw and evaluated the patient. I reviewed the resident's note and discussed the case with the resident. I agree with the resident's findings and plan as documented. SUBJECTIVE: Patient seen and examined at bedside, at bedside who is contributing to giving history. 84 F h/o Afib not on AC, CAD, HTn, HLD, T2Dm, multiple falls in the past, presents 1 week after fall, ?mechanical v.s. syncopal, was unwitnessed, now presenting with worsening sacral and LBP. OBJECTIVE: PE GA AAox2, mild distress, speaking in full sentences (in Thai with Cyracom and to translate), hard of hearing HEENT NC/AT, EOMI, neck supple, no scalp lacerations or hematoma, no facial trauma, dry MM Chest CTAB, no crackles or wheezing CVS Irregularly irregular, normal rate ~80-85, no m/r/g Abd Soft, mild diffuse tenderness to palpation, no guarding BS+ Ext moves all 4 ext. good strength UE and LE, sensation intact UE and LE, sacral hematoma present with bruising, L spine tenderness present Vital Signs - 24 hr 10/19/19 11:30 Pulse Rate 85 Respiratory 18 Rate Blood Pressure 120/45 L O2 Sat by Pulse 97 Oximetry (%) Laboratory Results - last 24 hr 10/19/19 10/19/19 10/19/19 12:35 12:35 12:35 WBC 6.2 RBC 3.88 Hgb 12.0 Hct 34.8 MCV 89.8 MCH 31.0 MCHC 34.5 RDW 14.8 Plt Count 409 D MPV 7.2 L D Absolute Neuts (auto) 4.1 Neutrophils % 66.0 Lymphocytes % 26.7 Monocytes % 5.5 Eosinophils % 1.0 D Basophils % 0.8 Nucleated RBC % 0 PT with INR 10.50 INR 0.89 PTT (Actin FS) 35.3 Sodium 129 L Potassium 4.7 Chloride 97 L Carbon Dioxide 24 Anion Gap 9 BUN 19.1 H Creatinine 0.9 Est GFR (CKD-EPI)AfAm 68.05 Est GFR (CKD-EPI)NonAf 58.71 Random Glucose 118 H Calcium 8.9 Total Bilirubin 0.7 AST 21 ALT 15 Alkaline Phosphatase 95 Creatine Kinase 63 Troponin I < 0.02 Total Protein 7.6 Albumin 3.8 Urine Color Urine Appearance Urine pH Ur Specific Talent Urine Protein Urine Glucose (UA) Urine Ketones Urine Blood Urine Nitrite Urine Bilirubin Urine Urobilinogen Ur Leukocyte Esterase 10/19/19 14:20 WBC RBC Hgb Hct MCV MCH MCHC RDW Plt Count MPV Absolute Neuts (auto) Neutrophils % Lymphocytes % Monocytes % Eosinophils % Basophils % Nucleated RBC % PT with INR INR PTT (Actin FS) Sodium Potassium Chloride Carbon Dioxide Anion Gap BUN Creatinine Est GFR (CKD-EPI)AfAm Est GFR (CKD-EPI)NonAf Random Glucose Calcium Total Bilirubin AST ALT Alkaline Phosphatase Creatine Kinase Troponin I Total Protein Albumin Urine Color Yellow Urine Appearance Clear Urine pH 7.0 Ur Specific Talent 1.010 Urine Protein Negative Urine Glucose (UA) Negative Urine Ketones Negative Urine Blood Negative Urine Nitrite Negative Urine Bilirubin Negative Urine Urobilinogen 0.2 Ur Leukocyte Esterase Negative Home Medications Medication Instructions Recorded Atorvastatin Ca [Lipitor] 20 mg PO HS 09/22/15 metFORMIN HCL [Metformin ER 750 mg PO DAILY 09/22/15 Osmotic] Alendronate Sodium [Fosamax] 1 tab PO WEEKLY 06/14/19 Aspirin [ASA -] 81 mg PO DAILY 06/14/19 Zolpidem Tartrate [Ambien] 10 mg PO HS 06/14/19 Aspirin Coated [Ecotrin -] 81 mg PO DAILY #0 tablet.ec 08/16/19 Docusate Sodium [Colace -] 100 mg PO BID capsule 08/16/19 Lidocaine 5% Patch [Lidoderm -] 1 patch TP DAILY #30 patch 08/16/19 Lidocaine 5% Patch [Lidoderm Patch 1 patch TP DAILY #30 patch 08/16/19 -] Lidocaine Patch Removal [Lidoderm 1 each MC DAILY@2200 #30 each 08/16/19 Patch Removal] Metoprolol Succinate [Toprol XL -] 50 mg PO DAILY #30 tab.sr.24h 08/16/19 Polyethylene Glycol 3350 [Miralax 17 gm PO DAILY bottle 08/16/19 119 gm Btl -] Current Medications Generic Name Dose Route Start Last Admin Trade Name Freq PRN Reason Stop Dose Admin Acetaminophen 1,000 mg 10/19/19 16:15 Ofirmev Injection - IVPB 10/20/19 16:15 Q6H PRN PAIN LEVEL 6-10 Sodium Chloride 1,000 mls @ 42 mls/hr 10/19/19 16:00 Normal Saline - IV ASDIR MYRIAM Morphine Sulfate 1 mg 10/19/19 15:56 Morphine Sulfate IVPUSH 10/19/19 15:57 ONCE ONE ASSESSMENT AND PLAN: 84 Thai speaking Female h/o AFib (not on AC), T2DM, HTN, HLD, CAD ( stents 2002, 2003) presents to ED s/p fall last week, now with worsening sacral and LBP , pt. admitted for pain control and evaluation of fall to r/o syncopal cause. Low Back pain 2/2 acute on chronic L1/L2 fx CT scan noted, no acute changes from prev. in 07/2019, small paraspinal edema, will get MRI for further evaluation of ?epidural hematoma which was present on last scan IV Tylenol for pain control, morphine for severe breakthrough pain, give aggressive bowel regimen Meds reviewed: patient on Ambien, may contribute to fall risk Cannot obtain orthostatics due to severe LBP NSG consult: Neurology consult: Dr Lovett Fall 2/2 ?mechanical v.s. syncope endorses pt. non-compliant w/ rollator walker use in the house, also endorses she occasionally gets "dizzy" monitor pt. on telemetry for 1 night, if no significant events occur downgrade to regular floors cont. to Hold AC pending MRI, hold BP meds for now, give IVF as pt. appears clinically dry Pain control, and when stable PT evaluation for gait and transfer, also needs evaluation for VNS v.s. possible SNF placement as endorses a lot of difficulty caring for her in their apt. Cardiology consult Hyponatremia likely 2/2 volume depletion IVF w/ NS, do not correct Na more than 6-8/day Afib rate controlled, cont. BB as tolerated hold AC, monitor on Tele for ?Afib w/ RVR HTN hold BP meds for now other than BB CAD ( s/p stents) BB, statin, hold ASA pending MRI send A1c DVT ppx: SCD/TEDs for now Admit to tele
[2019-10-19] MEDS ORDERED: MORPHINE SULFATE 2 MG/ML VIAL ONE (16:36)
[2019-10-19] MEDS: MORPHINE SULFATE 2 MG/ML VIAL IVPUSH ONE ×2 (16:46)
[2019-10-19] MEDS: SODIUM CHLORIDE 1,000 ML IV SCH (16:46)
[2019-10-19] MEDS: MORPHINE SULFATE 2 MG/ML VIAL IVPUSH PRN (22:26)
[2019-10-19] MEDS: ATORVASTATIN CA 20 MG TABLET (FP) PO SCH (22:26)
[2019-10-19] MEDS: DOCUSATE SODIUM 100 MG CAPSULE (FP) PO SCH (22:26)
[2019-10-19] MEDS: INSULIN SLIDING SCALE (NOVOLOG) 1 VIAL SQ SCH (22:28)
[2019-10-20] MEDS: ACETAMINOPHEN 1000 MG/100 ML VIAL (NON FORMULARY) IVPB PRN ×2 (01:00→11:34)
[2019-10-20 01:45] VITALS: BMI 26.4
[2019-10-20] MEDS: INSULIN SLIDING SCALE (NOVOLOG) 1 VIAL SQ SCH ×4 (06:14→21:14)
[2019-10-20] MEDS: MORPHINE SULFATE 2 MG/ML VIAL IVPUSH PRN (06:18)
[2019-10-20 07:49] LABS: BASO % 1.2 % (0-2.0); EOS % 1.1 % (0-4.5); HEMATOCRIT 32.9 % (32.4-45.2); HEMOGLOBIN 11.5 GM/dL (10.7-15.3); LYMPH % 21.2 % (8-40); MCH 31.6 pg (25.7-33.7); MCHC 34.9 g/dl (32.0-36.0); MEAN CELL VOLUME 90.7 fl (80-96); MEAN PLT VOLUME 6.9 fl (7.5-11.1); MONO % 5.3 % (3.8-10.2); NEUT % 71.2 % (42.8-82.8); PLATELET COUNT 406 K/MM3 (134-434); RBC 3.63 M/mm3 (3.60-5.2); RDW 14.8 % (11.6-15.6); WHITE BLOOD COUNT 5.4 K/mm3 (4.0-10.0)
[2019-10-20 08:17] LABS: ALBUMIN 3.5 g/dl (3.4-5.0); BILIRUBIN,TOTAL 0.7 mg/dL (0.2-1); BLOOD UREA NITROGEN 17.6 mg/dL (7-18); CALCIUM 8.9 mg/dL (8.5-10.1); CREATININE 0.8 mg/dL (0.55-1.3); MAGNESIUM 2.4 mg/dL (1.8-2.4); PHOSPHOROUS 3.8 mg/dL (2.5-4.9); POTASSIUM 4.1 mmol/L (3.5-5.1)
--- NOTE | 2019-10-20 08:54 | CON.CARD ---
Consult Consult Specialty:: Cardiology Referred by:: Dr. 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 PMH: Multiple falls Compression fx 07/2019 after fall with Epidural Hematoma DM HTN HLD CAD s/p PCI / (details unclear) follows w/ Dr. E[place]a in [place]. Now admitted again with a fall and severe back pain, found to have L1 compression fracture. She has no recollection of how she fell. She denies CP/SOB or palps. TELE: AF with occasional rates into 120s, no sig pauses. - History Source History Provided By: Patient, Medical Record - Past Medical History Cardio/Vascular: Yes: CAD, HTN, Hyperlipdemia ...: No Endocrine: Yes: Diabetes Mellitus - Past Surgical History Past Surgical History: Yes: None - Alcohol/Substance Use Hx Alcohol Use: No History of Substance Use: reports: None - Smoking History Smoking history: Never smoked Have you smoked in the past 12 months: No - Social History ADL: Family Assistance Occupation: housewife History of Recent Travel: No Home Medications - Allergies Allergies/Adverse Reactions: Allergies Allergy/AdvReac Type Severity Reaction Status Date / Time ibuprofen Allergy Severe Verified 08/10/19 10:48 - Home Medications Home Medications: Ambulatory Orders Atorvastatin Ca [Lipitor] 20 mg PO HS 09/22/15 metFORMIN HCL [Metformin ER Osmotic] 750 mg PO DAILY 09/22/15 Alendronate Sodium [Fosamax] 1 tab PO WEEKLY 06/14/19 Aspirin [ASA -] 81 mg PO DAILY 06/14/19 Zolpidem Tartrate [Ambien] 10 mg PO HS 06/14/19 Aspirin Coated [Ecotrin -] 81 mg PO DAILY #0 tablet.ec 08/16/19 Docusate Sodium [Colace -] 100 mg PO BID capsule 08/16/19 Lidocaine 5% Patch [Lidoderm -] 1 patch TP DAILY #30 patch 08/16/19 Lidocaine 5% Patch [Lidoderm Patch -] 1 patch TP DAILY #30 patch 08/16/19 Lidocaine Patch Removal [Lidoderm Patch Removal] 1 each MC DAILY@2200 #30 each 08/16/19 Metoprolol Succinate [Toprol XL -] 50 mg PO DAILY #30 tab.sr.24h 08/16/19 Polyethylene Glycol 3350 [Miralax 119 gm Btl -] 17 gm PO DAILY bottle 08/16/19 Family Medical History Family History: Unremarkable Review of Systems Findings/Remarks: see HPI and ER records - Review of Systems Constitutional: reports: Other (back pain) Cardiovascular: reports: No Symptoms Respiratory: reports: No Symptoms Gastrointestinal: reports: No Symptoms Genitourinary: reports: No Symptoms Breasts: reports: No Symptoms Reported Musculoskeletal: reports: No Symptoms Integumentary: reports: No Symptoms Neurological: reports: Unsteady Gait Endocrine: reports: No Symptoms Hematology/Lymphatic: reports: No Symptoms Psychiatric: reports: No Symptoms - Risk Factors Known Risk Factors: Yes: Diabetes Mellitus, Hypercholesterolemia, Hypertension, Other (Known CAD) Vital Signs: Vital Signs Temperature 97.9 F 10/20/19 06:00 Pulse Rate 82 10/20/19 06:00 Respiratory Rate 18 10/20/19 06:00 Blood Pressure 126/76 10/20/19 06:00 O2 Sat by Pulse Oximetry (%) 96 10/20/19 01:58 Constitutional: Yes: No Distress, Calm Respiratory: Yes: CTA Bilaterally Gastrointestinal: Yes: Soft Cardiovascular: Yes: Pulse Irregular JVD: No Carotid Bruit: No PMI: Non-Displaced Heart Sounds: Yes: S1, S2 (irreg, no murmurs) Edema: No Peripheral Pulses WNL: Yes Neurological: Yes: Confusion - Other Data Labs, Other Data: CBC, BMP 10/20/19 07:15 10/20/19 07:15 INR, PTT INR 0.89 (0.83-1.09) 10/19/19 12:35 Troponin, BNP 10/19/19 10/19/19 12:35 16:42 Troponin I < 0.02 < 0.02 Troponin, BNP 10/19/19 10/19/19 12:35 16:42 Troponin I < 0.02 < 0.02 AF, 80s, NSST changes Echo: Report Reviewed (07/2019: EF 60%, dilated LA, Mild MR) Prior Cardiac Procedures: PTCA with Stent Ejection Fraction %: LVEF > or = 40 % Imaging - Results Cat Scan: Report Reviewed EKG: Image Reviewed (AF 80s, nsst changes) Assessment/Plan IMP: Recurrent falls Lumbar compression fractures with history of epidural hematoma (07/2019) Permanent AF CAD s/p remote PCI ( per prior history) DM HTN HLD REC: 1. Continue telemetry to assess rate control and exclude clinically significant pauses that may explain falls. Thus far unremarkable. 2. Continue Toprol Xl 50mg daily for now. 3. Hold ASA for now, resume when ok with Neurology and Neurosurgery. She is not a candidate for full AC given the documented history of multiple falls one of which recently resulted in an epidural hematoma. Risks of full AC >> potential benefits in this case. 4. Continue statin 5. PT evaluation prior to discharge. 6. Neurology and N-surgery evaluation pending.
--- NOTE | 2019-10-20 08:57 | EKG ---
Test Reason : Blood Pressure : / mmHG Vent. Rate : 089 BPM Atrial Rate : 122 BPM P-R Int : 000 ms QRS Dur : 078 ms QT Int : 396 ms P-R-T Axes : 000 059 019 degrees QTc Int : 481 ms ATRIAL FIBRILLATION ABNORMAL ECG WHEN COMPARED WITH ECG OF 10-AUG-2019 10:23, NONSPECIFIC T WAVE ABNORMALITY, IMPROVED IN ANTEROLATERAL LEADS QT HAS LENGTHENED Confirmed by SEPIDEH MAYO, JONATHAN ([id number]) on 10/20/2019 8:56:34 AM Referred By: Confirmed By:JONATHAN BUNN MD
--- NOTE | 2019-10-20 08:58 | CONSULT ---
Consult - text type - Consultation Consultation Note: Neurology CHIEF COMPLAINT: lower back pain s/p fall HISTORY OF PRESENT ILLNESS: 84 yo F PMH of AFib ( not on AC), DM, HTN, HLD, CAD ( stents 2002, 2003) presented for LBP s/p fall last week. Pt reported falling last week after using the bathroom. pt usually walks with a walker and did not use it when going to the bathroom at home. pt reported feeling dizzy and fell. After fall, pt has been having severe LBP and has been unable to walk. pt's has been caring for her in their apartment. pt has been using diapers as she is unable to walk to the bathroom. pt denied incontinence, stated she needs the diaper bc she cant walk. pt stated she gets these episodes more often and was recently hospitalized for a similar fall. Pt denied headache, CP, n/v. CT of cervical spine performed and demonstrated C4-C5, C5-C6 disc space narrowing, degenerative sclerosis and anterior spondylosis. CT of Thoracic spine reviewed and showed T9 level hemangioma w/o interval change since prior study of . CT of lumbar spine also reviewed and demonstrated L1 recent osteoporotic compression fracture. Sclerotic changes. Mild retropulsion, post cortical disruption. Mild paraspinal edema. L2 chronic compression fracture. Post retropulsion sclerotic changes. Head CT completed and demonstrated mild- moderate atrophy. MRI of Lumbar Spine completed and awaiting official report. NSGY consulted, will defer to them regarding need for surgical intervention. Patient was awake and alert and cooperative and did not appear to be writhing in pain but did seem uncomfortable. PAST MEDICAL HISTORY: see HPI PAST SURGICAL HISTORY: denies Family History: HTN Social History: Smoking: denies Alcohol:denies Drugs: denies REVIEW OF SYSTEMS CONSTITUTIONAL: Present: weakness Absent: fever, chills, diaphoresis, malaise, loss of appetite, weight change HEENT: Absent: rhinorrhea, nasal congestion, throat pain, throat swelling, difficulty swallowing, mouth swelling, ear pain, eye pain, visual changes CARDIOVASCULAR: Absent: chest pain, syncope, palpitations, irregular heart rate, lightheadedness , peripheral edema RESPIRATORY: Absent: cough, shortness of breath, dyspnea with exertion, orthopnea, wheezing, stridor, hemoptysis GASTROINTESTINAL: Absent: abdominal pain, abdominal distension, nausea, vomiting, diarrhea, constipation, melena, hematochezia GENITOURINARY: Absent: dysuria, frequency, urgency, hesitancy, hematuria, flank pain, genital pain MUSCULOSKELETAL: Present: back pain Absent: myalgia, arthralgia, joint swelling,neck pain SKIN: Absent: rash, itching, pallor NEUROLOGIC: Present; dizziness, unsteady gait Absent: headache, focal weakness or paresthesias, seizure, mental status changes, bladder or bowel incontinence PSYCHIATRIC: Absent: anxiety, depression, suicidal or homicidal ideation, hallucinations. Allergies ibuprofen Allergy (Severe, Verified 08/10/19 10:48) HOME MEDICATIONS: Home Medications Medication Instructions Recorded Atorvastatin Ca [Lipitor] 20 mg PO HS 09/22/15 metFORMIN HCL [Metformin ER 750 mg PO DAILY 09/22/15 Osmotic] Alendronate Sodium [Fosamax] 1 tab PO WEEKLY 06/14/19 Aspirin [ASA -] 81 mg PO DAILY 06/14/19 Zolpidem Tartrate [Ambien] 10 mg PO HS 06/14/19 Aspirin Coated [Ecotrin -] 81 mg PO DAILY #0 tablet.ec 08/16/19 Docusate Sodium [Colace -] 100 mg PO BID capsule 08/16/19 Lidocaine 5% Patch [Lidoderm -] 1 patch TP DAILY #30 patch 08/16/19 Lidocaine 5% Patch [Lidoderm Patch 1 patch TP DAILY #30 patch 08/16/19 -] Lidocaine Patch Removal [Lidoderm 1 each MC DAILY@2200 #30 each 08/16/19 Patch Removal] Metoprolol Succinate [Toprol XL -] 50 mg PO DAILY #30 tab.sr.24h 08/16/19 Polyethylene Glycol 3350 [Miralax 17 gm PO DAILY bottle 08/16/19 119 gm Btl -] Active Medications Acetaminophen (Ofirmev Injection -) 1,000 mg IVPB Q6H PRN PRN Reason: PAIN LEVEL 6-10 Stop: 10/20/19 16:15 Last Admin: 10/20/19 01:00 Dose: 1,000 mg Atorvastatin Calcium (Lipitor -) 20 mg PO HS [facility] Last Admin: 10/19/19 22:26 Dose: 20 mg Docusate Sodium (Colace -) 100 mg PO BID [facility] Last Admin: 10/19/19 22:26 Dose: 100 mg Sodium Chloride (Normal Saline -) 1,000 mls @ 42 mls/hr IV ASDIR [facility] Last Admin: 10/19/19 16:46 Dose: 42 mls/hr Insulin Aspart (Novolog Vial Sliding Scale -) 1 vial SQ ACHS [facility]; Protocol Last Admin: 10/20/19 06:14 Dose: Not Given Metoprolol Succinate (Toprol Xl -) 50 mg PO DAILY [facility] Morphine Sulfate (Morphine Sulfate) 1 mg IVPUSH Q6H PRN PRN Reason: PAIN LEVEL 7 - 10 Last Admin: 10/20/19 06:18 Dose: 1 mg Polyethylene Glycol (Miralax (For Daily Use) -) 17 gm PO DAILY [facility] PHYSICAL EXAMINATION Vital Signs Period Temp Pulse Resp BP Sys/Gutierres Pulse Ox Last 24 Hr 97.9 F-98.3 F 66-85 18-18 116-126/45-76 96-98 GENERAL: Awake, alert, and fully oriented, in no acute distress. HEAD: Normal with no signs of trauma. EYES: Pupils equal, round and reactive to light, extraocular movements intact EARS, NOSE, THROAT: nares patent, oropharynx clear without exudates. Moist mucous membranes. hard of hearing NECK: supple without lymphadenopathy, JVD, or masses. + hepatojugular LUNGS: Breath sounds equal, clear to auscultation bilaterally. No wheezes, and no crackles. No accessory muscle use. HEART: irregularly irregular, + S1 and S2 ABDOMEN: Soft, nontender, not distended, normoactive bowel sounds, no guarding MUSCULOSKELETAL: paraspinal tenderness and lumbar midline tenderness No CVA tenderness. UPPER EXTREMITIES: 2+ pulses, warm, well-perfused. No cyanosis. No clubbing. No peripheral edema. LOWER EXTREMITIES: 2+ pulses, warm, well-perfused. No calf tenderness. No peripheral edema. NEUROLOGICAL: Cranial nerves II-XII intact. Normal speech. 4/5 muscle strength b/l UE and LE SKIN: Warm, dry, normal turgor, no rashes or lesions noted, normal capillary refill. large ecchymosis of L buttock CBCD WBC 5.4 K/mm3 (4.0-10.0) 10/20/19 07:15 RBC 3.63 M/mm3 (3.60-5.2) 10/20/19 07:15 Hgb 11.5 GM/dL (10.7-15.3) 10/20/19 07:15 Hct 32.9 % (32.4-45.2) 10/20/19 07:15 MCV 90.7 fl (80-96) 10/20/19 07:15 MCHC 34.9 g/dl (32.0-36.0) 10/20/19 07:15 RDW 14.8 % (11.6-15.6) 10/20/19 07:15 Plt Count 406 K/MM3 (134-434) 10/20/19 07:15 MPV 6.9 fl (7.5-11.1) L 10/20/19 07:15 CMP Sodium 135 mmol/L (136-145) L 10/20/19 07:15 Potassium 4.1 mmol/L (3.5-5.1) 10/20/19 07:15 Chloride 104 mmol/L (98-107) 10/20/19 07:15 Carbon Dioxide 23 mmol/L (21-32) 10/20/19 07:15 Anion Gap 8 MMOL/L (8-16) 10/20/19 07:15 BUN 17.6 mg/dL (7-18) 10/20/19 07:15 Creatinine 0.8 mg/dL (0.55-1.3) 10/20/19 07:15 Random Glucose 108 mg/dL (74-106) H 10/20/19 07:15 Calcium 8.9 mg/dL (8.5-10.1) 10/20/19 07:15 Total Bilirubin 0.7 mg/dL (0.2-1) 10/20/19 07:15 AST 18 U/L (15-37) 10/20/19 07:15 ALT 16 U/L (13-61) 10/20/19 07:15 Alkaline Phosphatase 82 U/L (45-117) 10/20/19 07:15 Total Protein 7.0 g/dl (6.4-8.2) 10/20/19 07:15 Albumin 3.5 g/dl (3.4-5.0) 10/20/19 07:15 CARDIAC ENZYMES Creatine Kinase 63 U/L (26-192) 10/19/19 12:35 Troponin I < 0.02 ng/ml (0.00-0.05) 10/19/19 16:42 ASSESSMENT/PLAN: 84 yo F PMH of AFib ( not on AC), DM, HTN, HLD, CAD ( stents 2002, 2003) presented for LBP s/p fall last week. Pt reported falling last week after using the bathroom. pt usually walks with a walker and did not use it when going to the bathroom at home. pt reported feeling dizzy and fell. After fall, pt has been having severe LBP and has been unable to walk. pt's has been caring for her in their apartment. pt has been using diapers as she is unable to walk to the bathroom. pt denied incontinence, stated she needs the diaper bc she cant walk. pt stated she gets these episodes more often and was recently hospitalized for a similar fall. Pt denied headache, CP, n/v. CT of cervical spine performed and demonstrated C4-C5, C5-C6 disc space narrowing, degenerative sclerosis and anterior spondylosis. CT of Thoracic spine reviewed and showed T9 level hemangioma w/o interval change since prior study of . CT of lumbar spine also reviewed and demonstrated L1 recent osteoporotic compression fracture. Sclerotic changes. Mild retropulsion, post cortical disruption. Mild paraspinal edema. L2 chronic compression fracture. Post retropulsion sclerotic changes. Head CT completed and demonstrated mild- moderate atrophy. MRI of Lumbar Spine completed and awaiting official report. NSGY consulted, will defer to them regarding need for surgical intervention. Patient was awake and alert and cooperative and did not appear to be writhing in pain but did seem uncomfortable. continue pain management, monitor for any sedation and avoid overuse of pain medication. Physical therapy as tolerated, fall precautions, assistive device. Likely to require at least short-term rehabilitation.
[2019-10-20] MEDS: POLYETHYLENE GLYCOL 3350 119 GM BTL PO SCH (09:38)
[2019-10-20] MEDS: DOCUSATE SODIUM 100 MG CAPSULE (FP) PO SCH ×2 (09:38→21:14)
--- NOTE | 2019-10-20 11:57 | PN ---
Progress Note (short form) - Note Progress Note: NEUROSURGERY CONSULT DICTATED Chart reviewed History obtained at bedside Multiple recent falls some from dizziness other from mechanical causes c/o LBP and inability to ambulate. PE; AF, VSS CV- Irreg; Lungs- CTA B; Abd- benign; Ext- no sign of DVT CN- intact; Motor- 4/5 at least B UE/LE pain limited; Sensation- intact LT; DTR - hyporeflexic CT head- negative for bleed, stroke, fx C Spine CT- no fx or dislocation; DDD CT LS spine- acute L1 fx, subacute L2 and chronic L5 compression deformity LS MRI- acute L1 fx with mild retropulsion, subacute-chronic L2 fracture with some subsidence c/w July 2019 scan; paraspinal edema, L1-2 disc bulge; no marked canal stenosis Osteoporotic compression fx L1 and L2 TLSO brace for use whenever OOB for 3 months Pain meds If persistent pain consider consulting pain management or IR for possible vertebroplasty
--- NOTE | 2019-10-20 13:29 | CONS ---
DATE OF CONSULTATION: DATE OF DICTATION: 10/20/2019 REQUESTING PHYSICIAN: Teresa García MD TEAM ASSISTANT: Armani Chaparro MD, Neurosurgery. CHIEF COMPLAINT: Lower back pain, status post fracture. HISTORY OF PRESENT ILLNESS: Patient is an 84-year-old, right-handed female with history of hypertension, coronary artery disease, atrial fibrillation, not on anticoagulation, hypercholesterolemia, and diabetes, who has sustained multiple falls in the last few months. She had fallen initially because of tripping, but most recently fell a week ago because of dizziness in the bathroom. She usually walks with a walker, but does not use it consistently. Her stated that she was not able to walk and had to have her diaper changed because she could not get to the bathroom. She denies bowel or bladder incontinence, otherwise. She has no fever or chill. She has some subjective weakness, has not been using a walker as stated earlier. She has no current headache, or nausea, vomiting. PAST MEDICAL HISTORY: Significant for hypertension, coronary artery disease, status post stent placement, atrial fibrillation, hypercholesterolemia, diabetes, and lumbar fracture. CURRENT MEDICATIONS: Include Tylenol, Toprol XL, Colace, MiraLAX, Lipitor, insulin, and morphine. ALLERGIES: IBUPROFEN. SOCIAL HISTORY: She does not smoke or drink. She lives at home with her . She is retired. REVIEW OF SYSTEMS: Otherwise negative for major constitutional, head and neck, cardiovascular, pulmonary, gastrointestinal, genitourinary, endocrinological, neurological or psychological problem except for the above. PHYSICAL EXAMINATION: General: She is awake and alert. She is lying down in bed. She is slightly uncomfortable. Vital Signs: Temperature is 98, blood pressure is 108/54, with pulse rate 83. O2 saturation is 95% on room air. HEENT: Examination shows her to be normocephalic, atraumatic, anicteric. Neck: Supple. Coronary: Examination demonstrated irregular rhythm. Lungs: Clear bilaterally. Abdomen: Benign. Extremities: Examination shows no signs of DVT. Neurologic: She is awake and alert. She is mostly Ukrainian speaking. Her translated for her. Cranial nerves examination is intact 2 through 12. Motor examination shows at least 4/5 strength of the bilateral upper and lower extremities limited by pain. Sensory examination is intact to light touch. Deep tendon reflexes are hyporeflexive throughout. There is no pathological long-tract sign. Gait was not tested for above-stated reason. Back: Examination shows tenderness at the lumbosacral junction bilaterally. LABORATORY: Examination shows white blood cell count 5.4, hemoglobin is 11.5, INR is 0.89, PTT is 35.3, serum sodium is 135, and potassium is 4.1. BUN and creatinine are 17.6 and 0.8, respectively. Calcium is 8.9. LFTs are normal. Troponin is less than 0.02. CT scan of the head done yesterday demonstrated [id number] atrophy. There is no acute fracture or hematoma. CT scan of the cervical spine demonstrated C4-5, C5-6 degenerative disk space narrowing with endplate sclerosis. There is spondylosis and bridging osteophytes throughout. The spinal alignment is intact. There is no fracture or dislocation. CT scan of the lumbar spine demonstrated acute L1 osteoporotic compression fracture with superior endplate depression. There is mild retropulsion of the cortex. There is a subacute-chronic compression fracture of L2 vertebral body with loss of vertebral body height, which is slightly increased compared to the prior study. MRI examination of the lumbar spine demonstrated acute L1 vertebral fracture with superior endplate retropulsion and mild thecal sac impingement. There is L1-2 disk bulge. There is a subacute-chronic L2 compression fracture with further decrease in vertebral body height. There is paraspinal edema. There is a chronic L5 compression deformity. IMPRESSION: 1. Acute L1 and subacute-chronic L2 compression fracture with mild canal stenosis. 2. Osteoporosis. 3. Hypertension. 4. Coronary artery disease/atrial fibrillation. 5. Diabetes. RECOMMENDATIONS: Patient presents with dizziness and a fall at home. She had previously sustained a mechanical fall, after tripping on the floor, a couple months ago. She does not reliably use her walker, but should do so to prevent future falls. Her neurologic examination is nonfocal. Her examination is pain limited. Good pain control is important. Of course, gabapentin could be attempted and she is being started on 100 mg p.o. t.i.d. She also might have a degree of diabetic peripheral neuropathy, because of her underlying diabetes. The use of an external orthosis in terms of a custom-molded TLSO brace is recommended, whenever out of bed for the next 3 months. If her pain can be controlled adequately with conservative measures, she should consider a course of rehab, as well. If her pain persists, a Pain Management consultation or Interventional Radiology consultation could be obtained for consideration of vertebroplasty at L1 and possibly at L2. The procedure is complicated by the fact that she has underlying diffuse osteoporosis and she may develop adjacent-level fracture as well in the future. The above was discussed with the patient and her at bedside. No neurosurgical intervention is indicated nor recommended, at this time, given her medical history and advanced age. ARMANI CHAPARRO M.D. [id number] MTDMelanie
[2019-10-20] MEDS ORDERED: MORPHINE SULFATE 2 MG/ML VIAL IVPUSH PRN (15:30)
--- NOTE | 2019-10-20 15:54 | PN ---
Teaching Attending Note Name of Resident: Juan Roy ATTENDING PHYSICIAN STATEMENT I saw and evaluated the patient. I reviewed the resident's note and discussed the case with the resident. I agree with the resident's findings and plan as documented. SUBJECTIVE: no fever or chills. No N/V .cont to have lower back pain. has numbness and pain in feet and legs up to the knees which is chronic . Denies incontinence or saddle numbness. No weakness in legs but pain limits mobility OBJECTIVE: NAD, awake, alert, cooperative , MMM Cv; irreg irreg . No MRG Lungs: CTAB Ext: NO edema or erythema. Abd: soft, NT, ND, NL BS Ext: No edema or erythema Neuro of LE : RLE: hip flexion 5/5, knee flexion /extension 5/5, ankle dorsiflexion /plantar flexion 5/5 LLE: hip flexion 5/5, knee flexion /extension 5/5, ankle dorsiflexion /plantar flexion 5/5 Nl sensation to light touch on both lower extremities and in buttocks and perineal area Reflexes: 2+ knee jerk b/l , 0 ankle jerk b/l. Neg BAbibski's b/l. Rectal tone Nl. ASSESSMENT AND PLAN: 84 y/o lady with h/o Afib not on AC due to falls, CAD, HTN, HLD, DM II, multiple falls in the past and recent admission for a fall with resultant L2 Fx. She presented after a fall and was found to have acute L1 fx. 1- Fall mechanical Vs syncope ( ? r/o arrhythmias ) . - last admisiosn echo and CUS were done - will monitor on tele - EKG reviewed 2- Acute L [address]s and MRI reviewed. - pain control - add lidocaine patch - add oxy - PT - pain management consult - Customized TLSO brace might be difficult to get, but phone calls were done - hematoma seen last admission has resolved. 3- H/o A fib : Not on AC due to frequent falls and recent spinal hematoma - will resume her asa and plavix as hematoma has resolved - her pharmacy was called and patient is on both Antiplt - cont toprol 4- HTN : cont meds 5- PT eval . expect need for rehab
[2019-10-20] MEDS ORDERED: traZODone HCL 50 MG TABLET (FP) PO PRN (16:06)
[2019-10-20] MEDS ORDERED: PATIENT'S OWN MEDICATION (NON-FORMULARY) (Alendronate Sodium [Fosamax] 1 TAB) PO SCH (16:15)
[2019-10-20] MEDS ORDERED: MOMETASONE FUROATE TP SCH (16:15)
[2019-10-20] MEDS ORDERED: HYDROCHLOROTHIAZIDE 25 MG TABLET (FP) PO SCH (16:15)
--- NOTE | 2019-10-20 17:31 | PN ---
Physical Exam: SUBJECTIVE: Patient seen and examined at bedside. pt states that her back pain is improved. she denies CP and SOB . 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 HEAD: Normal with no signs of trauma. NECK: supple without lymphadenopathy, JVD, or masses. + hepatojugular LUNGS: Breath sounds equal, clear to auscultation bilaterally. No wheezes, and no crackles. No accessory muscle use. HEART: irregularly irregular, + S1 and S2 ABDOMEN: Soft, nontender, not distended, normoactive bowel sounds, no guarding MUSCULOSKELETAL: paraspinal tenderness and lumbar midline tenderness No CVA tenderness. UPPER EXTREMITIES: 2+ pulses, warm, well-perfused. No cyanosis. No clubbing. No peripheral edema. LOWER EXTREMITIES: 2+ pulses, warm, well-perfused. No calf tenderness. No peripheral edema. NEUROLOGICAL: Cranial nerves II-XII intact. Normal speech. 4/5 muscle strength b/l UE and LE SKIN: Warm, dry, normal turgor, no rashes or lesions noted, normal capillary refill. large ecchymosis of L buttock Laboratory Results 10/20/19 10/20/19 10/20/19 07:15 07:15 07:15 WBC 5.4 RBC 3.63 Hgb 11.5 Hct 32.9 MCV 90.7 MCH 31.6 MCHC 34.9 RDW 14.8 Plt Count 406 MPV 6.9 L Absolute Neuts (auto) 3.8 Neutrophils % 71.2 Lymphocytes % 21.2 D Monocytes % 5.3 Eosinophils % 1.1 Basophils % 1.2 Nucleated RBC % 0 Sodium 135 L Potassium 4.1 Chloride 104 Carbon Dioxide 23 Anion Gap 8 BUN 17.6 Creatinine 0.8 Est GFR (CKD-EPI)AfAm 78.47 Est GFR (CKD-EPI)NonAf 67.70 POC Glucometer Random Glucose 108 H Hemoglobin A1c % 6.0 Calcium 8.9 Phosphorus 3.8 Magnesium 2.4 Total Bilirubin 0.7 AST 18 ALT 16 Alkaline Phosphatase 82 Troponin I Total Protein 7.0 Albumin 3.5 Current Medications Amlodipine Besylate (Norvasc -) 10 mg PO DAILY [facility] Aspirin (Asa -) 81 mg PO DAILY [facility] Atorvastatin Calcium (Lipitor -) 20 mg PO HS [facility] Last Admin: 10/19/19 22:26 Dose: 20 mg Clopidogrel Bisulfate (Plavix -) 75 mg PO DAILY [facility] Docusate Sodium (Colace -) 100 mg PO BID [facility] Last Admin: 10/20/19 09:38 Dose: 100 mg Hydrochlorothiazide (Hctz -) 25 mg PO WEEKLY [facility] Sodium Chloride (Normal Saline -) 1,000 mls @ 42 mls/hr IV ASDIR [facility] Last Admin: 10/19/19 16:46 Dose: 42 mls/hr Insulin Aspart (Novolog Vial Sliding Scale -) 1 vial SQ ACHS [facility]; Protocol Last Admin: 10/20/19 11:31 Dose: Not Given Isosorbide Mononitrate (Imdur -) 30 mg PO DAILY [facility] Lidocaine (Lidoderm Patch -) 1 patch TP DAILY [facility] Losartan Potassium (Cozaar -) 100 mg PO DAILY [facility] Magnesium Oxide (Mag-Ox -) 400 mg PO DAILY [facility] Metoprolol Succinate (Toprol Xl -) 50 mg PO DAILY [facility] Last Admin: 10/20/19 09:38 Dose: 50 mg Miscellaneous (Lidoderm Patch Removal) 1 each MC DAILY@2200 [facility] Non-Formulary Medication (Mometasone Furoate [Mometasone Furoate]) 1 applic TP ASDIR [facility] Pacpi-5-Mpnx Ethyl Esters (Lovaza -) 1 gm PO BID [facility] Oxycodone HCl (Roxicodone -) 5 mg PO Q6H PRN PRN Reason: PAIN LEVEL 7 - 10 Polyethylene Glycol (Miralax (For Daily Use) -) 17 gm PO DAILY [facility] Last Admin: 10/20/19 09:38 Dose: 17 gm Trazodone HCl (Desyrel -) 50 mg PO HS PRN PRN Reason: INSOMNIA CT Lumbar spine: Impression L1. Recent, acute osteoporotic compression fractures involving the superior endplate of L1. Sclerotic changes are noted in compressed L1 vertebral body. Mild retropulsion, posterior cortical disruption, encroaching on the anterior epidural space. The vertical height of compressed L2 vertebral body 14 mm, versus 19 mm on MRI of lumbosacral spine August 14, 2019. Mild paraspinal edema noted. L2. Chronic compression fracture of L2 vertebral body with significant loss of vertical height posterior retropulsion. Sclerotic changes are noted in the compressed L2 vertebral body. Please refer to the MRI of the lumbosacral spine August 14, 2016. MR Lumbar spine: L1. Acute osteoporotic compression fracture of L1 vertebral body with retropulsion of the posterior cortex encroaching on the ventral subarachnoid space. T1 low signal intensity of the bone marrow with bone marrow edema on the T2 STIR WI. L1-L2 increased intervertebral disc space height. T2 hyperintensity noted in the superior aspect of the intervertebral disc space beneath the compressed inferior endplate of L1 representing fluid, edema or vacuum phenomena within the disc material. Mild paraspinal edema. L2. Chronic compression fracture of L2 vertebral body with bone marrow edema. Mildly retropulsion of the posterior cortex of compressed L2 vertebral body. Resolved epidural hemorrhage. ASSESSMENT/PLAN: 84 yo F PMH of AFib ( not on AC), DM, HTN, HLD, CAD ( stents 2002, 2003) presents for LBP s/p fall last week. pt is admitted for acute L1 Compression Fracture Low Back pain 2/2 L1 compression fracture - CT scan above. MRI reviewed - Neurosurgery consult, Dr. Wells. Will attempt to get custom TLSO brace - c/w tylenol, lidoderm patch, oxycodone 5 mg for breakthrough pain - incentive spirometry -PT Fall 2/2 pre-syncope - r/o cardiac events - continue cardiac monitoring -EKG reviewed, Afib , no ST changes - Echo recently in july reviewed, EF 55-60 & . recent carotid u/s done without significant stenosis - cardio consult , Dr. Ceron - unable to perform orthostatics 2/2 pain - trop negative - UA negative pt home meds include ambien, will DC Hyponatremia -improving, continue to monitor - gentle hydration Common bile duct dilation -TTP on initial encounter, MRI shows CBD dilation of 1.3 cm. pending RUQ u/s Afib - rate controled - c.w metoprolol HTN - c/.w metoprolol CAD ( s/p stents) - c/w home plavix, asa, statin - asa and plavix resumed as prior spinal hematoma resolved. DVT ppx: SCDs pt lives at home with who is primary sustainability project coordinator, social work appreciated to begin conversations regarding senior living facility Dispo: Tele Visit type - Emergency Visit Emergency Visit: No - New Patient This patient is new to me today: No - Critical Care Critical Care patient: No - Discharge Referral Referred to [facility] Med P.C.: No ATTENDING PHYSICIAN STATEMENT I saw and evaluated the patient. I reviewed the resident's note and discussed the case with the resident. I agree with the resident's findings and plan as documented. SUBJECTIVE: OBJECTIVE: ASSESSMENT AND PLAN:
[2019-10-20] MEDS: SODIUM CHLORIDE 1,000 ML IV SCH (17:34)
[2019-10-20] MEDS ORDERED: PT OWN MED DRAWER 7, Y5N ONE (20:55)
[2019-10-20] MEDS: LIDOCAINE PATCH REMOVAL MC SCH (21:14)
[2019-10-20] MEDS: ATORVASTATIN CA 20 MG TABLET (FP) PO SCH (21:14)
[2019-10-20] MEDS: oxyCODONE HCL 5 MG TABLET PO PRN (21:15)
[2019-10-20] MEDS: OMEGA-3 ACID ETHYL ESTERS (FATTY-ACIDS) 1 GM CAPSULE (FP) PO SCH (21:52)
[2019-10-20] MEDS ORDERED: ICOSAPENT ETHYL PO SCH (22:00)
[2019-10-21] MEDS: INSULIN SLIDING SCALE (NOVOLOG) 1 VIAL SQ SCH ×4 (06:00→21:59)
[2019-10-21 06:30] LABS: HEMATOCRIT 34.3 % (32.4-45.2); MCH 31.6 pg (25.7-33.7); MCHC 34.8 g/dl (32.0-36.0); MEAN CELL VOLUME 90.8 fl (80-96); MEAN PLT VOLUME 7.1 fl (7.5-11.1); PLATELET COUNT 445 K/MM3 (134-434); RBC 3.78 M/mm3 (3.60-5.2); RDW 15.1 % (11.6-15.6); WHITE BLOOD COUNT 6.1 K/mm3 (4.0-10.0)
[2019-10-21 08:02] LABS: ALBUMIN 3.8 g/dl (3.4-5.0); BILIRUBIN,TOTAL 0.8 mg/dL (0.2-1); BLOOD UREA NITROGEN 15.2 mg/dL (7-18); CALCIUM 9.3 mg/dL (8.5-10.1); CREATININE 0.7 mg/dL (0.55-1.3); POTASSIUM 4.2 mmol/L (3.5-5.1); TOT PROT 7.2 g/dl (6.4-8.2)
[2019-10-21] MEDS ORDERED: PT OWN MED DRAWER 7, Y5N ONE ×2 (08:34→21:52)
[2019-10-21] MEDS: oxyCODONE HCL 5 MG TABLET PO PRN ×2 (08:43→15:52)
--- NOTE | 2019-10-21 09:34 | PN ---
Progress Note (short form) - Note Progress Note: NEUROSURGERY at bedside, wants her eventually in [place] closer to their family members Multiple recent falls some from dizziness; other from mechanical causes c/o LBP and inability to ambulate. PE: AF, VSS CV- Irreg; Lungs- CTA B; Abd- benign; Ext- no sign of DVT CN- intact; Motor- 4/5 at least B UE/LE pain limited; Sensation- intact LT; DTR - hyporeflexic CT head- negative for bleed, stroke, fx C Spine CT- no fx or dislocation; DDD CT LS spine- acute L1 fx, subacute L2 and chronic L5 compression deformity LS MRI- acute L1 fx with mild retropulsion, subacute-chronic L2 fracture with some further subsidence c/w July 2019 scan; paraspinal edema, L1-2 disc bulge; no marked canal stenosis Osteoporotic compression fx L1 and L2 TLSO brace for use whenever OOB for 3 months, need custom molded brace to better follow her kyphotic contour and alignment for optimal immobilization Pain meds f/u LS spine x-rays in 2-3 weeks to follow alignment, some further L1 subsidence is expected neurontin 100 mg tid If persistent pain consider consulting pain management or IR for possible vertebroplasty Care d/w medical team yesterday on various occasions
--- NOTE | 2019-10-21 09:53 | PN ---
Progress Note (short form) - Note Progress Note: s: no cp sob palps dizzy Current Medications Generic Name Dose Route Start Last Admin Trade Name Freq PRN Reason Stop Dose Admin Amlodipine Besylate 10 mg 10/21/19 10:00 Norvasc - PO DAILY [facility] Aspirin 81 mg 10/21/19 10:00 Asa - PO DAILY [facility] Atorvastatin Calcium 20 mg 10/19/19 22:00 10/20/19 21:14 Lipitor - PO 20 mg HS [facility] Administration Clopidogrel Bisulfate 75 mg 10/21/19 10:00 Plavix - PO DAILY [facility] Docusate Sodium 100 mg 10/19/19 22:00 10/20/19 21:14 Colace - PO 100 mg BID [facility] Administration Gabapentin 100 mg 10/21/19 14:00 Neurontin - PO TID [facility] Hydrochlorothiazide 25 mg 10/20/19 16:15 Hctz - PO WEEKLY [facility] Insulin Aspart 1 vial 10/19/19 22:00 10/21/19 06:00 Novolog Vial Sliding Scale - SQ Not Given ACHS [facility] Protocol Isosorbide Mononitrate 30 mg 10/21/19 10:00 Imdur - PO DAILY [facility] Lidocaine 1 patch 10/21/19 10:00 Lidoderm Patch - TP DAILY [facility] Losartan Potassium 100 mg 10/21/19 10:00 Cozaar - PO DAILY [facility] Magnesium Oxide 400 mg 10/21/19 10:00 Mag-Ox - PO DAILY [facility] Metoprolol Succinate 50 mg 10/20/19 10:00 10/20/19 09:38 Toprol Xl - PO 50 mg DAILY [facility] Administration Miscellaneous 1 each 10/20/19 22:00 10/20/19 21:14 Lidoderm Patch Removal MC Not Given DAILY@2200 [facility] Non-Formulary Medication 1 applic 10/20/19 16:15 Mometasone Furoate [Mometasone Furoate] TP ASDIR [facility] [id number] Ethyl Esters 1 gm 10/20/19 22:00 10/20/19 21:52 Lovaza - PO 1 gm BID [facility] Administration Oxycodone HCl 5 mg 10/20/19 19:00 10/21/19 08:43 Roxicodone - PO 5 mg Q6H PRN Administration PAIN LEVEL 7 - 10 Polyethylene Glycol 17 gm 10/20/19 10:00 10/20/19 09:38 Miralax (For Daily Use) - PO 17 gm DAILY [facility] Administration Trazodone HCl 50 mg 10/20/19 16:06 Desyrel - PO HS PRN INSOMNIA Vital Signs Period Temp Pulse Resp BP Sys/Gutierres Pulse Ox Last 24 Hr 98 F-99.0 F 69-97 16- 108-139/54-85 95 Constitutional: Yes: No Distress, Calm Respiratory: Yes: CTA Bilaterally Gastrointestinal: Yes: Soft Cardiovascular: Yes: Pulse Irregular JVD: No Carotid Bruit: No PMI: Non-Displaced Heart Sounds: Yes: S1, S2 (irreg, no murmurs) Edema: No Peripheral Pulses WNL: Yes Neurological: Yes: Confusion CBC, BMP 10/21/19 05:10 10/21/19 05:10 AF, 80s, NSST changes Echo: Report Reviewed (07/2019: EF 60%, dilated LA, Mild MR) Prior Cardiac Procedures: PTCA with Stent Ejection Fraction %: LVEF > or = 40 % tele: af, rate acceptable Imaging - Results Cat Scan: Report Reviewed EKG: Image Reviewed (AF 80s, nsst changes) Assessment/Plan IMP: Recurrent falls Lumbar compression fractures with history of epidural hematoma (07/2019) Permanent AF CAD s/p remote PCI ( per prior history) DM HTN HLD REC: 1. Tele benign, afib with acceptable overall rate control 2. Continue Toprol Xl 50mg daily 3. Hold ASA for now, resume when ok with Neurology and Neurosurgery. She is not a candidate for full AC given the documented history of multiple falls one of which recently resulted in an epidural hematoma. Risks of full AC >> potential benefits in this case. 4. Continue statin 5. PT evaluation prior to discharge. 6. Neurology and N-surgery evaluation pending. can dc tele
[2019-10-21] MEDS ORDERED: PATIENT'S OWN MEDICATION (NON-FORMULARY) (Losartan Potassium [Losartan Potassium] 100 MG) PO SCH (10:00)
[2019-10-21] MEDS ORDERED: PATIENT'S OWN MEDICATION (NON-FORMULARY) (Magnesium Oxide [Magnesium Oxide] 400 MG) PO SCH (10:00)
[2019-10-21] MEDS: CLOPIDOGREL BISULFATE 75 MG TABLET (FP) PO SCH (10:01)
[2019-10-21] MEDS: DOCUSATE SODIUM 100 MG CAPSULE (FP) PO SCH ×2 (10:02→21:58)
[2019-10-21] MEDS: MAGNESIUM OXIDE 400 MG TABLET (FP) PO SCH (10:02)
[2019-10-21] MEDS: amLODIPine BESYLATE 10 MG TABLET (FP) PO SCH (10:02)
[2019-10-21] MEDS: ISOSORBIDE MONONITRATE 30 MG TAB.SR.24H (FP) PO SCH (10:02)
[2019-10-21] MEDS: LOSARTAN POTASSIUM 50 MG TABLET (FP) PO SCH (10:02)
[2019-10-21] MEDS: ASPIRIN 81 MG CHEWABLE TABLETS PO SCH (10:02)
[2019-10-21] MEDS: LIDOCAINE 5% TOPICAL PATCH TP SCH (10:03)
[2019-10-21] MEDS: OMEGA-3 ACID ETHYL ESTERS (FATTY-ACIDS) 1 GM CAPSULE (FP) PO SCH ×2 (10:03→21:58)
[2019-10-21] MEDS: POLYETHYLENE GLYCOL 3350 119 GM BTL PO SCH (10:04)
[2019-10-21] MEDS: GABAPENTIN 100 MG CAPSULE PO SCH ×2 (13:12→21:58)
--- NOTE | 2019-10-21 14:39 | PN ---
Teaching Attending Note Name of Resident: Teresa García ATTENDING PHYSICIAN STATEMENT I saw and evaluated the patient. I reviewed the resident's note and discussed the case with the resident. I agree with the resident's findings and plan as documented. SUBJECTIVE: no fever or chills. no palpitations . lower back pain is better . OBJECTIVE: NAD, awake, alert, cooperative , MMM Cv; irreg irreg . No MRG Lungs: CTAB Ext: NO edema or erythema. Abd: soft, NT, ND, NL BS. Ext: No edema or erythema Neuro of LE : RLE: hip flexion 5/5, knee flexion /extension 5/5, ankle dorsiflexion /plantar flexion 5/5 LLE: hip flexion 5/5, knee flexion /extension 5/5, ankle dorsiflexion /plantar flexion 5/5 Nl sensation to light touch on both lower extremities. Reflexes: 2+ knee jerk b/l skin : bruise on R buttock ASSESSMENT AND PLAN: 84 y/o lady with h/o Afib not on AC due to falls, CAD, HTN, HLD, DM II, multiple falls in the past and recent admission for a fall with resultant L2 Fx. She presented after a fall and was found to have acute L1 fx. 1- Fall mechanical Vs syncope. - Cont to monitor on tele 2- Acute L 1 Fx. - cont lidocaine patch. oxy, and add standing tylenol - PT - pain management consult - Trying to get TLSO brace 3- H/o A fib : Not on AC due to frequent falls and recent spinal hematoma - cont asa and plavix as spinal hematoma has resolved - cont toprol - tele reviewed . short episodes of tachy 4- HTN : cont meds 5- Rehab placement pending
--- NOTE | 2019-10-21 15:42 | PN ---
Physical Exam: SUBJECTIVE: Patient seen and examined at bedside. [employer] service investigator [id number] used. pt states that pain medication is helping. OBJECTIVE: Vital Signs Period Temp Pulse Resp BP Sys/Gutierres Pulse Ox Last 24 Hr 98.0 F-98.5 F 82-97 16-20 92-139/44-85 95-95 GENERAL: Awake, alert, and oriented, in no acute distress. HEAD: Normal with no signs of trauma. NECK: supple without lymphadenopathy, JVD, or masses. + hepatojugular LUNGS: Breath sounds equal, clear to auscultation bilaterally. No wheezes, and no crackles. No accessory muscle use. HEART: irregularly irregular, + S1 and S2 ABDOMEN: Soft, nontender, not distended, normoactive bowel sounds, no guarding MUSCULOSKELETAL: paraspinal tenderness and lumbar midline tenderness No CVA tenderness. UPPER EXTREMITIES: 2+ pulses, warm, well-perfused. No cyanosis. No clubbing. No peripheral edema. LOWER EXTREMITIES: 2+ pulses, warm, well-perfused. No calf tenderness. No peripheral edema. NEUROLOGICAL: Cranial nerves II-XII intact. Normal speech. 4/5 muscle strength b/l UE and LE SKIN: Warm, dry, normal turgor, no rashes or lesions noted, normal capillary refill. large ecchymosis of L buttock Laboratory Last Values WBC 6.1 K/mm3 (4.0-10.0) 10/21/19 05:10 RBC 3.78 M/mm3 (3.60-5.2) 10/21/19 05:10 Hgb 12.0 GM/dL (10.7-15.3) 10/21/19 05:10 Hct 34.3 % (32.4-45.2) 10/21/19 05:10 MCV 90.8 fl (80-96) 10/21/19 05:10 MCH 31.6 pg (25.7-33.7) 10/21/19 05:10 MCHC 34.8 g/dl (32.0-36.0) 10/21/19 05:10 RDW 15.1 % (11.6-15.6) 10/21/19 05:10 Plt Count 445 K/MM3 (134-434) H 10/21/19 05:10 MPV 7.1 fl (7.5-11.1) L 10/21/19 05:10 Absolute Neuts (auto) 3.8 K/mm3 (1.5-8.0) 10/20/19 07:15 Neutrophils % 71.2 % (42.8-82.8) 10/20/19 07:15 Lymphocytes % 21.2 % (8-40) D 10/20/19 07:15 Monocytes % 5.3 % (3.8-10.2) 10/20/19 07:15 Eosinophils % 1.1 % (0-4.5) 10/20/19 07:15 Basophils % 1.2 % (0-2.0) 10/20/19 07:15 Nucleated RBC % 0 % (0-0) 10/20/19 07:15 PT with INR 10.50 SEC (9.7-13.0) 10/19/19 12:35 INR 0.89 (0.83-1.09) 10/19/19 12:35 PTT (Actin FS) 35.3 SECONDS (25.2-36.5) 10/19/19 12:35 Sodium 134 mmol/L (136-145) L 10/21/19 05:10 Potassium 4.2 mmol/L (3.5-5.1) 10/21/19 05:10 Chloride 103 mmol/L (98-107) 10/21/19 05:10 Carbon Dioxide 22 mmol/L (21-32) 10/21/19 05:10 Anion Gap 8 MMOL/L (8-16) 10/21/19 05:10 BUN 15.2 mg/dL (7-18) 10/21/19 05:10 Creatinine 0.7 mg/dL (0.55-1.3) 10/21/19 05:10 Est GFR (CKD-EPI)AfAm 92.21 10/21/19 05:10 Est GFR (CKD-EPI)NonAf 79.56 10/21/19 05:10 POC Glucometer 130 UNITS (80-120) 10/21/19 11:37 Random Glucose 119 mg/dL (74-106) H 10/21/19 05:10 Hemoglobin A1c % 6.0 % (4.2-6.3) 10/20/19 07:15 Calcium 9.3 mg/dL (8.5-10.1) 10/21/19 05:10 Phosphorus 3.8 mg/dL (2.5-4.9) 10/20/19 07:15 Magnesium 2.4 mg/dL (1.8-2.4) 10/20/19 07:15 Total Bilirubin 0.8 mg/dL (0.2-1) 10/21/19 05:10 AST 20 U/L (15-37) 10/21/19 05:10 ALT 17 U/L (13-61) 10/21/19 05:10 Alkaline Phosphatase 87 U/L (45-117) 10/21/19 05:10 Creatine Kinase 63 U/L (26-192) 10/19/19 12:35 Troponin I < 0.02 ng/ml (0.00-0.05) 10/19/19 16:42 Total Protein 7.2 g/dl (6.4-8.2) 10/21/19 05:10 Albumin 3.8 g/dl (3.4-5.0) 10/21/19 05:10 Vitamin B12 365 pg/ml (193-986) 10/20/19 07:15 Vitamin D Level 17.1 ng/mL (30-100) L 10/20/19 18:25 Urine Color Yellow 10/19/19 14:20 Urine Appearance Clear 10/19/19 14:20 Urine pH 7.0 (5.0-8.0) 10/19/19 14:20 Ur Specific [place] 1.010 (1.010-1.035) 10/19/19 14:20 Urine Protein Negative (NEGATIVE) 10/19/19 14:20 Urine Glucose (UA) Negative (NEGATIVE) 10/19/19 14:20 Urine Ketones Negative (NEGATIVE) 10/19/19 14:20 Urine Blood Negative (NEGATIVE) 10/19/19 14:20 Urine Nitrite Negative (NEGATIVE) 10/19/19 14:20 Urine Bilirubin Negative (NEGATIVE) 10/19/19 14:20 Urine Urobilinogen 0.2 mg/dL (0.2-1.0) 10/19/19 14:20 Ur Leukocyte Esterase Negative (NEGATIVE) 10/19/19 14:20 RPR Titer Nonreactive (NONREACTIVE) 10/21/19 05:10 Current Medications Acetaminophen (Tylenol -) 650 mg PO Q6HPO [facility] Amlodipine Besylate (Norvasc -) 10 mg PO DAILY [facility] Last Admin: 10/21/19 10:02 Dose: 10 mg Aspirin (Asa -) 81 mg PO DAILY [facility] Last Admin: 10/21/19 10:02 Dose: 81 mg Atorvastatin Calcium (Lipitor -) 20 mg PO HS [facility] Last Admin: 10/20/19 21:14 Dose: 20 mg Cholecalciferol (Vitamin D3 -) 800 unit PO DAILY [facility] Clopidogrel Bisulfate (Plavix -) 75 mg PO DAILY [facility] Last Admin: 10/21/19 10:01 Dose: 75 mg Docusate Sodium (Colace -) 100 mg PO BID [facility] Last Admin: 10/21/19 10:02 Dose: 100 mg Gabapentin (Neurontin -) 100 mg PO TID [facility] Last Admin: 10/21/19 13:12 Dose: 100 mg Insulin Aspart (Novolog Vial Sliding Scale -) 1 vial SQ ACHS [facility]; Protocol Last Admin: 10/21/19 11:38 Dose: Not Given Isosorbide Mononitrate (Imdur -) 30 mg PO DAILY [facility] Last Admin: 10/21/19 10:02 Dose: 30 mg Lidocaine (Lidoderm Patch -) 1 patch TP DAILY [facility] Last Admin: 10/21/19 10:03 Dose: 1 patch Losartan Potassium (Cozaar -) 100 mg PO DAILY [facility] Last Admin: 10/21/19 10:02 Dose: 100 mg Magnesium Oxide (Mag-Ox -) 400 mg PO DAILY [facility] Last Admin: 10/21/19 10:02 Dose: 400 mg Metoprolol Succinate (Toprol Xl -) 50 mg PO DAILY [facility] Last Admin: 10/21/19 10:02 Dose: 50 mg Miscellaneous (Lidoderm Patch Removal) 1 each [facility] DAILY@2200 [facility] Last Admin: 10/20/19 21:14 Dose: Not Given Non-Formulary Medication (Mometasone Furoate [Mometasone Furoate]) 1 applic TP ASDIR [facility] Plvue-4-Dzgg Ethyl Esters (Lovaza -) 1 gm PO BID [facility] Last Admin: 10/21/19 10:03 Dose: 1 gm Oxycodone HCl (Roxicodone -) 5 mg PO Q6H PRN PRN Reason: PAIN LEVEL 7 - 10 Last Admin: 10/21/19 08:43 Dose: 5 mg Polyethylene Glycol (Miralax (For Daily Use) -) 17 gm PO DAILY [facility] Last Admin: 10/21/19 10:04 Dose: 17 gm Trazodone HCl (Desyrel -) 50 mg PO HS PRN PRN Reason: INSOMNIA CT Lumbar spine: Impression L1. Recent, acute osteoporotic compression fractures involving the superior endplate of L1. Sclerotic changes are noted in compressed L1 vertebral body. Mild retropulsion, posterior cortical disruption, encroaching on the anterior epidural space. The vertical height of compressed L2 vertebral body 14 mm, versus 19 mm on MRI of lumbosacral spine August 14, 2019. Mild paraspinal edema noted. L2. Chronic compression fracture of L2 vertebral body with significant loss of vertical height posterior retropulsion. Sclerotic changes are noted in the compressed L2 vertebral body. Please refer to the MRI of the lumbosacral spine August 14, 2016. MR Lumbar spine: L1. Acute osteoporotic compression fracture of L1 vertebral body with retropulsion of the posterior cortex encroaching on the ventral subarachnoid space. T1 low signal intensity of the bone marrow with bone marrow edema on the T2 STIR WI. L1-L2 increased intervertebral disc space height. T2 hyperintensity noted in the superior aspect of the intervertebral disc space beneath the compressed inferior endplate of L1 representing fluid, edema or vacuum phenomena within the disc material. Mild paraspinal edema. L2. Chronic compression fracture of L2 vertebral body with bone marrow edema. Mildly retropulsion of the posterior cortex of compressed L2 vertebral body. Resolved epidural hemorrhage. ASSESSMENT/PLAN: 84 yo F PMH of AFib ( not on AC), DM, HTN, HLD, CAD ( stents 2002, 2003) presents for LBP s/p fall last week. pt is admitted for acute L1 Compression Fracture Low Back pain 2/2 L1 compression fracture - CT scan above. MRI reviewed - Neurosurgery consult, Dr. Wells. Will attempt to get custom TLSO brace . will need to f/u outpt for brace - c/w tylenol, lidoderm patch, oxycodone 5 mg for breakthrough pain - incentive spirometry -PT Fall 2/2 pre-syncope - r/o cardiac events - continue cardiac monitoring -EKG reviewed, Afib , no ST changes - Echo recently in july reviewed, EF 55-60 & . recent carotid u/s done without significant stenosis - cardio consult , Dr. Francescone - unable to perform orthostatics 2/2 pain - trop negative - UA negative pt home meds include ambien, will DC Hyponatremia -improving Common bile duct dilation -TTP on initial encounter, MRI shows CBD dilation of 1.3 cm. - RUQ u/s finding above. no leukocytosis or fevers. pt should f/u findings outpt Afib - rate controled - c.w metoprolol HTN - c/.w metoprolol CAD ( s/p stents) - c/w home plavix, asa, statin - asa and plavix resumed as prior spinal hematoma resolved. Vitamin D Def - will give daily V D DVT ppx: SCDs pt lives at home with who is primary breaker oiler, social work appreciated to begin conversations regarding intermediate facility. Family wants patient to go to facility in [place] Dispo: Tele Visit type - Emergency Visit Emergency Visit: No - New Patient This patient is new to me today: No - Critical Care Critical Care patient: No - Discharge Referral Referred to [facility] Med P.C.: No ATTENDING PHYSICIAN STATEMENT I saw and evaluated the patient. I reviewed the resident's note and discussed the case with the resident. I agree with the resident's findings and plan as documented. SUBJECTIVE: OBJECTIVE: ASSESSMENT AND PLAN:
[2019-10-21] MEDS: ACETAMINOPHEN 325 MG TABLET (FP) PO SCH (19:03)
[2019-10-21] MEDS: ATORVASTATIN CA 20 MG TABLET (FP) PO SCH (21:58)
[2019-10-21] MEDS: LIDOCAINE PATCH REMOVAL MC SCH (21:59)
[2019-10-22] MEDS: HEPARIN NA (PORCINE) 5,000 UNITS/ML 1ML VIAL SQ SCH ×3 (05:46→21:30)
[2019-10-22] MEDS: GABAPENTIN 100 MG CAPSULE PO SCH ×3 (05:46→21:30)
[2019-10-22] MEDS: ACETAMINOPHEN 325 MG TABLET (FP) PO SCH ×4 (05:46→18:20)
[2019-10-22] MEDS: INSULIN SLIDING SCALE (NOVOLOG) 1 VIAL SQ SCH ×3 (06:03→17:29)
--- NOTE | 2019-10-22 09:33 | PN ---
Progress Note (short form) - Note Progress Note: s: no cp sob palps dizzy Current Medications Generic Name Dose Route Start Last Admin Trade Name Freq PRN Reason Stop Dose Admin Acetaminophen 650 mg 10/21/19 18:00 10/22/19 05:46 Tylenol - PO 650 mg Q6HPO [facility] Administration Amlodipine Besylate 10 mg 10/21/19 10:00 10/21/19 10:02 Norvasc - PO 10 mg DAILY [facility] Administration Aspirin 81 mg 10/21/19 10:00 10/21/19 10:02 Asa - PO 81 mg DAILY [facility] Administration Atorvastatin Calcium 20 mg 10/19/19 22:00 10/21/19 21:58 Lipitor - PO 20 mg HS [facility] Administration Cholecalciferol 800 unit 10/22/19 10:00 Vitamin D3 - PO DAILY [facility] Clopidogrel Bisulfate 75 mg 10/21/19 10:00 10/21/19 10:01 Plavix - PO 75 mg DAILY [facility] Administration Docusate Sodium 100 mg 10/19/19 22:00 10/21/19 21:58 Colace - PO 100 mg BID [facility] Administration Gabapentin 100 mg 10/21/19 14:00 10/22/19 05:46 Neurontin - PO 100 mg TID [facility] Administration Heparin Sodium (Porcine) 5,000 unit 10/22/19 06:00 10/22/19 05:46 Heparin - SQ 5,000 unit TID [facility] Administration Insulin Aspart 1 vial 10/19/19 22:00 10/22/19 06:03 Novolog Vial Sliding Scale - SQ Not Given ACHS [facility] Protocol Isosorbide Mononitrate 30 mg 10/21/19 10:00 10/21/19 10:02 Imdur - PO 30 mg DAILY [facility] Administration Lidocaine 1 patch 10/21/19 10:00 10/21/19 10:03 Lidoderm Patch - TP 1 patch DAILY [facility] Administration Losartan Potassium 100 mg 10/21/19 10:00 10/21/19 10:02 Cozaar - PO 100 mg DAILY [facility] Administration Magnesium Oxide 400 mg 10/21/19 10:00 10/21/19 10:02 Mag-Ox - PO 400 mg DAILY [facility] Administration Metoprolol Succinate 50 mg 10/20/19 10:00 10/21/19 10:02 Toprol Xl - PO 50 mg DAILY [facility] Administration Miscellaneous 1 each 10/20/19 22:00 10/21/19 21:59 Lidoderm Patch Removal MC Not Given DAILY@2200 [facility] Non-Formulary Medication 1 applic 10/20/19 16:15 Mometasone Furoate [Mometasone Furoate] TP ASDIR [facility] Xiznq-4-Htga Ethyl Esters 1 gm 10/20/19 22:00 10/21/19 21:58 Lovaza - PO 1 gm BID [facility] Administration Oxycodone HCl 5 mg 10/20/19 19:00 10/21/19 15:52 Roxicodone - PO 5 mg Q6H PRN Administration PAIN LEVEL 7 - 10 Polyethylene Glycol 17 gm 10/20/19 10:00 10/21/19 10:04 Miralax (For Daily Use) - PO 17 gm DAILY [facility] Administration Trazodone HCl 50 mg 10/20/19 16:06 Desyrel - PO HS PRN INSOMNIA Vital Signs Period Temp Pulse Resp BP Sys/Gutierres Pulse Ox Last 24 Hr 98.0 F-98.1 F 74-82 16-18 89-105/44-62 95-95 Constitutional: Yes: No Distress, Calm Respiratory: Yes: CTA Bilaterally Gastrointestinal: Yes: Soft Cardiovascular: Yes: Pulse Irregular JVD: No Carotid Bruit: No PMI: Non-Displaced Heart Sounds: Yes: S1, S2 (irreg, no murmurs) Edema: No Peripheral Pulses WNL: Yes Neurological: Yes: Confusion CBC, BMP 10/21/19 05:10 10/21/19 05:10 AF, 80s, NSST changes Echo: Report Reviewed (07/2019: EF 60%, dilated LA, Mild MR) Prior Cardiac Procedures: PTCA with Stent Ejection Fraction %: LVEF > or = 40 % Imaging - Results Cat Scan: Report Reviewed EKG: Image Reviewed (AF 80s, nsst changes) Assessment/Plan IMP: Recurrent falls Lumbar compression fractures with history of epidural hematoma (07/2019) Permanent AF CAD s/p remote PCI ( per prior history) DM HTN HLD REC: 1. Tele benign, afib with acceptable overall rate control 2. Continue Toprol Xl 50mg daily 3. Hold ASA for now, resume when ok with Neurology and Neurosurgery. She is not a candidate for full AC given the documented history of multiple falls one of which recently resulted in an epidural hematoma. Risks of full AC >> potential benefits in this case. 4. Continue statin 5. PT evaluation prior to discharge. 6. Neurology and N-surgery evaluation pending.
[2019-10-22] MEDS ORDERED: HYDROCHLOROTHIAZIDE 25 MG TABLET (FP) PO SCH (10:00)
[2019-10-22] MEDS: ISOSORBIDE MONONITRATE 30 MG TAB.SR.24H (FP) PO SCH (11:16)
[2019-10-22] MEDS: OMEGA-3 ACID ETHYL ESTERS (FATTY-ACIDS) 1 GM CAPSULE (FP) PO SCH ×2 (11:16→21:30)
[2019-10-22] MEDS: DOCUSATE SODIUM 100 MG CAPSULE (FP) PO SCH ×2 (11:16→21:30)
[2019-10-22] MEDS: LIDOCAINE 5% TOPICAL PATCH TP SCH (11:16)
[2019-10-22] MEDS: MAGNESIUM OXIDE 400 MG TABLET (FP) PO SCH (11:17)
[2019-10-22] MEDS: ASPIRIN 81 MG CHEWABLE TABLETS PO SCH (11:17)
[2019-10-22] MEDS: CLOPIDOGREL BISULFATE 75 MG TABLET (FP) PO SCH (11:17)
[2019-10-22] MEDS: CHOLECALCIFEROL (VIT D3) 400 UNIT (10 MCG) TABLET PO SCH (11:17)
[2019-10-22] MEDS: POLYETHYLENE GLYCOL 3350 119 GM BTL PO SCH (11:17)
[2019-10-22] MEDS: LOSARTAN POTASSIUM 50 MG TABLET (FP) PO SCH (11:23)
[2019-10-22] MEDS: amLODIPine BESYLATE 10 MG TABLET (FP) PO SCH (11:23)
[2019-10-22] MEDS: oxyCODONE HCL 5 MG TABLET PO PRN (15:46)
[2019-10-22] MEDS ORDERED: SODIUM CHLORIDE 1,000 ML IV SCH (19:00)
--- NOTE | 2019-10-22 19:03 | PN ---
Progress Note (short form) - Note Progress Note: Subjective: no fever or chills. No OCASIO , back pain is slightly better but still 7-8/10 . no numbness tingling or weakness Objective: Vital Signs: Last Vital Signs Temp Pulse Resp BP Pulse Ox 98.0 F 79 16 119/56 L 95 10/22/19 14:00 10/22/19 14:00 10/22/19 14:00 10/22/19 14:00 10/22/19 10:00 Laboratory Results - last 24 hr 10/21/19 10/22/19 10/22/19 21:56 05:45 11:25 POC Glucometer 158 115 184 10/22/19 17:29 POC Glucometer 149 Physical Exam: NAD,MMM Cv; irreg irreg . No MRG Lungs: CTAB Ext: NO edema or erythema. Abd: soft, NT, ND, NL BS. Neuro of LE : RLE: hip flexion 5/5, knee flexion /extension 5/5, ankle dorsiflexion /plantar flexion 5/5 LLE: hip flexion 5/5, knee flexion /extension 5/5, ankle dorsiflexion /plantar flexion 5/5 Nl sensation to light touch on both lower extremities. Reflexes: 2+ knee jerk b/l Skin : bruise on R buttock ASSESSMENT AND PLAN: 84 y/o lady with h/o Afib not on AC due to falls, CAD, HTN, HLD, DM II, multiple falls in the past and recent admission for a fall with resultant L2 Fx. She presented after a fall and was found to have acute L1 fx. 1- Fall mechanical Vs syncope. - Cont to monitor on tele. - tele reviewed. A fib with no events 2- Acute L 1 Fx. - cont lidocaine patch. oxy, and standing tylenol - PT - pain management consult pending - Trying to get customized TLSO brace 3- H/o A fib: Not on AC due to frequent falls and recent spinal hematoma - cont asa and plavix as spinal hematoma has resolved - cont toprol 4- HTN : cont imdur and BB but hold losartan due to BP in 90s this am ( due to poor po intake and being on opioids ) . will start gentle hydration x 24 hr 5- Rehab placement pending . Visit type - Emergency Visit Emergency Visit: Yes ED Registration Date: 10/19/19 Care time: The patient presented to the Emergency Department on the above date and was hospitalized for further evaluation of their emergent condition. - New Patient This patient is new to me today: No - Critical Care Critical Care patient: No
[2019-10-22] MEDS ORDERED: PT OWN MED DRAWER 7, Y5N ONE (21:12)
[2019-10-22] MEDS: ATORVASTATIN CA 20 MG TABLET (FP) PO SCH (21:30)
[2019-10-22] MEDS: LIDOCAINE PATCH REMOVAL MC SCH (21:45)
[2019-10-23] MEDS: ACETAMINOPHEN 325 MG TABLET (FP) PO SCH ×4 (00:14→17:13)
[2019-10-23] MEDS: GABAPENTIN 100 MG CAPSULE PO SCH ×3 (06:02→21:16)
[2019-10-23] MEDS: HEPARIN NA (PORCINE) 5,000 UNITS/ML 1ML VIAL SQ SCH ×3 (06:02→21:16)
[2019-10-23] MEDS: INSULIN SLIDING SCALE (NOVOLOG) 1 VIAL SQ SCH ×2 (06:03→17:12)
--- NOTE | 2019-10-23 09:32 | PN ---
Progress Note (short form) - Note Progress Note: Neurology CHIEF COMPLAINT: lower back pain s/p fall HISTORY OF PRESENT ILLNESS: 84 yo F PMH of AFib ( not on AC), DM, HTN, HLD, CAD ( stents 2002, 2003) presented for LBP s/p fall last week. Pt reported falling last week after using the bathroom. pt usually walks with a walker and did not use it when going to the bathroom at home. pt reported feeling dizzy and fell. After fall, pt has been having severe LBP and has been unable to walk. pt's has been caring for her in their apartment. pt has been using diapers as she is unable to walk to the bathroom. pt denied incontinence, stated she needs the diaper bc she cant walk. pt stated she gets these episodes more often and was recently hospitalized for a similar fall. Pt denied headache, CP, n/v. CT of cervical spine performed and demonstrated C4-C5, C5-C6 disc space narrowing, degenerative sclerosis and anterior spondylosis. CT of Thoracic spine reviewed and showed T9 level hemangioma w/o interval change since prior study of . CT of lumbar spine also reviewed and demonstrated L1 recent osteoporotic compression fracture. Sclerotic changes. Mild retropulsion, post cortical disruption. Mild paraspinal edema. L2 chronic compression fracture. Post retropulsion sclerotic changes. Head CT completed and demonstrated mild- moderate atrophy. MRI of Lumbar Spine completed and reviewed, NSGY notes reviewed from weekend. Awaiting TLSO brace per Dr. Wells. Patient feeling better and discussed with at bedside and seems that pain management has been adequate at this time. Greater concern is her subsequent injuries and importance of preventing falls. PAST MEDICAL HISTORY: see HPI PAST SURGICAL HISTORY: denies Family History: HTN Social History: Smoking: denies Alcohol:denies Drugs: denies REVIEW OF SYSTEMS CONSTITUTIONAL: Present: weakness Absent: fever, chills, diaphoresis, malaise, loss of appetite, weight change HEENT: Absent: rhinorrhea, nasal congestion, throat pain, throat swelling, difficulty swallowing, mouth swelling, ear pain, eye pain, visual changes CARDIOVASCULAR: Absent: chest pain, syncope, palpitations, irregular heart rate, lightheadedness , peripheral edema RESPIRATORY: Absent: cough, shortness of breath, dyspnea with exertion, orthopnea, wheezing, stridor, hemoptysis GASTROINTESTINAL: Absent: abdominal pain, abdominal distension, nausea, vomiting, diarrhea, constipation, melena, hematochezia GENITOURINARY: Absent: dysuria, frequency, urgency, hesitancy, hematuria, flank pain, genital pain MUSCULOSKELETAL: Present: back pain Absent: myalgia, arthralgia, joint swelling,neck pain SKIN: Absent: rash, itching, pallor NEUROLOGIC: Present; dizziness, unsteady gait Absent: headache, focal weakness or paresthesias, seizure, mental status changes, bladder or bowel incontinence PSYCHIATRIC: Absent: anxiety, depression, suicidal or homicidal ideation, hallucinations. Allergies ibuprofen Allergy (Severe, Verified 08/10/19 10:48) HOME MEDICATIONS: Home Medications Medication Instructions Recorded Atorvastatin Ca [Lipitor] 20 mg PO HS 09/22/15 metFORMIN HCL [Metformin ER 750 mg PO DAILY 09/22/15 Osmotic] Alendronate Sodium [Fosamax] 1 tab PO WEEKLY 06/14/19 Aspirin [ASA -] 81 mg PO DAILY 06/14/19 Zolpidem Tartrate [Ambien] 10 mg PO HS 06/14/19 Aspirin Coated [Ecotrin -] 81 mg PO DAILY #0 tablet.ec 08/16/19 Docusate Sodium [Colace -] 100 mg PO BID capsule 08/16/19 Lidocaine 5% Patch [Lidoderm -] 1 patch TP DAILY #30 patch 08/16/19 Lidocaine 5% Patch [Lidoderm Patch 1 patch TP DAILY #30 patch 08/16/19 -] Lidocaine Patch Removal [Lidoderm 1 each MC DAILY@2200 #30 each 08/16/19 Patch Removal] Metoprolol Succinate [Toprol XL -] 50 mg PO DAILY #30 tab.sr.24h 08/16/19 Polyethylene Glycol 3350 [Miralax 17 gm PO DAILY bottle 08/16/19 119 gm Btl -] Active Medications Acetaminophen (Ofirmev Injection -) 1,000 mg IVPB Q6H PRN PRN Reason: PAIN LEVEL 6-10 Stop: 10/20/19 16:15 Last Admin: 10/20/19 01:00 Dose: 1,000 mg Atorvastatin Calcium (Lipitor -) 20 mg PO HS [facility] Last Admin: 10/19/19 22:26 Dose: 20 mg Docusate Sodium (Colace -) 100 mg PO BID [facility] Last Admin: 02/20/20 22:26 Dose: 100 mg Sodium Chloride (Normal Saline -) 1,000 mls @ 42 mls/hr IV ASDIR [facility] Last Admin: 10/19/19 16:46 Dose: 42 mls/hr Insulin Aspart (Novolog Vial Sliding Scale -) 1 vial SQ ACHS [facility]; Protocol Last Admin: 10/20/19 06:14 Dose: Not Given Metoprolol Succinate (Toprol Xl -) 50 mg PO DAILY [facility] Morphine Sulfate (Morphine Sulfate) 1 mg IVPUSH Q6H PRN PRN Reason: PAIN LEVEL 7 - 10 Last Admin: 10/20/19 06:18 Dose: 1 mg Polyethylene Glycol (Miralax (For Daily Use) -) 17 gm PO DAILY [facility] PHYSICAL EXAMINATION Vital Signs Period Temp Pulse Resp BP Sys/Gutierres Pulse Ox Last 24 Hr 97.9 F-98.3 F 66-85 18-18 116-126/45-76 96-98 GENERAL: Awake, alert, and fully oriented, in no acute distress. HEAD: Normal with no signs of trauma. EYES: Pupils equal, round and reactive to light, extraocular movements intact EARS, NOSE, THROAT: nares patent, oropharynx clear without exudates. Moist mucous membranes. hard of hearing NECK: supple without lymphadenopathy, JVD, or masses. + hepatojugular LUNGS: Breath sounds equal, clear to auscultation bilaterally. No wheezes, and no crackles. No accessory muscle use. HEART: irregularly irregular, + S1 and S2 ABDOMEN: Soft, nontender, not distended, normoactive bowel sounds, no guarding MUSCULOSKELETAL: paraspinal tenderness and lumbar midline tenderness No CVA tenderness. UPPER EXTREMITIES: 2+ pulses, warm, well-perfused. No cyanosis. No clubbing. No peripheral edema. LOWER EXTREMITIES: 2+ pulses, warm, well-perfused. No calf tenderness. No peripheral edema. NEUROLOGICAL: Cranial nerves II-XII intact. Normal speech. 4/5 muscle strength b/l UE and LE SKIN: Warm, dry, normal turgor, no rashes or lesions noted, normal capillary refill. large ecchymosis of L buttock CBCD WBC 5.4 K/mm3 (4.0-10.0) 10/20/19 07:15 RBC 3.63 M/mm3 (3.60-5.2) 10/20/19 07:15 Hgb 11.5 GM/dL (10.7-15.3) 10/20/19 07:15 Hct 32.9 % (32.4-45.2) 10/20/19 07:15 MCV 90.7 fl (80-96) 10/20/19 07:15 MCHC 34.9 g/dl (32.0-36.0) 10/20/19 07:15 RDW 14.8 % (11.6-15.6) 10/20/19 07:15 Plt Count 406 K/MM3 (134-434) 10/20/19 07:15 MPV 6.9 fl (7.5-11.1) L 10/20/19 07:15 CMP Sodium 135 mmol/L (136-145) L 10/20/19 07:15 Potassium 4.1 mmol/L (3.5-5.1) 10/20/19 07:15 Chloride 104 mmol/L (98-107) 10/20/19 07:15 Carbon Dioxide 23 mmol/L (21-32) 10/20/19 07:15 Anion Gap 8 MMOL/L (8-16) 10/20/19 07:15 BUN 17.6 mg/dL (7-18) 10/20/19 07:15 Creatinine 0.8 mg/dL (0.55-1.3) 10/20/19 07:15 Random Glucose 108 mg/dL (74-106) H 10/20/19 07:15 Calcium 8.9 mg/dL (8.5-10.1) 10/20/19 07:15 Total Bilirubin 0.7 mg/dL (0.2-1) 10/20/19 07:15 AST 18 U/L (15-37) 10/20/19 07:15 ALT 16 U/L (13-61) 10/20/19 07:15 Alkaline Phosphatase 82 U/L (45-117) 10/20/19 07:15 Total Protein 7.0 g/dl (6.4-8.2) 10/20/19 07:15 Albumin 3.5 g/dl (3.4-5.0) 10/20/19 07:15 CARDIAC ENZYMES Creatine Kinase 63 U/L (26-192) 10/19/19 12:35 Troponin I < 0.02 ng/ml (0.00-0.05) 10/19/19 16:42 ASSESSMENT/PLAN: 84 yo F PMH of AFib ( not on AC), DM, HTN, HLD, CAD ( stents 2002, 2003) presented for LBP s/p fall last week. Pt reported falling last week after using the bathroom. pt usually walks with a walker and did not use it when going to the bathroom at home. pt reported feeling dizzy and fell. After fall, pt has been having severe LBP and has been unable to walk. pt's has been caring for her in their apartment. pt has been using diapers as she is unable to walk to the bathroom. pt denied incontinence, stated she needs the diaper bc she cant walk. pt stated she gets these episodes more often and was recently hospitalized for a similar fall. Pt denied headache, CP, n/v. CT of cervical spine performed and demonstrated C4-C5, C5-C6 disc space narrowing, degenerative sclerosis and anterior spondylosis. CT of Thoracic spine reviewed and showed T9 level hemangioma w/o interval change since prior study of . CT of lumbar spine also reviewed and demonstrated L1 recent osteoporotic compression fracture. Sclerotic changes. Mild retropulsion, post cortical disruption. Mild paraspinal edema. L2 chronic compression fracture. Post retropulsion sclerotic changes. Head CT completed and demonstrated mild- moderate atrophy. Lumbar Spine completed and reviewed, NSGY notes reviewed from weekend. Awaiting TLSO brace per Dr. Wells. Patient feeling better and discussed with at bedside and seems that pain management has been adequate at this time. Greater concern is her subsequent injuries and importance of preventing falls.. Continue pain management, monitor for any sedation and avoid overuse of pain medication. Physical therapy as tolerated, fall precautions, assistive device. Likely to require at least short-term rehabilitation.
[2019-10-23] MEDS ORDERED: PT OWN MED DRAWER 7, Y5N ONE ×2 (09:49→21:11)
[2019-10-23] MEDS: LIDOCAINE 5% TOPICAL PATCH TP SCH (10:02)
[2019-10-23] MEDS: ASPIRIN 81 MG CHEWABLE TABLETS PO SCH (10:03)
[2019-10-23] MEDS: ISOSORBIDE MONONITRATE 30 MG TAB.SR.24H (FP) PO SCH (10:03)
[2019-10-23] MEDS: OMEGA-3 ACID ETHYL ESTERS (FATTY-ACIDS) 1 GM CAPSULE (FP) PO SCH ×2 (10:03→21:16)
[2019-10-23] MEDS: CLOPIDOGREL BISULFATE 75 MG TABLET (FP) PO SCH (10:03)
[2019-10-23] MEDS: CHOLECALCIFEROL (VIT D3) 400 UNIT (10 MCG) TABLET PO SCH (10:03)
[2019-10-23] MEDS: amLODIPine BESYLATE 10 MG TABLET (FP) PO SCH (10:03)
[2019-10-23] MEDS: DOCUSATE SODIUM 100 MG CAPSULE (FP) PO SCH ×2 (10:03→21:16)
[2019-10-23] MEDS: MAGNESIUM OXIDE 400 MG TABLET (FP) PO SCH (10:03)
[2019-10-23] MEDS: oxyCODONE HCL 5 MG TABLET PO PRN ×2 (10:04→18:25)
[2019-10-23] MEDS: POLYETHYLENE GLYCOL 3350 119 GM BTL PO SCH (10:05)
--- NOTE | 2019-10-23 12:13 | PN ---
Progress Note, Physician Chief Complaint: fall History of Present Illness: denies cp, sob, palp, syncope - Current Medication List Current Medications: Active Medications Acetaminophen (Tylenol -) 650 mg PO Q6HPO [facility] Last Admin: 10/23/19 11:51 Dose: 650 mg Amlodipine Besylate (Norvasc -) 10 mg PO DAILY [facility] Last Admin: 10/23/19 10:03 Dose: 10 mg Aspirin (Asa -) 81 mg PO DAILY [facility] Last Admin: 10/23/19 10:03 Dose: 81 mg Atorvastatin Calcium (Lipitor -) 20 mg PO HS [facility] Last Admin: 10/22/19 21:30 Dose: 20 mg Cholecalciferol (Vitamin D3 -) 800 unit PO DAILY [facility] Last Admin: 10/23/19 10:03 Dose: 800 unit Clopidogrel Bisulfate (Plavix -) 75 mg PO DAILY [facility] Last Admin: 10/23/19 10:03 Dose: 75 mg Docusate Sodium (Colace -) 100 mg PO BID [facility] Last Admin: 10/23/19 10:03 Dose: 100 mg Gabapentin (Neurontin -) 100 mg PO TID [facility] Last Admin: 10/23/19 06:02 Dose: 100 mg Heparin Sodium (Porcine) (Heparin -) 5,000 unit SQ TID [facility] Last Admin: 10/23/19 06:02 Dose: 5,000 unit Sodium Chloride (Normal Saline -) 1,000 mls @ 75 mls/hr IV ASDIR [facility] Stop: 10/23/19 18:59 Last Admin: 10/22/19 21:29 Dose: 75 mls/hr Insulin Aspart (Novolog Vial Sliding Scale -) [facility]; Protocol Last Admin: 10/23/19 06:03 Dose: Not Given Isosorbide Mononitrate (Imdur -) 30 mg PO DAILY [facility] Last Admin: 10/23/19 10:03 Dose: 30 mg Lidocaine (Lidoderm Patch -) 1 patch TP DAILY [facility] Last Admin: 10/23/19 10:02 Dose: 1 patch Magnesium Oxide (Mag-Ox -) 400 mg PO DAILY [facility] Last Admin: 10/23/19 10:03 Dose: 400 mg Metoprolol Succinate (Toprol Xl -) 50 mg PO DAILY [facility] Last Admin: 10/23/19 10:03 Dose: 50 mg Miscellaneous (Lidoderm Patch Removal) 1 each MC DAILY@2200 [facility] Last Admin: 10/22/19 21:45 Dose: Not Given Non-Formulary Medication (Mometasone Furoate [Mometasone Furoate]) 1 applic TP ASDIR [facility] [id number] Ethyl Esters (Lovaza -) 1 gm PO BID [facility] Last Admin: 10/23/19 10:03 Dose: 1 gm Oxycodone HCl (Roxicodone -) 5 mg PO Q6H PRN PRN Reason: PAIN LEVEL 7 - 10 Last Admin: 10/23/19 10:04 Dose: 5 mg Polyethylene Glycol (Miralax (For Daily Use) -) 17 gm PO DAILY [facility] Last Admin: 10/23/19 10:05 Dose: 17 gm Trazodone HCl (Desyrel -) 50 mg PO HS PRN PRN Reason: INSOMNIA Last Admin: 10/22/19 21:30 Dose: 50 mg - Objective Vital Signs: Vital Signs Temperature 98.2 F 10/23/19 05:39 Pulse Rate 76 10/23/19 05:39 Respiratory Rate 18 10/23/19 05:39 Blood Pressure 105/49 L 10/23/19 05:39 O2 Sat by Pulse Oximetry (%) 95 10/22/19 21:00 Constitutional: Yes: Well Nourished, No Distress, Calm Cardiovascular: Yes: Pulse Irregular, S1, S2. No: Gallop, Murmur Respiratory: Yes: Regular, CTA Bilaterally. No: Accessory Muscle Use Extremities: No: Cold Edema: No Neurological: Yes: Alert. No: Seizure Psychiatric: No: Agitated Labs: CBC, BMP 10/21/19 05:10 10/21/19 05:10 INR, PTT INR 0.89 (0.83-1.09) 10/19/19 12:35 Assessment/Plan Echo: Report Reviewed (07/2019: EF 60%, dilated LA, Mild MR) Prior Cardiac Procedures: PTCA with Stent Ejection Fraction %: LVEF > or = 40 % Imaging - Results Cat Scan: Report Reviewed EKG: Image Reviewed (AF 80s, nsst changes) Assessment/Plan IMP: Recurrent falls Lumbar compression fractures with history of epidural hematoma (07/2019) Permanent AF CAD s/p remote PCI ( per prior history) DM HTN HLD REC: 1. Tele benign, afib with acceptable overall rate control 2. Continue Toprol Xl 50mg daily 3. Hold ASA for now, resume when ok with Neurology and Neurosurgery. She is not a candidate for full AC given the documented history of multiple falls one of which recently resulted in an epidural hematoma. Risks of full AC >> potential benefits in this case. 4. Continue statin 5. PT evaluation prior to discharge. 6. Neurology and N-surgery evaluation pending.
--- NOTE | 2019-10-23 15:19 | PN ---
Teaching Attending Note Name of Resident: Teresa García ATTENDING PHYSICIAN STATEMENT I saw and evaluated the patient. I reviewed the resident's note and discussed the case with the resident. I agree with the resident's findings and plan as documented. SUBJECTIVE: No fever or chills. No OCASIO , no CP or SOB. She has lower back pain still OBJECTIVE: NAD,MMM Cv; irreg irreg . No MRG Lungs: CTAB Ext: NO edema or erythema. Abd: soft, NT, ND, NL BS. Neuro of LE: RLE: hip flexion 5/5, knee flexion /extension 5/5, ankle dorsiflexion /plantar flexion 5/5 LLE: hip flexion 5/5, knee flexion /extension 5/5, ankle dorsiflexion /plantar flexion 5/5 Nl sensation to light touch on both lower extremities. Reflexes: 2+ knee jerk b/l Skin: bruise on R buttock ASSESSMENT AND PLAN: 84 y/o lady with h/o Afib not on AC due to falls, CAD, HTN, HLD, DM II, multiple falls in the past and recent admission for a fall with resultant L2 Fx. She presented after a fall and was found to have acute L1 fx. 1- Fall mechanical Vs syncope. - Tele reviewed. no events aside form A fib - dc tele 2- Acute L 1 Fx. - cont lidocaine patch. oxy, and standing tylenol - Pt eval noted - pain management consult pending . team spoke to Dr. Moreno. - Trying to get customized TLSO brace 3- H/o A fib: Not on AC due to frequent falls and recent spinal hematoma - cont asa. Dc Plavix as per D/w Dr. Hernandez today. Her PCi was in 2003. - team d/w Dr. Wells. Ok with anti-platelets. - cont toprol 4- HTN: cont imdur and BB. monitor closely on norvasc 5- Rehab placement pending. Spoke with SW. d/w Dr. Hernandez.
--- NOTE | 2019-10-23 16:42 | PN ---
Physical Exam: SUBJECTIVE: Patient seen and examined at bedside. pt has no acute complaints. pain is well controlled. OBJECTIVE: Vital Signs Period Temp Pulse Resp BP Sys/Gutierres Pulse Ox Last 24 Hr 98.2 F-98.4 F 62-85 16-18 91-136/49-70 95-96 GENERAL: The patient is awake, alert, and oriented, in no acute distress. HEAD: Normal with no signs of trauma. LUNGS: Breath sounds equal, clear to auscultation bilaterally, no wheezes, no crackles, no accessory muscle use. HEART: Regular rate and rhythm, S1, S2 without murmur, rub or gallop. ABDOMEN: Soft, nontender, nondistended, normoactive bowel sounds, no guarding EXTREMITIES: 2+ pulses, warm, well-perfused, no edema. SKIN: Warm, dry, normal turgor, no rashes or lesions noted Laboratory Results - last 24 hr 10/22/19 10/22/19 10/23/19 17:29 21:27 06:00 POC Glucometer 149 114 106 10/23/19 10/23/19 11:23 16:11 POC Glucometer 97 137 Current Medications Acetaminophen (Tylenol -) 650 mg PO Q6HPO [facility] Last Admin: 10/23/19 11:51 Dose: 650 mg Amlodipine Besylate (Norvasc -) 10 mg PO DAILY [facility] Last Admin: 10/23/19 10:03 Dose: 10 mg Aspirin (Asa -) 81 mg PO DAILY [facility] Last Admin: 10/23/19 10:03 Dose: 81 mg Atorvastatin Calcium (Lipitor -) 20 mg PO HS [facility] Last Admin: 10/22/19 21:30 Dose: 20 mg Cholecalciferol (Vitamin D3 -) 800 unit PO DAILY [facility] Last Admin: 10/23/19 10:03 Dose: 800 unit Docusate Sodium (Colace -) 100 mg PO BID [facility] Last Admin: 10/23/19 10:03 Dose: 100 mg Gabapentin (Neurontin -) 100 mg PO TID [facility] Last Admin: 10/23/19 13:31 Dose: 100 mg Heparin Sodium (Porcine) (Heparin -) 5,000 unit SQ TID [facility] Last Admin: 10/23/19 13:31 Dose: 5,000 unit Sodium Chloride (Normal Saline -) 1,000 mls @ 75 mls/hr IV ASDIR [facility] Stop: 10/23/19 18:59 Last Admin: 10/22/19 21:29 Dose: 75 mls/hr Insulin Aspart (Novolog Vial Sliding Scale -) 1 vial SQ BIDAC [facility]; Protocol Last Admin: 10/23/19 06:03 Dose: Not Given Isosorbide Mononitrate (Imdur -) 30 mg PO DAILY [facility] Last Admin: 10/23/19 10:03 Dose: 30 mg Lidocaine (Lidoderm Patch -) 1 patch TP DAILY [facility] Last Admin: 10/23/19 10:02 Dose: 1 patch Magnesium Oxide (Mag-Ox -) 400 mg PO DAILY [facility] Last Admin: 10/23/19 10:03 Dose: 400 mg Metoprolol Succinate (Toprol Xl -) 50 mg PO DAILY [facility] Last Admin: 10/23/19 10:03 Dose: 50 mg Miscellaneous (Lidoderm Patch Removal) 1 each MC DAILY@2200 [facility] Last Admin: 10/22/19 21:45 Dose: Not Given Non-Formulary Medication (Mometasone Furoate [Mometasone Furoate]) 1 applic TP ASDIR [facility] [id number] Ethyl Esters (Lovaza -) 1 gm PO BID [facility] Last Admin: 10/23/19 10:03 Dose: 1 gm Oxycodone HCl (Roxicodone -) 5 mg PO Q6H PRN PRN Reason: PAIN LEVEL 7 - 10 Last Admin: 10/23/19 10:04 Dose: 5 mg Polyethylene Glycol (Miralax (For Daily Use) -) 17 gm PO DAILY [facility] Last Admin: 10/23/19 10:05 Dose: 17 gm Trazodone HCl (Desyrel -) 50 mg PO HS PRN PRN Reason: INSOMNIA Last Admin: 10/22/19 21:30 Dose: [address] Lumbar spine: Impression L1. Recent, acute osteoporotic compression fractures involving the superior endplate of L1. Sclerotic changes are noted in compressed L1 vertebral body. Mild retropulsion, posterior cortical disruption, encroaching on the anterior epidural space. The vertical height of compressed L2 vertebral body 14 mm, versus 19 mm on MRI of lumbosacral spine August 14, 2019. Mild paraspinal edema noted. L2. Chronic compression fracture of L2 vertebral body with significant loss of vertical height posterior retropulsion. Sclerotic changes are noted in the compressed L2 vertebral body. Please refer to the MRI of the lumbosacral spine August 14, 2016. MR Lumbar spine: L1. Acute osteoporotic compression fracture of L1 vertebral body with retropulsion of the posterior cortex encroaching on the ventral subarachnoid space. T1 low signal intensity of the bone marrow with bone marrow edema on the T2 STIR WI. L1-L2 increased intervertebral disc space height. T2 hyperintensity noted in the superior aspect of the intervertebral disc space beneath the compressed inferior endplate of L1 representing fluid, edema or vacuum phenomena within the disc material. Mild paraspinal edema. L2. Chronic compression fracture of L2 vertebral body with bone marrow edema. Mildly retropulsion of the posterior cortex of compressed L2 vertebral body. Resolved epidural hemorrhage. ASSESSMENT/PLAN: 84 yo F PMH of AFib ( not on AC), DM, HTN, HLD, CAD ( stents 2002, 2003) presents for LBP s/p fall last week. pt is admitted for acute L1 Compression Fracture Low Back pain 2/2 L1 compression fracture - CT scan above. MRI reviewed - Neurosurgery consult, Dr. Wells. Will attempt to get custom TLSO brace . will need to f/u outpt for brace - c/w tylenol, lidoderm patch, oxycodone 5 mg for breakthrough pain - incentive spirometry -PT, walked 30 ft - pending pain mgmt recommendations. Fall 2/2 pre-syncope - r/o cardiac events -EKG reviewed, Afib , no ST changes - Echo recently in july reviewed, EF 55-60 & . recent carotid u/s done w ithout significant stenosis - cardio consult , Dr. Ceron - trop negative - UA negative pt home meds include ambien, will DC Hyponatremia -improving Common bile duct dilation -TTP on initial encounter, MRI shows CBD dilation of 1.3 cm. - RUQ u/s finding above. no leukocytosis or fevers. pt should f/u findings outpt Afib - rate controled - c.w metoprolol HTN - c/.w metoprolol CAD ( s/p stents) - c/w home asa, statin - continue asa. Dr. Wells states asa is ok to continue - pt does not need to continue plavix. confirmed with cardiology Vitamin D Def - will give daily V D DVT ppx: SCDs DC tomorrow to rehab in [place] Dispo: med/surg Visit type - Emergency Visit Emergency Visit: No - New Patient This patient is new to me today: No - Critical Care Critical Care patient: No - Discharge Referral Referred to [facility] Med P.C.: No ATTENDING PHYSICIAN STATEMENT I saw and evaluated the patient. I reviewed the resident's note and discussed the case with the resident. I agree with the resident's findings and plan as documented. SUBJECTIVE: OBJECTIVE: ASSESSMENT AND PLAN:
--- NOTE | 2019-10-23 20:46 | CONSULT ---
Consult Consult Specialty:: pain management Referred by:: hospitalist Reason for Consultation:: back pain - History of Present Illness Chief Complaint: back pain History of Present Illness: 84 year old woman serbian speaking with history of severe back pain. History obtained tonight from chart. MRI reviewed- acute l1 and l2 compression fracture. - Past Medical History Cardio/Vascular: Yes: CAD, HTN, Hyperlipdemia ...: No Endocrine: Yes: Diabetes Mellitus - Past Surgical History Past Surgical History: Yes: None - Alcohol/Substance Use Hx Alcohol Use: No History of Substance Use: reports: None - Smoking History Smoking history: Never smoked Have you smoked in the past 12 months: No - Social History ADL: Family Assistance Occupation: housewife History of Recent Travel: No Home Medications - Allergies Allergies/Adverse Reactions: Allergies Allergy/AdvReac Type Severity Reaction Status Date / Time ibuprofen Allergy Severe Verified 08/10/19 10:48 - Home Medications Home Medications: Ambulatory Orders Atorvastatin Ca [Lipitor] 20 mg PO HS 09/22/15 metFORMIN HCL [Metformin ER Osmotic] 750 mg PO DAILY 09/22/15 Alendronate Sodium [Fosamax] 1 tab PO WEEKLY 06/14/19 Zolpidem Tartrate [Ambien] 5 mg PO HS 06/14/19 Aspirin Coated [Ecotrin -] 81 mg PO DAILY #0 tablet.ec 08/16/19 Docusate Sodium [Colace -] 100 mg PO BID capsule 08/16/19 Lidocaine 5% Patch [Lidoderm Patch -] 1 patch TP DAILY #30 patch 08/16/19 Lidocaine Patch Removal [Lidoderm Patch Removal] 1 each MC DAILY@2200 #30 each 08/16/19 Metoprolol Succinate [Toprol XL -] 50 mg PO DAILY #30 tab.sr.24h 08/16/19 Polyethylene Glycol 3350 [Miralax 119 gm Btl -] 17 gm PO DAILY bottle 08/16/19 Amlodipine Besylate 10 mg PO DAILY 10/20/19 Clopidogrel Bisulfate [Clopidogrel] 75 mg PO DAILY 10/20/19 Hydrochlorothiazide [Hctz -] 1 tab PO WEEKLY 10/20/19 Icosapent Ethyl [Vascepa] 1 cap PO BID 10/20/19 Isosorbide Mononitrate [Isosorbide Mononitrate ER] 30 mg PO DAILY 10/20/19 Losartan Potassium 100 mg PO DAILY 10/20/19 Magnesium Oxide 400 mg PO DAILY 10/20/19 Mometasone Furoate 1 applic TP ASDIR 10/20/19 traZODone HCL [Trazodone HCl] 50 mg PO HS PRN 10/20/19 Physical Exam Vital Signs: Vital Signs Temperature 97.9 F 10/23/19 18:00 Pulse Rate 98 H 10/23/19 18:39 Respiratory Rate 18 10/23/19 18:39 Blood Pressure 118/76 10/23/19 18:39 O2 Sat by Pulse Oximetry (%) 96 10/23/19 09:00 Breast(s): Yes: Skin Changes Musculoskeletal: Yes: Back Pain Labs: CBC, BMP 10/21/19 05:10 10/21/19 05:10 Assessment/Plan Acute l1 and l2 compression fracture - can consider kyphoplasty at l1 and l2 - will need to hold plavix 7 days prior to procedure - continue tylenol prn pain, lidocaine patch, back brace - if patient would like to pursue the procedure please recall to arrange the procedure
[2019-10-23] MEDS: ATORVASTATIN CA 20 MG TABLET (FP) PO SCH (21:16)
[2019-10-23] MEDS: LIDOCAINE PATCH REMOVAL MC SCH (21:16)
[2019-10-24] MEDS: ACETAMINOPHEN 325 MG TABLET (FP) PO SCH ×3 (00:19→13:05)
[2019-10-24] MEDS: INSULIN SLIDING SCALE (NOVOLOG) 1 VIAL SQ SCH (06:04)
[2019-10-24] MEDS: GABAPENTIN 100 MG CAPSULE PO SCH ×2 (06:34→14:21)
[2019-10-24] MEDS: HEPARIN NA (PORCINE) 5,000 UNITS/ML 1ML VIAL SQ SCH ×2 (06:34→14:22)
[2019-10-24] MEDS: ISOSORBIDE MONONITRATE 30 MG TAB.SR.24H (FP) PO SCH (11:02)
[2019-10-24] MEDS: MAGNESIUM OXIDE 400 MG TABLET (FP) PO SCH (11:02)
[2019-10-24] MEDS: DOCUSATE SODIUM 100 MG CAPSULE (FP) PO SCH (11:02)
[2019-10-24] MEDS: amLODIPine BESYLATE 10 MG TABLET (FP) PO SCH (11:02)
[2019-10-24] MEDS: OMEGA-3 ACID ETHYL ESTERS (FATTY-ACIDS) 1 GM CAPSULE (FP) PO SCH (11:02)
[2019-10-24] MEDS: CHOLECALCIFEROL (VIT D3) 400 UNIT (10 MCG) TABLET PO SCH (11:02)
[2019-10-24] MEDS: ASPIRIN 81 MG CHEWABLE TABLETS PO SCH (11:02)
[2019-10-24] MEDS: LIDOCAINE 5% TOPICAL PATCH TP SCH (11:03)
[2019-10-24] MEDS: POLYETHYLENE GLYCOL 3350 119 GM BTL PO SCH (11:03)
--- NOTE | 2019-10-24 11:26 | PN ---
Progress Note (short form) - Note Progress Note: s: no chest pain, palps, dizziness, dyspnea Current Medications Acetaminophen (Tylenol -) 650 mg PO Q6HPO [facility] Last Admin: 10/24/19 06:34 Dose: 650 mg Amlodipine Besylate (Norvasc -) 10 mg PO DAILY [facility] Last Admin: 10/24/19 11:02 Dose: 10 mg Aspirin (Asa -) 81 mg PO DAILY [facility] Last Admin: 10/24/19 11:02 Dose: 81 mg Atorvastatin Calcium (Lipitor -) 20 mg PO HS [facility] Last Admin: 10/23/19 21:16 Dose: 20 mg Cholecalciferol (Vitamin D3 -) 800 unit PO DAILY [facility] Last Admin: 10/24/19 11:02 Dose: 800 unit Docusate Sodium (Colace -) 100 mg PO BID [facility] Last Admin: 10/24/19 11:02 Dose: 100 mg Gabapentin (Neurontin -) 100 mg PO TID [facility] Last Admin: 10/24/19 06:34 Dose: 100 mg Heparin Sodium (Porcine) (Heparin -) 5,000 unit SQ TID [facility] Last Admin: 10/24/19 06:34 Dose: 5,000 unit Insulin Aspart ([facility] Sliding Scale -[facility] Last Admin: 10/24/19 06:04 Dose: Not Given Isosorbide Mononitrate (Imdur -) 30 mg PO DAILY [facility] Last Admin: 10/24/19 11:02 Dose: 30 mg Lidocaine (Lidoderm Patch -) 1 patch TP DAILY [facility] Last Admin: 10/24/19 11:03 Dose: Not Given Magnesium Oxide (Mag-Ox -) 400 mg PO DAILY [facility] Last Admin: 10/24/19 11:02 Dose: 400 mg Metoprolol Succinate (Toprol Xl -) 50 mg PO DAILY [facility] Last Admin: 10/24/19 11:01 Dose: 50 mg Miscellaneous (Lidoderm Patch Removal) 1 each MC DAILY@2200 [facility] Last Admin: 10/23/19 21:16 Dose: Not Given Non-Formulary Medication (Mometasone Furoate [Mometasone Furoate]) 1 applic TP ASDIR [facility] [id number] Ethyl Esters (Lovaza -) 1 gm PO BID [facility] Last Admin: 10/24/19 11:02 Dose: 1 gm Polyethylene Glycol (Miralax (For Daily Use) -) 17 gm PO DAILY [facility] Last Admin: 10/24/19 11:03 Dose: 17 gm Trazodone HCl (Desyrel -) 50 mg PO HS PRN PRN Reason: INSOMNIA Last Admin: 10/22/19 21:30 Dose: 50 mg Vital Signs Period Temp Pulse Resp BP Sys/Gutierres Pulse Ox Last 24 Hr 97.6 F-98.2 F 62-98 18-18 91-136/55-76 96 Constitutional: Yes: Well Nourished, No Distress, Calm Cardiovascular: Yes: Pulse Irregular, S1, S2. No: Gallop, Murmur Respiratory: Yes: Regular, CTA Bilaterally. No: Accessory Muscle Use Extremities: No: Cold Edema: No Neurological: Yes: Alert. No: Seizure Psychiatric: No: Agitated no jaundice, diaphoresis Assessment/Plan Echo: Report Reviewed (07/2019: EF 60%, dilated LA, Mild MR) Prior Cardiac Procedures: PTCA with Stent Ejection Fraction %: LVEF > or = 40 % Imaging - Results Cat Scan: Report Reviewed EKG: Image Reviewed (AF 80s, nsst changes) Assessment/Plan IMP: Recurrent falls Lumbar compression fractures with history of epidural hematoma (07/2019) Permanent AF CAD s/p remote PCI ( per prior history) DM HTN HLD REC: 1. Tele benign, afib with acceptable overall rate control 2. Continue Toprol Xl 50mg daily 3. She is not a candidate for full AC given the documented history of multiple falls one of which recently resulted in an epidural hematoma. Risks of full AC > > potential benefits in this case. 4. Continue statin 5. plan for rehab after dc 6. repeat MRI here showed resolution of ICH - Aspirin resumed, okay per neurosurgery. Would continue aspirin alone given high falls risk and increased bleeding risk on DAPT 7. rec outpatient cardio f/u in 2-4 weeks
--- NOTE | 2019-10-24 14:00 | PN ---
Teaching Attending Note Name of Resident: Teresa García ATTENDING PHYSICIAN STATEMENT I saw and evaluated the patient. I reviewed the resident's note and discussed the case with the resident. I agree with the resident's findings and plan as documented. SUBJECTIVE: back pain. no incontinence. no SOB OBJECTIVE: NAD,MMM Cv; irreg irreg . No MRG Lungs: CTAB Ext: NO edema or erythema. Neuro of LE: RLE: hip flexion 5/5, knee flexion /extension 5/5, ankle dorsiflexion /plantar flexion 5/5. LLE: hip flexion 5/5, knee flexion /extension 5/5, ankle dorsiflexion /plantar flexion 5/5. Nl sensation to light touch on both lower extremities. Reflexes: 2+ knee jerk b/l ASSESSMENT AND PLAN: 84 y/o lady with h/o Afib not on AC due to falls, CAD, HTN, HLD, DM II, multiple falls in the past and recent admission for a fall with resultant L2 Fx. She presented after a fall and was found to have acute L1 fx. 1- Fall mechanical Vs syncope. Vit D replacement. repeat level as out pt 2- Acute L 1 Fx. - cont lidocaine patch. oxy prescribed after dc for a short period of time - We scheduled the patient an appointment with Dr. Moreno to evaluate fro Kyphoplasty - customized TLSO brace , to be arranged by Dr. Wells when she visits 3- H/o A fib: Not on AC due to frequent falls and recent spinal hematoma - Cont asa. will not resume plavix at DC - cont toprol 4- HTN: cont imdur and BB. monitor closely on norvasc dc to rehab .
[2019-10-24 14:22] VITALS: BP 98/56; PULSE 84; TEMP 98.2
--- NOTE | 2019-10-24 19:42 | DS ---
Physical Exam: SUBJECTIVE: Patient seen and examined at bedside. pt states that she is having trouble sleeping at night and is unsure why. she states her pain is improving. OBJECTIVE: Vital Signs Period Temp Pulse Resp BP Sys/Gutierres Pulse Ox Last 24 Hr 97.6 F-98.2 F 77-96 18-18 98-140/56-95 96-96 PHYSICAL EXAM GENERAL: The patient is awake, alert, and fully oriented, in no acute distress. HEAD: Normal with no signs of trauma. LUNGS: Breath sounds equal, clear to auscultation bilaterally, no wheezes, no crackles, no accessory muscle use. HEART: Regular rate and rhythm, S1, S2 without murmur, rub or gallop. ABDOMEN: Soft, nontender, nondistended, normoactive bowel sounds, no guarding, no rebound, no hepatosplenomegaly, no masses. SKIN: Warm, dry, normal turgor, no rashes or lesions noted. LABS Laboratory Results - last 24 hr 10/23/19 10/24/19 20:46 05:40 POC Glucometer 129 95 HOSPITAL COURSE: Date of Admission:10/19/19 CT Lumbar spine: Impression L1. Recent, acute osteoporotic compression fractures involving the superior endplate of L1. Sclerotic changes are noted in compressed L1 vertebral body. Mild retropulsion, posterior cortical disruption, encroaching on the anterior epidural space. The vertical height of compressed L2 vertebral body 14 mm, versus 19 mm on MRI of lumbosacral spine August 14, 2019. Mild paraspinal edema noted. L2. Chronic compression fracture of L2 vertebral body with significant loss of vertical height posterior retropulsion. Sclerotic changes are noted in the compressed L2 vertebral body. Please refer to the MRI of the lumbosacral spine August 14, 2016. MR Lumbar spine: L1. Acute osteoporotic compression fracture of L1 vertebral body with retropulsion of the posterior cortex encroaching on the ventral subarachnoid space. T1 low signal intensity of the bone marrow with bone marrow edema on the T2 STIR WI. L1-L2 increased intervertebral disc space height. T2 hyperintensity noted in the superior aspect of the intervertebral disc space beneath the compressed inferior endplate of L1 representing fluid, edema or vacuum phenomena within the disc material. Mild paraspinal edema. L2. Chronic compression fracture of L2 vertebral body with bone marrow edema. Mildly retropulsion of the posterior cortex of compressed L2 vertebral body. Resolved epidural hemorrhage. 84 yo F PMH of AFib ( not on AC), DM, HTN, HLD, CAD ( stents 2002, 2003) presents for LBP s/p fall last week. pt is admitted for acute L1 Compression Fracture. Pt had a CT scan and an MRI outlined above. Pt was evaluated with Dr. Wells and is recommended to f/u outpt for a custom TLSO brace. pt should continue oxycodone, tylenol and lidoderm patch for pain. pt is encouraged to use incentive spirometry. Pt was working with PT while in the hospital and evaluated by pain mgmt. pt should f/u outpt with pain mgmt to evaluate for kyphoplasty. Pt was also evaluated by cardio for the fall and was stable with no cardiac events on the tele monitoring. pt had a CBD dilation on initial imaging and a RUQ u/s was done. pt is asymptomatic and should f/u with PMD. Pt was advised to DC plavix . pt should continue asa on discharge.lab results also show pt is vitamin D deficient, recommending 800 U Vitamin D outpt and f/u with PMD. Pt is discharged to rehab. Pt is advised to decrease her ambien dose to 2.5. Date of Discharge: 10/24/19 Minutes to complete discharge: 38 Discharge Summary Problems reviewed: Yes Reason For Visit: FALL AT HOME Condition: Improved - Instructions Diet, Activity, Other Instructions: You came into the hospital after a fall at home. We did a Catscan of your spine and your head. Your Catscan shows that you have a fracture of your spine. You were evaluated by neurosurgery, who did not find any need for surgery. 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 You should have a follow up Catscan in 3 months to further evaluate this . also follow up with GI doctor regarding that ( might need an MRI) While you were in the hospital, we also monitored your heart to watch your Afib. You blood work shows that you have a Vitamin D deficiency, we started giving you Vitamin D. MEDICATIONS We have made some changes to your medications Please do NOT take Plavix any more. We have decreased your Ambien to 2.5 mg at night if needed for insomnia. this could be causing your falls. DO NOT take any more of your old ambien pills. We started you on Gabapentin 100mg THREE times a day. We started you on Vitamin D 800 U daily. Please continue your other home medications as prescribed, including your Lidoderm Patch which we have refilled your prescription for. Please follow up with your primary medical physician to monitor your health and improvement. Please follow up with the neurosurgeon, Dr. Wells, to get fitted for your custom back brace. Please follow up with the painting machine operator, Dr. Moreno to help manage your back pain. we have made an appointment for you on November 01 () at 3:30pm on [address] [place] [address]. Please follow up with your Utility Bill Collector Dr. Estrada within the next 2-4 weeks for management of your Coronary Arterial Disease Follow up with Dr. Montes , * GI) or any GI specialist you choose, to evaluate your pancreatic cyst You are being discharged to rehab to help your muscles get stronger. If you have any new, worsening, or concerning symptoms please return to the ED or call 911. follow up with your lead scientist, dr. estrada. your plavix was stopped this admission. please see him for this regards in 2-3 weeks You need repeat Vit D level in 6 weeks Referrals: Lonnie Moreno MD [Staff Physician] - 1 Week Armani Wells MD [Staff Physician] - 1 Week Mariposa Montes DO [Staff Physician] - ON STAFF,NOT [Primary Care Provider] - 1 Week Disposition: [facility] - Home Medications Comprehensive Discharge Medication List: Ambulatory Orders Atorvastatin Ca [Lipitor] 20 mg PO HS 09/22/15 metFORMIN HCL [Metformin ER Osmotic] 750 mg PO DAILY 09/22/15 Alendronate Sodium [Fosamax] 1 tab PO WEEKLY 06/14/19 Aspirin Coated [Ecotrin -] 81 mg PO DAILY #0 tablet.ec 08/16/19 Docusate Sodium [Colace -] 100 mg PO BID capsule 08/16/19 Metoprolol Succinate [Toprol XL -] 50 mg PO DAILY #30 tab.sr.24h 08/16/19 Polyethylene Glycol 3350 [Miralax 119 gm Btl -] 17 gm PO DAILY bottle 08/16/19 Amlodipine Besylate 10 mg PO DAILY 10/20/19 Hydrochlorothiazide [Hctz -] 1 tab PO WEEKLY 10/20/19 Icosapent Ethyl [Vascepa] 1 cap PO BID 10/20/19 Isosorbide Mononitrate [Isosorbide Mononitrate ER] 30 mg PO DAILY 10/20/19 Losartan Potassium 100 mg PO DAILY 10/20/19 Magnesium Oxide 400 mg PO DAILY 10/20/19 Mometasone Furoate 1 applic TP ASDIR 10/20/19 traZODone HCL [Trazodone HCl] 50 mg PO HS PRN 10/20/19 Cholecalciferol (Vitamin D3) [Vitamin D -] 800 unit PO DAILY #30 tab 10/24/19 Gabapentin [Neurontin -] 100 mg PO TID 30 Days #90 capsule 10/24/19 Lidocaine 5% Patch [Lidoderm -] 1 patch TP DAILY #20 patch 10/24/19 Oxycodone HCl 2.5 mg PO Q8H PRN #20 tablet MDD 7.5 mg 10/24/19 This patient is new to me today: No Emergency Visit: No Critical Care patient: No - Discharge Referral Referred to [facility] Med [facility] No ATTENDING PHYSICIAN STATEMENT I saw and evaluated the patient. I reviewed the resident's note and discussed the case with the resident. I agree with the resident's findings and plan as documented. SUBJECTIVE: OBJECTIVE: ASSESSMENT AND PLAN:
== END 2019-10-24 16:30 | DRG 543 ==
LOC: JER 11:25 → JERBED 14:44 → J4S 20:05
PROVIDERS: ATTEND Internal Medicine
DX: M48.56XA Collapsed vertebra, not elsewhere classified, lumbar region, initial encounter for fracture (principal); E87.1 Hypo-osmolality and hyponatremia; I48.21 Permanent atrial fibrillation; R29.6 Repeated falls; E11.9 Type 2 diabetes mellitus without complications; I10 Essential (primary) hypertension; I25.10 Atherosclerotic heart disease of native coronary artery without angina pectoris; E78.5 Hyperlipidemia, unspecified; Z95.5 Presence of coronary angioplasty implant and graft; R55 Syncope and collapse; E55.9 Vitamin D deficiency, unspecified; W19.XXXA Unspecified fall, initial encounter; Y93.9 Activity, unspecified; Y92.098 Other place in other non-institutional residence as the place of occurrence of the external cause; Y99.9 Unspecified external cause status
CPT/HCPCS: 36415; 70450-TC; 71045-TC-FY; 72125-TC; 72128-TC; 72131-TC; 72148-TC; 73030-TC-LT-FY; 73523-TC-FY; 76705-TC; 80053; 81003; 82306; 82550; 82607; 82962; 83036; 83735; 84100; 84484; 85025; 85027; 85610; 85730; 86593; 87086; 93005; 93010; 97116-GP; 97161-GP; 99285-25; J0131; J1644; J7030

== ENCOUNTER 2022-05-20 18:10 | Emergency (ER) | payer OTHER ==
[2022-05-20 18:32] VITALS: BP 108/64; PULSE 86; RESP 17; TEMP 98.4; BMI 28.8
[2022-05-20 21:44] LABS: BASO % 1.2 % (0-2.0); EOS % 3.1 % (0-4.5); HEMATOCRIT 28.4 % (32.4-45.2); HEMOGLOBIN 9.5 GM/dL (10.7-15.3); LYMPH % 34.5 % (8-40); MCH 28.4 pg (25.7-33.7); MCHC 33.4 g/dl (32.0-36.0); MEAN PLT VOLUME 7.4 fl (7.5-11.1); MONO % 7.1 % (3.8-10.2); NEUT % 54.1 % (42.8-82.8); PLATELET COUNT 339 10^3/uL (134-434); RBC 3.34 M/mm3 (3.60-5.2); RDW 17.7 % (11.6-15.6); WHITE BLOOD COUNT 6.5 K/mm3 (4.0-10.0)
[2022-05-20 21:53] LABS: INR 1.2 (0.83-1.09); PROTHROMBIN TIME (PATIENT) 13.8 SEC (9.7-13.0)
[2022-05-20 21:54] LABS: CALCIUM 9.3 mg/dL (8.5-10.1)
[2022-05-20 21:55] LABS: ALBUMIN 3.2 g/dl (3.4-5.0)
[2022-05-20 21:58] LABS: CREATININE 1.1 mg/dL (0.55-1.3)
[2022-05-20 22:00] LABS: BILIRUBIN,TOTAL 0.5 mg/dL (0.2-1); TOT PROT 7.5 g/dl (6.4-8.2)
== END 2022-05-21 00:29 | disposition home or self-care (01) ==
LOC: JERFT 18:10 → JER 18:10 → JERFT 05-21 00:29
DX: M25.561 Pain in right knee (principal); R23.3 Spontaneous ecchymoses
CPT/HCPCS: 36415; 73562-TC-RT-FY; 80053; 85025; 85610; 85730; 93970-TC; 99284-25